=== PATIENT | female | born 1950 | race Hispanic/Latino ===

== ENCOUNTER 2017-05-20 14:01 | Emergency (ER) | payer MEDICARE ==
[~2017-05-20] VITALS: Ht 142.2 cm; Wt 92.1 kg
[~2017-05-20 14:01] MED LIST: ASCORBIC ACID500 MG PO; ASPIRIN325 MG PO; BACLOFEN10 MG PO; CRESTOR10 MG PO; FENOFIBRATE145 MG PO; GABAPENTIN100 MG PO; GABAPENTIN300 MG PO; GLIMEPIRIDE2 MG PO; LEVOTHYROXINE112 MCG PO; LIDOCAINE HCL50 ML TOP; LOSARTAN-HCTZ1 EAC1 PO; METFORMIN HCL500 MG PO; METOPROLOL SUCC50 MG PO; NIFEDIPINE ER30 M1 PO; PIOGLITAZONE HC45 MG PO; PLAVIX75 MG PO; VITAMIN D1000 UNI1 PO
== END 2017-05-20 14:44 | disposition home or self-care (01) ==
LOC: ER 14:01
DX: M79.621 Pain in right upper arm (principal); B02.9 Zoster without complications; I10 Essential (primary) hypertension; E11.9 Type 2 diabetes mellitus without complications; Z86.73 Personal history of transient ischemic attack (TIA), and cerebral infarction without residual deficits
CPT/HCPCS: 36415; 82948; 99282

== ENCOUNTER 2017-07-21 13:58 | Emergency (ER) | payer MEDICARE ==
[~2017-07-21] VITALS: Ht 142.2 cm; Wt 74.8 kg
--- OUTSIDE RECORDS SUMMARY | 2017-07-21 14:01 | XMS REPORT ---
[facility] Address Unknown Phone Unavailable Care Team Providers Care Staff Physical Therapy Assistant Name Role Phone MIKE WEINSTEIN Unavailable Unavailable Problems This patient has no known problems. Allergies, Adverse Reactions, Alerts This patient has no known allergies or adverse reactions. Medications This patient has no known medications. Results Test Description Test Time Test Comments Text Results Atomic Results Result Comments CHEST XRAY LINE PLACEMENT [facility] [address] [address] Patient Name: JUAN FLEMING MR #: [id number] : 1950 Age/Sex: 66/F Req #: [id number] Adm Physician: MIKE WEINSTEIN MD Ordered by: MK HENRY MD Report #: [id number] Location: ICU Room/Bed: [place] [address] Procedure: [id number] DX/CHEST XRAY LINE PLACEMENT Exam Date: 01/28/17 Exam Time: 0920 REPORT STATUS: Signed PROCEDURE: A single AP view of the chest. COMPARISON: 01/27/2017. INDICATIONS: PICC LINE PLACEMENT FINDINGS: Interval placement of a right upper extremity PICC. The tip projects over the affected region of the low superior vena cava. Lungs remain well-inflated without consolidation, pleural effusion, or pneumothorax. Stable cardiomediastinal contour. No acute osseous abnormality. IMPRESSION: Interval placement of right upper extremity PICC. The tip projects over the low superior vena cava. Clear lungs. Dictated by: Curtis Adkins M.D. on 01/28/2017 at 9:45 Electronically approved by: Curtis Adkins M.D. on 01/28/2017 at 9:45 Dictated By: CURTIS ADKINS MD 4 Transcribed By: DAKSHA on 01/28/17944 COPY TO: MK HENRY MD CT BRAIN WO [place] [address] Patient Name: JUAN FLEMING MR #: [id number] : 1950 Age/Sex: 66/F Req # : [id number] Adm Physician: MIKE WEINSTEIN MD Ordered by: MK HENRY MD Report #: [id number] Location: ICU Room/Bed: [place] [address] Procedure: [id number] CT/CT BRAIN WO Exam Date: 01/27/17 Exam Time: 2241 REPORT STATUS: Signed EXAMINATION : Head CT without contrast. HISTORY:Altered mental status. COMPARISON:CT brain from 01/25/2017 and MRI brain from 01/26/2017. TECHNIQUE: Multidetector axial images were obtained from the foramen magnum to the vertex without contrast. The images were reconstructed using brain and bone algorithms. Thin section brain images were reformatted into coronal and sagittal planes. Intravenous contrast: None IMAGE QUALITY: Acceptable. FINDINGS: Skull/scalp: No abnormality. Parenchyma: Unchanged focal hypodensity in the right striata capsular region involving the caudate head, anterior limb of right internal capsule and the putamen represents evolving acute vascular insult. Mild supratentorial white matter microvascular ischemic changes are better visualized in the prior MRI brain. No acute hemorrhage or mass. Arteries: Atherosclerotic calcification in bilateral carotid siphon. Dural sinuses: No abnormal density suggestive of thrombosis. Ventricles: Mild mass effect in the frontal horn of right lateral ventricle. No hydrocephalus. Extra-axial spaces: No abnormal density. Brain volume: Mild generalized age-related cerebral volume loss. Craniocervical junction: No mass, Chiari malformation, or basilar invagination. Sella: No mass. Paranasal/mastoid sinuses: Imaged portions unremarkable. IMPRESSION: Evolving acute vascular insult in right striato-capsular region. No hemorrhagic conversion. Mild generalized age-related cerebral volume loss. Signed by: Dr. Jade Tinsley M.D. on 01/27/2017 11:19 PM Dictated By: JADE TINSLEY MD 18 Transcribed By: TIMMY on 01/27/172318 COPY TO: MK HENRY MD CHEST SINGLE (PORTABLE) [place] [address] Patient Name: JUAN FLEMING MR #: [id number] : 1950 Age/Sex: 66/F Req #: [id number] Adm Physician: MIKE WEINSTEIN MD Ordered by: MK HENRY MD Report #: [id number] Location: MED/SURG Room/ Bed: [facility] Procedure: [id number] DX/CHEST SINGLE ( PORTABLE) Exam Date: 01/27/17 Exam Time: 1705 REPORT STATUS: Signed Portable chest x-ray INDICATION: Shortness of breath COMPARISON: None FINDINGS: Frontal view of the chest obtained at 1656 hours. The cardiac silhouette is normal. Mild tracheobronchial calcifications. The pulmonary vascular markings are normal. The lungs demonstrate no mass or infiltrate. The costophrenic angles are sharp. There is no pneumothorax. The osseous structures are intact and normal in morphology. IMPRESSION: No acute cardiopulmonary process on this single image. Signed by: Dr. Roman Laguerre MD on 01/27/2017 6:15 PM Dictated By: ROMAN LAGUERRE MD 14 Transcribed By: TIMMY on 01/27/171814 COPY TO: MK HENRY MD MRI BRAIN WO [place] [address] Patient Name: JUAN FLEMING MR #: [id number] : 1950 Age/Sex: 66/F Req # : [id number] Adm Physician: MK HENRY MD Ordered by: MK HENRY MD Report #: [id number] Location: MED/SURG Room/Bed: [facility] ____ Procedure: [id number] MRI/MRI BRAIN WO Exam Date: 01/26/17 Exam Time: 924 REPORT STATUS: Signed Exam: MRI brain, History: Facial droop, right-sided headache Comparison studies: CT, 01/25/2017 Technique: Brain: Pre-contrast: Sagittal T2; axial T2, T1-IR , MPGR, DWI, axial and coronal T2 flair 3-D peap-so-bzqwqr intracranial MRA. Intravenous contrast: None Findings: Brain: Scalp: No abnormal signal. No masses. Bone marrow: Normal in signal intensity. Brain sulci: Mildly prominent . Ventricles: Normal in size . No hydrocephalus. Parenchyma: Acute infarct in the right basal ganglia involving the right caudate head, putamen, and globus pallidus. No foci susceptibility are seen within this infarct. Scattered small FLAIR hyperintensities in the supratentorial white matter represent chronic small vessel ischemic changes. Suprasellar region: No abnormalities. Craniocervical junction: No abnormalities. Patent foramen magnum. No Chiari one malformation Vessels: Normal flow-voids in the arteries and sinuses. Incidental: Bilateral lens prostheses noted. Impression: 1. 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 Finding discussed with Nurse Crane at 11:30 01/26/2017. 2. Scattered small chronic white matter small vessel ischemic changes. Signed by: DR Tucker Mckeon M.D. on 01/26/2017 1:01 PM Dictated By: TUCKER FONTANA MD 1301 Transcribed By : TIMMY on 01/26/17 1301 COPY TO: MK HENRY MD CT BRAIN WO [place] [address] Patient Name: JUAN FLEMING MR #: [id number] : 1950 Age/Sex: 66/F Req # : [id number] [facility] Physician: Ordered by: BRIDGER MORGAN MD Report #: [id number] Location: ER Room/Bed: Procedure: [id number] CT/CT BRAIN WO Exam Date: 01/25/17 Exam Time: 2310 REPORT STATUS: Signed EXAMINATION: Head CT without contrast. HISTORY:Facial droop, right-sided headache. Rule out possible stroke. COMPARISON:None. TECHNIQUE: Multidetector axial images were obtained from the foramen magnum to the vertex without contrast. The images were reconstructed using brain and bone algorithms. Thin section brain images were reformatted into coronal and sagittal planes. Intravenous contrast: None IMAGE QUALITY: Acceptable. FINDINGS: Skull/scalp: No abnormality. Parenchyma: Focal hypodensity centered in the anterior aspect of right lentiform nucleus, that extends to the anterior limb of right internal capsule and right caudate head, represents age indeterminate possible evolving subacute vascular insult. No acute hemorrhage. Arteries: Atherosclerotic calcification in bilateral carotid siphon and V4 segment of left vertebral artery. Dural sinuses: No abnormal density suggestive of thrombosis. Ventricles: No hydrocephalus or displacement. Extra- axial spaces: No abnormal density. Brain volume: Mild generalized age- related cerebral volume loss. Craniocervical junction: No mass, Chiari malformation, or basilar invagination. Sella: No mass. Paranasal/ mastoid sinuses: Imaged portions unremarkable. IMPRESSION: 1. Age indeterminate, possible evolving subacute vascular insult in right striato- capsular region. If there is clinical concern for acute stroke can be further evaluated with MRI of the brain without contrast. 2. Mild generalized age- related cerebral volume loss. Signed by: Dr. Jade Tinsley M.D. on 2016 11:31 PM Dictated By: JADE TINSLEY MD 233 Transcribed By: TIMMY on 01/25/172330 COPY TO: BRIDGER MORGAN MD
[2017-07-21] MEDS ORDERED: ONDANSETRON HCL INJ 2 MG/ML VIAL IV STA (14:13)
[2017-07-21 15:20] LABS: BASOPHILS % 0.4 % (0.0-1.0); EOSINOPHILS # (AUTO) 0.2 (0.0-0.4); EOSINOPHILS % 1.4 % (0.0-6.0); HEMATOCRIT 31.7 % (34.2-44.1); HEMOGLOBIN 11.1 g/dL (12.0-16.0); LYMPHOCYTES # (AUTO) 1.5 (1.0-3.2); LYMPHOCYTES % 13.9 % (18.0-39.1); MEAN CORPUSCULAR HEMOGLOBIN 29.8 pg (28-32); MEAN CORPUSCULAR VOLUME 85.2 fL (81-99); MONOCYTES # (AUTO) 0.4 (0.2-0.8); MONOCYTES % 3.9 % (4.4-11.3); NEUTROPHILS # (AUTO) 8.5 (2.1-6.9); NEUTROPHILS % 79.9 % (38.7-80.0); PLATELET COUNT 390 x10e3/uL (140-360); RED BLOOD COUNT 3.72 x10e6/uL (3.6-5.1); RED CELL DISTRIBUTION WIDTH 13.3 % (11.7-14.4)
--- NOTE | 2017-07-21 15:24 | Diagnostic Imaging Report ---
EXAMINATION: CHEST SINGLE (PORTABLE) INDICATION: \S\ERMD ORDER \[id number] \S\1455 \S\Y COMPARISON: Chest radiograph from 01/28/2017 FINDINGS: AP view TUBES and LINES: None. LUNGS: Lungs are well inflated. Lungs are clear. There is no evidence of pneumonia or pulmonary edema. PLEURA: No pleural effusion or pneumothorax. HEART AND MEDIASTINUM: The cardiomediastinal silhouette is unremarkable.. BONES AND SOFT TISSUES: No acute osseous lesion. Soft tissues are unremarkable. UPPER ABDOMEN: No free air under the diaphragm. IMPRESSION: No acute thoracic abnormality. Signed by: Dr. Migdalia Garza M.D. on 07/21/2017 3:21 PM
[2017-07-21 15:35] LABS: ALANINE AMINOTRANSFERASE 36 IU/L (0-55); ALBUMIN 2.9 g/dL (3.5-5.0); ALBUMIN/GLOBULIN RATIO 0.6 (0.8-2.0); ALKALINE PHOSPHATASE 139 IU/L (40-150); AMYLASE 52 U/L (25-125); ANION GAP 15.9 mmol/L (8-16); BLOOD UREA NITROGEN 22 mg/dL (7-26); BUN/CREATININE RATIO 15 (6-25); CALCIUM 9.5 mg/dL (8.4-10.2); CARBON DIOXIDE 22 mmol/L (22-29); CHLORIDE 101 mmol/L (98-107); CREATINE KINASE 83 IU/L (29-168); CREATININE, SERUM 1.44 mg/dL (0.57-1.11); EST GLOMERULAR FILTRATION RATE 36 ML/MIN (60-); GLUCOSE 175 mg/dL (74-118); LIPASE 29 U/L (8-78); POTASSIUM 4.9 mmol/L (3.5-5.1); SODIUM 134 mmol/L (136-145)
[2017-07-21 15:44] LABS: BILIRUBIN,URINE NEGATIVE (NEGATIVE); CLARITY,URINE CLEAR (CLEAR); COLOR,URINE YELLOW (YELLOW); KETONES,URINE NEGATIVE (NEGATIVE); LEUKOCYTE ESTERASE ,URINE NEGATIVE (NEGATIVE); NITRITE,URINE NEGATIVE (NEGATIVE); PROTEIN,URINE DIPSTICK 3+ (NEGATIVE); URINE UROBILINOGEN 0.2 mg/dL (0.2 - 1)
[2017-07-21 15:56] LABS: INR 1.25; PROTHROMBIN TIME 14.8 seconds (11.9-14.5)
[2017-07-21 15:57] LABS: PARTIAL THROMBOPLASTIN TIME 43.7 seconds (23.8-35.5)
[2017-07-21 15:58] LABS: BACTERIA,URINE RARE /HPF; EPITHELIAL CELLS,URINE FEW /LPF; RBC,URINE 0-5 /HPF (0-5)
[2017-07-21 15:59] LABS: WBC,URINE (MAN) 0-5 /HPF (0-5)
[2017-07-21 16:01] LABS: HYALINE CASTS 0-1 (0-1)
[2017-07-21 16:03] LABS: MUCUS,URINE RARE (RARE); RENAL EPITHELIAL CELLS,URINE RARE; TRANSITIONAL EPI CELLS,URINE FEW
[2017-07-21 16:58] VITALS: BP 169/94
== END 2017-07-21 17:05 | disposition home or self-care (01) ==
LOC: ER 13:58
DX: R11.2 Nausea with vomiting, unspecified (principal); I10 Essential (primary) hypertension; E11.9 Type 2 diabetes mellitus without complications; G62.9 Polyneuropathy, unspecified; Z86.73 Personal history of transient ischemic attack (TIA), and cerebral infarction without residual deficits
CPT/HCPCS: 36415; 71045; 80053; 81001; 82150; 82550; 82553; 83690; 83880; 84484; 85025; 85610; 85730; 93005; 99283; J2405

== ENCOUNTER 2018-01-16 15:15 | Emergency (ER) | payer MEDICARE, OTHER ==
[~2018-01-16] VITALS: Ht 142.2 cm; Wt 73.5 kg
[2018-01-16] MEDS ORDERED: ACETAMINOPHEN 325 MG TAB PO ONE (15:45)
--- NOTE | 2018-01-16 16:44 | Diagnostic Imaging Report ---
Exam: Right wrist Series. History: Right wrist injury, swelling for 2 days Comparison: None. Findings: 3 views of the right wrist. There is decreased bone mineralization, which limits evaluation of bony structures.. Negative for acute, displaced fracture or dislocation. Mild degenerative changes in the first carpometacarpal joint. No abnormal soft tissue calcification or mass. Prominent vascular calcifications. Soft tissue swelling around the wrist and dorsal aspect of the hand. Impression: 1. Soft tissue swelling around the wrist and dorsal aspect of the hand. No acute, displaced fracture or dislocation. Signed by: Dr. Nakul Stokes M.D. on 01/16/2018 4:41 PM
[2018-01-16] MEDS ORDERED: HYDROCODONE/APAP 5MG-325MG TAB PO ONE (17:30)
[2018-01-16] MEDS ORDERED: TYLENOL WITH C1 EACH PO (17:59)
[2018-01-16 18:20] VITALS: BP 176/80
== END 2018-01-16 18:17 | disposition home or self-care (01) ==
LOC: ER 15:15
DX: M25.531 Pain in right wrist (principal); X50.1XXA Overexertion from prolonged static or awkward postures, initial encounter; Y92.008 Other place in unspecified non-institutional (private) residence as the place of occurrence of the external cause; I10 Essential (primary) hypertension; E11.9 Type 2 diabetes mellitus without complications; E78.5 Hyperlipidemia, unspecified; E07.9 Disorder of thyroid, unspecified; Z86.73 Personal history of transient ischemic attack (TIA), and cerebral infarction without residual deficits
CPT/HCPCS: 99283

== ENCOUNTER → 2018-05-16 | Outpatient (CLI) | payer MEDICARE ==
[2018-05-02 09:45] LABS: CREATININE, SERUM 2.38 mg/dL (0.57-1.11)
[~2018-05-16] MED LIST changes: +TYLENOL WITH C1 EACH PO
--- NOTE | 2018-05-17 00:37 | Diagnostic Imaging Report ---
MRA HEAD WO, MRA NECK WO HISTORY: Autoimmune disease, cerebrovascular event COMPARISON: Report from head CT dated 01/27/2017, report from MRI of the brain dated 01/26/2017 (images not available at time of dictation) TECHNIQUE: Axial 2D cervical, and axial 3D intracranial kwfb-kh-iriqzp MRA images were obtained without contrast. Maximum intensity projection and coronal/sagittal reformatted images were created. If present, any cervical carotid stenosis will be measured as a percentage relative to the [place] artery distal to the stenosis. FINDINGS: CERVICAL MRA: Noise and motion artifacts obscure some details. Right Carotid: No gross flow abnormalities. The right internal carotid artery has a slight retropharyngeal course. Left Carotid: No gross flow abnormalities. The left internal carotid artery has a slight retropharyngeal course. Right vertebral artery: No gross flow abnormalities. Left vertebral artery: No gross flow abnormalities. INTRACRANIAL MRA: Carotid arteries: No flow abnormalities in the intracranial internal carotid arteries. There is at least mild focal stenosis in the left M1 segment. Normal bilateral A1 and right M1 segments. Vertebrobasilar Circulation: Right vertebral artery: No flow abnormalities. Left vertebral artery: No flow abnormalities. Basilar artery: No flow abnormalities. Posterior cerebral arteries: No flow abnormalities. Normal Variants: ACom: Visualized. PComs: Not clearly visualized. Vertebral arteries: Co-dominant. IMPRESSION: 1. At least mild focal stenosis in the M1 segment of the left middle cerebral artery. 2. No other intracranial or cervical MRA abnormalities. Signed by: Dr. Eddi Julio M.D. on 05/17/2018 12:34 AM
--- NOTE | 2018-05-17 00:37 | Diagnostic Imaging Report ---
MRA HEAD WO, MRA NECK WO HISTORY: Autoimmune disease, cerebrovascular event COMPARISON: Report from head CT dated 01/27/2017, report from MRI of the brain dated 01/26/2017 (images not available at time of dictation) TECHNIQUE: Axial 2D cervical, and axial 3D intracranial czmd-cr-azyauw MRA images were obtained without contrast. Maximum intensity projection and coronal/sagittal reformatted images were created. If present, any cervical carotid stenosis will be measured as a percentage relative to the [place] artery distal to the stenosis. FINDINGS: CERVICAL MRA: Noise and motion artifacts obscure some details. Right Carotid: No gross flow abnormalities. The right internal carotid artery has a slight retropharyngeal course. Left Carotid: No gross flow abnormalities. The left internal carotid artery has a slight retropharyngeal course. Right vertebral artery: No gross flow abnormalities. Left vertebral artery: No gross flow abnormalities. INTRACRANIAL MRA: Carotid arteries: No flow abnormalities in the intracranial internal carotid arteries. There is at least mild focal stenosis in the left M1 segment. Normal bilateral A1 and right M1 segments. Vertebrobasilar Circulation: Right vertebral artery: No flow abnormalities. Left vertebral artery: No flow abnormalities. Basilar artery: No flow abnormalities. Posterior cerebral arteries: No flow abnormalities. Normal Variants: ACom: Visualized. PComs: Not clearly visualized. Vertebral arteries: Co-dominant. IMPRESSION: 1. At least mild focal stenosis in the M1 segment of the left middle cerebral artery. 2. No other intracranial or cervical MRA abnormalities. Signed by: Dr. Eddi Julio M.D. on 05/17/2018 12:34 AM
== END ==
LOC: MRI 05-02 08:32
PROVIDERS: ATTEND Psychiatry & Neurology Clinical Neurophysiology
DX: I63.89 Other cerebral infarction (principal); D89.89 Other specified disorders involving the immune mechanism, not elsewhere classified; F48.2 Pseudobulbar affect
CPT/HCPCS: 36415; 70544; 70547; 82565; 84520

== ENCOUNTER 2019-06-28 13:59 | Emergency (ER) | payer OTHER ==
[~2019-06-28] VITALS: Ht 142.2 cm; Wt 73.5 kg
[2019-06-28] MEDS ORDERED: LISINOPRIL 20 MG TAB PO NR (14:30)
[2019-06-28] MEDS ORDERED: LISINOPRIL 10 MG TAB PO NR (14:30)
--- NOTE | 2019-06-28 16:05 | Diagnostic Imaging Report ---
History: Fall, pain Comparison studies: None Technique: Axial images were obtained from the brain and cervical spine. Coronal and sagittal images reconstructed from the axial data. Dose modulation, iterative reconstruction, and/or weight based adjustment of the mA/kV was utilized to reduce the radiation dose to as low as reasonably achievable. Intravenous contrast: None Findings: Head CT: Scalp/skull: Small hematoma of the left superior periorbital soft tissues. No fractures, blastic or lytic lesions. Brain sulci: Appropriate for age. Ventricles: Normal in size and configuration. No hydrocephalus. Extra-axial spaces: No masses. No fluid collections. Parenchyma: Cystic encephalomalacia of the right striatocapsular is likely from a remote lacunar infarct. Patchy periventricular hypodensities are consistent with mild chronic microvascular ischemic changes. No masses, hemorrhage, acute or chronic cortical vascular insults. Sellar/suprasellar region: No abnormalities. Craniocervical junction: Patent foramen magnum. No Chiari one malformation. Cervical spine CT: Airway: Patent. Fractures: None. Soft tissues: No gross abnormalities. Atlantoaxial articulation: Intact. Alignment: Reversal of the normal cervical lordosis.. No scoliosis. Cervicomedullary junction: No abnormalities. Patent foramen magnum. Vertebrae: No infection or neoplasm. Degenerative changes: Multilevel cervical spondylosis with varying degrees of disc space height loss, disc osteophyte complexes, uncovertebral hypertrophy, and facet hypertrophy. Degenerative changes result in at least mild to moderate spinal canal stenosis at the level of C4 with varying degrees of neural foraminal stenosis, moderate on the right at C6-C7, bilaterally at C5-C6, and on the left at C4-C5. Incidental findings: None. IMPRESSION: Head CT: Small hematoma the left superior periorbital soft tissues. No underlying fracture or acute intracranial abnormality. Chronic findings: 1. Cystic encephalomalacia of the right external capsule from prior lacunar infarct. 2. Mild chronic microvascular ischemic changes. Cervical spine CT: 1. No acute osseous injury. 2. Cannot adequately evaluate for ligament, spinal cord and or vascular abnormalities. Signed by: DR Tucker Mckeon M.D. on 06/28/2019 6:30 PM
[2019-06-28] MEDS ORDERED: HYDRALAZINE HCL 20 MG/ML VIAL IV NR (17:15)
[2019-06-28] MEDS ORDERED: ACETAMINOPHEN/CODEINE 300MG - 30MG TAB PO ONE (17:15)
[2019-06-28] MEDS ORDERED: HYDRALAZINE HCL 20 MG/ML VIAL ONE (17:16)
[2019-06-28] MEDS ORDERED: ACETAMINOPHEN/CODEINE 300MG - 30MG TAB ONE (17:17)
== END 2019-06-28 17:46 | disposition home or self-care (01) ==
LOC: ER 13:59
DX: S00.83XA Contusion of other part of head, initial encounter (principal); W01.0XXA Fall on same level from slipping, tripping and stumbling without subsequent striking against object, initial encounter; Y92.488 Other paved roadways as the place of occurrence of the external cause; I10 Essential (primary) hypertension; E11.9 Type 2 diabetes mellitus without complications; E78.5 Hyperlipidemia, unspecified; N18.9 Chronic kidney disease, unspecified
CPT/HCPCS: 70450; 72125; 99282; J0360

== ENCOUNTER 2019-08-22 15:20 | Inpatient (IN) | payer MEDICARE, OTHER ==
[~2019-08-22] VITALS: Ht 142.2 cm; Wt 73.5 kg
[2019-08-22] MEDS ORDERED: ASPIRIN 81 MG CHEW TAB PO ONE ×2 (15:45→18:45)
--- NOTE | 2019-08-22 16:08 | NUR ---
PATIENT DOES NOT KNOW MEDICATION LIST
[2019-08-22 16:17] LABS: BASOPHILS # (AUTO) 0.1 (0.0-0.1); BASOPHILS % 1.3 % (0.0-1.0); EOSINOPHILS # (AUTO) 0.2 (0.0-0.4); EOSINOPHILS % 2.8 % (0.0-6.0); HEMATOCRIT 29.8 % (34.2-44.1); HEMOGLOBIN 9.6 g/dL (12.0-16.0); LYMPHOCYTES # (AUTO) 1.7 (1.0-3.2); MEAN CORPUSCULAR HEMOGLOBIN 29.7 pg (28-32); MEAN CORPUSCULAR HGB CONC 32.2 g/dL (31-35); MEAN CORPUSCULAR VOLUME 92.3 fL (81-99); MONOCYTES # (AUTO) 0.5 (0.2-0.8); MONOCYTES % 6.6 % (4.4-11.3); NEUTROPHILS # (AUTO) 5.2 (2.1-6.9); NEUTROPHILS % 66.8 % (38.7-80.0); PLATELET COUNT 357 x10e3/uL (140-360); RED BLOOD COUNT 3.23 x10e6/uL (3.6-5.1); RED CELL DISTRIBUTION WIDTH 13.2 % (11.7-14.4)
[2019-08-22] MEDS ORDERED: LASIX20 MG PO (16:24)
[2019-08-22 16:32] LABS: CALCIUM 8.9 mg/dL (8.4-10.2); CREATININE, SERUM 4.52 mg/dL (0.57-1.11)
[2019-08-22 16:34] LABS: INFLUENZAE A&B ANTIGEN (RAPID) NEGATIVE (NEGATIVE)
[2019-08-22 16:35] LABS: STREPTOCOCCUS GRP A ANTIGEN NEGATIVE (NEGATIVE)
[2019-08-22 16:39] LABS: CREATINE KINASE MB 12.7 ng/mL (0-5.0)
[2019-08-22 16:56] LABS: ALBUMIN 2.7 g/dL (3.5-5.0); ALBUMIN/GLOBULIN RATIO 0.7 (0.8-2.0); CALCIUM 9.3 mg/dL (8.4-10.2); CREATININE, SERUM 4.58 mg/dL (0.57-1.11)
[2019-08-22 17:02] LABS: CREATINE KINASE MB 12.2 ng/mL (0-5.0)
[2019-08-22] MEDS ORDERED: SODIUM CHLORIDE 0.9% 1000ML 1,000 ML IV SCH (18:03)
[2019-08-22] MEDS ORDERED: ONDANSETRON HCL INJ 2MG/ML 2ML 2 MG/ML VIAL IV PRN ×2 (18:15→21:00)
--- NOTE | 2019-08-22 18:33 | Diagnostic Imaging Report ---
EXAMINATION: CHEST SINGLE (PORTABLE) INDICATION: ERMD ORDER COMPARISON: None FINDINGS: AP view TUBES and LINES: None. LUNGS/PLEURA: Lungs are well inflated. There are bilateral large pleural effusions with associated atelectasis. HEART AND MEDIASTINUM: The cardiomediastinal silhouette is obscured by adjacent opacities. BONES AND SOFT TISSUES: No acute osseous lesion. Soft tissues are unremarkable. UPPER ABDOMEN: No free air under the diaphragm. IMPRESSION: Bilateral large pleural effusions with associated atelectasis Signed by: Marlo Griggs MD on 08/22/2019 6:30 PM
[2019-08-22] MEDS ORDERED: DEXAMETHASONE SOD PHOS 10 MG/1 ML VIAL IV NR (18:45)
[2019-08-22] MEDS ORDERED: DIPHENHYDRAMINE HCL INJ 50 MG/ML VIAL IV NR ×2 (18:45→19:00)
--- NOTE | 2019-08-22 18:45 | NUR ---
COVID TEST COMPLETED. RIGHT AFTER TEST COMPLETED, PATIENT C/O OF SHORTNESS OF BREATH. SAT 97%, PLACED ON 2L/NC
[2019-08-22] MEDS ORDERED: FAMOTIDINE 20 MG/2 ML VIAL IV NR (19:14)
[2019-08-22] MEDS ORDERED: MELATONIN 5 MG TABLET PO PRN (21:00)
[2019-08-22] MEDS ORDERED: HYDROCODONE/APAP 5MG-325MG TAB PO PRN (21:00)
[2019-08-22] MEDS ORDERED: MORPHINE SULFATE INJ 4 MG/ML INJ 1ML IV PRN (21:00)
[2019-08-22] MEDS ORDERED: ACETAMINOPHEN 325 MG TAB PO PRN (21:00)
--- NOTE | 2019-08-22 21:44 | NUR ---
confirmed with attending, vq scan to be done tommorow morning
[2019-08-22] MEDS ORDERED: HEPARIN SOD (PORCINE) 5,000 UNIT/ML VIAL IV ONE (21:45)
[2019-08-22] MEDS: FUROSEMIDE INJ 10 MG/ML 4 ML VIAL IV SCH (21:58)
[2019-08-22] MEDS ORDERED: FUROSEMIDE INJ 10 MG/ML 2 ML VIAL ONE (22:00)
[2019-08-22] MEDS ORDERED: FUROSEMIDE INJ 10 MG/ML 4 ML VIAL ONE (22:00)
[2019-08-22] MEDS ORDERED: FUROSEMIDE INJ 10 MG/ML 10 ML VIAL IV ONE (22:00)
[2019-08-22 22:43] LABS: INR 1.12; PROTHROMBIN TIME 15.1 seconds (11.9-14.5)
[2019-08-22 22:44] LABS: PARTIAL THROMBOPLASTIN TIME 43.7 seconds (23.8-35.5)
[2019-08-22] MEDS ORDERED: DEXAMETHASONE SOD PHOS 10 MG/1 ML VIAL IV ONE (22:45)
[2019-08-22 22:57] LABS: CREATINE KINASE MB 12.4 ng/mL (0-5.0)
[2019-08-22 23:00] VITALS: BP 154/101
[2019-08-22] MEDS: HEPARIN 25,000 UNIT 900 UNIT in DEXTROSE 5% 250ML 250 ML IV SCH (23:00)
--- NOTE | 2019-08-22 23:00 | NUR ---
Patient received to room 198 via stretcher from the emergency room. patient denies pain at this time. heparin bolus given and drip initiated per orders. Patient sob with /nc in use. patient placed on bedside monitor. bp and heart rate elevated. Sylvester to be placed to Dr. Ureña re: bp and hr. admit assessment and history complete. call renee placed within reach. patient instructed to call for assistance when needed.
[2019-08-22] MEDS ORDERED: HEPARIN 25,000 UNIT DRIP IV ONE (23:01)
--- NOTE | 2019-08-22 23:22 | History and Physical ---
CHIEF COMPLAINT: Shortness of breath. HISTORY OF PRESENT ILLNESS: A 69-year-old female, very noncompliant with her medical care history of hypertension, type 2 diabetes, CKD stage 4 follows up with Nephrology, Dr. Garcias. She comes into the ED with complaint of orthopnea and dyspnea on exertion. The patient reports she has been short of breath ongoing for the last 2 weeks. She has not followed up with Dr. Garcias in a significant period of time. She denies any chest pain or any history of cardiac disease. Denies any cough, congestion, or any fever. Denies any travel. Denies any sick contacts at home. She reports she has been at home for the last 2 weeks. The patient seen and evaluated at bedside on the medical floor in the emergency room. She is currently very short of breath. She was found to have an elevated CK, fluids were given, fluids now were discontinued, and high dose of Lasix has been ordered. V/Q scan has been ordered as well. REVIEW OF SYSTEMS: Pertinent positives shortness of breath, orthopnea, dyspnea on exertion. The rest of 14-point review of systems have been reviewed with the patient and are negative. ALLERGIES: IODINE, LORAZEPAM. HOME MEDICATIONS: Levothyroxine, nifedipine, gabapentin, Lasix, vitamin D3, and aspirin 325 mg daily. PAST MEDICAL HISTORY: CKD stage 4, hypertension, hypothyroidism, peripheral neuropathy, medical noncompliance. PAST SURGICAL HISTORY: Reports none. FAMILY HISTORY: Hypertension and diabetes. SOCIAL HISTORY: No drugs. No alcohol. Does not smoke. Good social support. PHYSICAL EXAMINATION: VITAL SIGNS: Temperature is 98.5, pulse is 95, respirations 20, blood pressure 142/98, pulse ox 100% on room air. GENERAL: Not in acute distress. Alert and oriented x3. Cooperative on examination. HEENT: Head; normocephalic, atraumatic. Eyes; pupils are equal, round, and reactive to light bilaterally. Extraocular movements intact bilaterally. NECK: Supple. Good range of motion. Throat; No evidence of erythema or exudates in the posterior pharynx. Has poor dentition. PULMONARY: Decreased breath sounds bilaterally. Has expiratory wheezing appreciated with crackles and rales present at the lower bases of the lung. CARDIOVASCULAR: Positive S1 and S2. No murmurs, rubs, or gallops. ABDOMEN: Soft, nondistended and nontender to palpation. Bowel sounds are present. MUSCULOSKELETAL: Strength is 5/5 throughout. No evidence of any muscle deficits on examination. No weakness appreciated. NEUROLOGIC: Cranial nerves II through XII grossly intact. No evidence of any neurological deficits on exam. SKIN: Intact. Warm to touch. Good cap refill. PSYCHIATRIC: Normal affect and mood. EXTREMITIES: No edema. Good range of motion throughout. LABORATORY DATA: Labs show white count 7.7, hemoglobin 9.6, hematocrit 29.8, platelets of 357. Coagulation, D-dimer 1.88. Chemistry; sodium 138, potassium 5, chloride 109, bicarb 19, anion gap of 15, BUN is 42, creatinine 4.5, and GFR is 10. Glucose is 87, calcium is 9.3, ferritin is 233, total bilirubin was 0.3. AST 29, ALT 23, alkaline phosphatase 109. CK is 1003, CK-MB 12.2, troponin 0.492, total protein 6.6, albumin 2.7. Chronic virus PCR, pending. Flu negative. Group A strep negative. MICROBIOLOGY: Throat cultures are pending. IMAGING STUDIES: Bilateral large pleural effusion with associated atelectasis. IMPRESSION: 1. Acute respiratory distress secondary to possibly pulmonary edema with pleural effusion seen on imaging studies. 2. Chronic kidney disease stage 5, likely due to hypertension. 3. Uncontrolled hypertension. 4. Vps-KD-qppqrgzxp myocardial infarction. 5. Rhabdomyolysis. 6. Anemia. PLAN: At this time, we will stop all fluid that were initially given in the ER. Give Lasix 100 mg IV x1 and then schedule Bumex 2 mg IV q.6 hours x4 doses due to underlying pulmonary edema. 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 Monitor her electrolytes closely. Get a.m. labs. Resume same antihypertensive medications p.r.n. hydralazine. As for NSTEMI, Cardiology has been consulted. The patient was started on a heparin drip. As for her rhabdomyolysis, we will get a repeat CK in the morning, but it will be very difficult to initiate any more fluids at this time due to her pulmonary edema. She does have some mild elevation of D-dimer in which a V/Q scan has been ordered and she is currently on a heparin drip. We will get PT and OT evaluation. Heparin drip for DVT prophylaxis. Consultants involved are Renal, Pulmonary and Cardiology. MD ESTER Guerra/NORBERTO /[id number]
[2019-08-23] VITALS (7 sets, daily range): BP systolic 124–162; BP diastolic 70–97
--- NOTE | 2019-08-23 | NUR ---
Patient ambulatory to bathroom with assistance with [address] patient voids without difficulty.
--- NOTE | 2019-08-23 00:15 | NUR ---
new iv #22 placed to right wrist x 1 stick.
--- NOTE | 2019-08-23 00:50 | NUR ---
Spoke to re: bp and home medications. ne new orders noted and he will look at home med list in am.
--- NOTE | 2019-08-23 01:53 | NUR ---
patient appears to be resting quietly. hob elevated for comfort. no distress noted at this time.
--- NOTE | 2019-08-23 05:00 | NUR ---
patient oob to bathroom with assistance. patient voids without difficulty. patient states, " I feel so much better. " iv heparin continues to infuse without difficulty.
[2019-08-23] MEDS: FUROSEMIDE INJ 10 MG/ML 4 ML VIAL IV SCH ×4 (05:12→21:05)
[2019-08-23 05:19] LABS: BASOPHILS % 0.5 % (0.0-1.0); EOSINOPHILS # (AUTO) 0.1 (0.0-0.4); EOSINOPHILS % 1.8 % (0.0-6.0); HEMATOCRIT 30.5 % (34.2-44.1); HEMOGLOBIN 9.7 g/dL (12.0-16.0); LYMPHOCYTES # (AUTO) 0.6 (1.0-3.2); LYMPHOCYTES % 9.8 % (18.0-39.1); MEAN CORPUSCULAR HEMOGLOBIN 29.6 pg (28-32); MEAN CORPUSCULAR HGB CONC 31.8 g/dL (31-35); MONOCYTES # (AUTO) 0.1 (0.2-0.8); MONOCYTES % 0.8 % (4.4-11.3); NEUTROPHILS # (AUTO) 5.7 (2.1-6.9); NEUTROPHILS % 86.8 % (38.7-80.0); PLATELET COUNT 339 x10e3/uL (140-360); RED BLOOD COUNT 3.28 x10e6/uL (3.6-5.1); RED CELL DISTRIBUTION WIDTH 13.2 % (11.7-14.4)
[2019-08-23 05:47] LABS: ANION GAP 14.6 mmol/L (8-16); CREATININE, SERUM 4.69 mg/dL (0.57-1.11); POTASSIUM 5.6 mmol/L (3.5-5.1)
[2019-08-23 06:12] LABS: CREATINE KINASE MB 12.7 ng/mL (0-5.0)
[2019-08-23] MEDS: ASPIRIN 81 MG ENTERIC COATED PO SCH (08:03)
[2019-08-23] MEDS: LEVOTHYROXINE SODIUM 112 MCG TAB PO SCH (08:15)
[2019-08-23] MEDS ORDERED: NIFEDIPINE CR 30 MG TAB PO SCH (09:00)
[2019-08-23 10:46] LABS: CREATINE KINASE MB 13.6 ng/mL (0-5.0)
--- NOTE | 2019-08-23 12:14 | Diagnostic Imaging Report ---
Perfusion Lung Scan NOTE: Lung ventilation studies with xenon are not being performed per the recommendation of the Society of Nuclear Medicine and Molecular Imaging. It is not possible to be certain that the ventilation system is adequately disinfected. Ventilation studies with Tc-99m DTPA particles is contraindicated because the delivery by nebulization generates too many water droplets from the patient's airway. Clinical Information: 69 F with acute onset SOB; elevated D-dimer. Comparison: Chest radiograph 08/22/2019 Discussion: Ventilation images were not obtained. See note above. Perfusion images of the lungs were obtained in multiple projections following intravenous administration of approximately 6 mCi of Tc-99m MAA. Distribution of tracer is irregular throughout the lungs, particularly in the lung bases, consistent with atelectasis/pleural effusions. There are no segmental perfusion defects of any size. The cardiomediastinal silhouette is borderline enlarged. Impression: 1. Scan findings represent a LOW probability for acute pulmonary embolic disease based on the PIOPED II criteria. 2. Scan findings are compatible with diffuse parenchymal and/or obstructive lung disease. Findings are also consistent with pleural effusions and atelectasis in the lung bases. 3. Borderline enlarged cardiac silhouette. Signed by: Dr. Angela Crystal M.D. on 08/23/2019 12:11 PM
[2019-08-23] MEDS ORDERED: SOD POLYSTYRENE SULFONATE SUSP 15 GM/60 ML BTL PO NR (13:30)
--- NOTE | 2019-08-23 13:47 | NUR ---
PT IS IN COVID-19 ISOLATION IN [facility] PT LIVES INDEPENDENTLY W/ HER , IN AN APT IN [place] CONTACT IN EMERGENCY: RONY FLEMING [phone] PCP: DR. DELLA BARRIOS DC PLAN: RETURN HOME WITH HER , PENDING MEDICAL OUTCOME
--- NOTE | 2019-08-23 14:18 | Diagnostic Imaging Report ---
EXAMINATION: CHEST SINGLE (PORTABLE) INDICATION: ^SOB ^[id number] ^[id number] COMPARISON: 08/22/2019 FINDINGS: AP view TUBES and LINES: None. LUNGS: Lungs are well inflated. Mild interstitial edema. PLEURA: No visible pneumothorax. Small right and moderate-sized left pleural effusions, with adjacent mild compressive atelectasis. HEART AND MEDIASTINUM: The cardiomediastinal silhouette is unremarkable. BONES AND SOFT TISSUES: No acute osseous lesion. Soft tissues are unremarkable. UPPER ABDOMEN: No free air under the diaphragm. IMPRESSION: Mild interstitial edema with small right and moderate left pleural effusions with adjacent compressive atelectasis, not significantly changed from prior exam. Signed by: Dr. Karan Alba MD on 08/23/2019 2:15 PM
--- NOTE | 2019-08-23 16:19 | Progress Note ---
DATE: 08/23/2019 Medicine Progress Note SUBJECTIVE: The patient breathing much better today after given diuretics overnight. She refuses dialysis. Also her troponins were elevated in which Cardiology was consulted. She is on a heparin drip. She reports breathing much better today. PHYSICAL EXAMINATION: VITAL SIGNS: Temperature is 97.8, pulse 94, respirations 16, blood pressure 128/70, pulse ox 100% on 2 L nasal cannula. GENERAL: Not in acute distress, alert and oriented x3, cooperative on examination HEENT: Head; normocephalic, atraumatic. Eyes; pupils are reactive to light bilaterally. Extraocular movements intact bilaterally. NECK: Supple. Good range of motion. Throat; no evidence of erythema or exudates in the posterior pharynx. Has poor dentition. PULMONARY: Clear to auscultation bilaterally. No wheezing, rales, or rhonchi. No crackles appreciated. She has bilateral rales, positive crackles appreciated. CARDIOVASCULAR: Positive S1 and S2. No murmurs, rubs, or gallops. ABDOMEN: Soft, nondistended, nontender to palpation. Bowel sounds present. MUSCULOSKELETAL: Strength is 5/5 throughout. No evidence of any muscle deficits on examination. No weakness appreciated. NEUROLOGIC: Cranial nerves 2 through 12 grossly intact. No evidence of any neurological deficits on exam. SKIN: Intact. Warm to touch. Good cap refill. PSYCHIATRIC: Normal affect and mood. EXTREMITIES: No edema. Good range of motion throughout. LABORATORY FINDINGS: Show white count 6.5, hemoglobin 9.7, hematocrit 31, platelets of 339. Chemistry; sodium 137, potassium 5.6, chloride 109, bicarb 19, anion gap of 14, BUN is 45, creatinine 4.6, glucose is 153, calcium is 9. Her troponins were elevated as high as 1.391. Her CK is 717. BNP 2679, albumin 2.7. Coronavirus PCR pending. Flu negative. Group A strep negative. MICROBIOLOGY: None. IMPRESSION: 1. Acute respiratory distress secondary to pulmonary edema with pleural effusion seen on imaging studies, now improved. 2. Chronic kidney disease stage 5 likely secondary to hypertension. Will likely need dialysis now. 3. Uncontrolled hypertension. 4. NSTEMI. 5. Rhabdomyolysis. 6. Anemia. PLAN: At this time, the patient is breathing much better after given IV diuretics. Continue with IV Lasix. Get a chest x-ray, get morning labs. In terms of her renal failure she refuses dialysis. I will wait for her primary clinical specialist to come speak with the patient. As for her blood pressure it is better controlled now, we will continue with same plan of care. Her troponins are elevated for which Cardiology is consulted and she is on a heparin drip. V/Q scan is still pending. CK downtrended for underlying rhabdomyolysis. Get repeat labs including a CK level. Otherwise continue with PT, OT, and heparin drip for DVT prophylaxis. The patient also has mild hyperkalemia. Kayexalate has been ordered as well as diuretics to help with hyperkalemia. Change diet to renal diet. CONSULTANTS: Renal, Pulmonary, and cardiology. MD ESTER Guerra/NORBERTO /[id number]
--- NOTE | 2019-08-23 16:20 | NUR ---
PTT 57.5, NO CHANGE PER HEPARIN PROTOCOL
--- NOTE | 2019-08-23 16:35 | Consultation ---
DATE OF CONSULTATION: REASON FOR CONSULTATION: Heart failure. HISTORY OF PRESENT ILLNESS: This is a 69-year-old woman who has a history of chronic kidney disease, hypertension, diabetes mellitus. She presented to the emergency department with progressively worsening shortness of breath and dyspnea on exertion that has been present for the last two weeks, however, worsened over the last day or so. She denies any fever, sick contacts, or travel. She denies any typical angina or palpitations. REVIEW OF SYSTEMS: A 12-point review of system was conducted, is negative except as stated above in the HPI. PAST MEDICAL HISTORY: As stated above in the HPI. PAST SURGICAL HISTORY: None recent. PAST FAMILY HISTORY: Noncontributory. CURRENT SOCIAL HISTORY: No illicit drug, alcohol, tobacco use. ALLERGIES: IODINE, LORAZEPAM. MEDICATIONS: See medication reconciliation form. PHYSICAL EXAMINATION: VITAL SIGNS: Temperature is 97.8, heart rate is 94, respirations are 16, blood pressure is 128/70 ox saturation 100% on 2 L nasal cannula/ GENERAL: She is Well-appearing, well built, no apparent distress, seated at bedside. LUNGS: Her respirations appear nonlabored and symmetric. CARDIAC: Physical cardiopulmonary examination was otherwise not performed due to concern for COVID-19 and for conservation of PPE. LABORATORY DATA: All reviewed. Hemoglobin is 9.7 creatine kinase elevated at a peak of 1003, has trended down to 717. Her CK-MB is elevated at 13.6. Her peak troponin I is 1.3. Chest x-ray shows pleural effusions. IMPRESSION: 1. Pleural effusion. 2. Acute on chronic kidney disease. 3. Hypertension. 4. Elevated cardiac enzymes. 5. Rhabdomyolysis. 6. Anemia. RECOMMENDATIONS: Agree with diuresis and continue Lasix intravenously. We will obtain a 2D echocardiogram. Her cardiac enzymes are likely elevated due to rhabdomyolysis rather than a true myocardial infarction. Type 2 AL is suspected. She has no ongoing chest pain or ischemic features. The patient likely will need an ischemic evaluation in the form of a stress test once her respiratory status has improved. This likely can be done as an outpatient as well. If she progresses quickly. Scott Meng DO BM/MODL /[id number]
--- NOTE | 2019-08-23 17:20 | Consultation ---
DATE OF CONSULTATION: REASON FOR CONSULTATION: Shortness of breath. HISTORY OF PRESENT ILLNESS: This patient who is a 69-year-old female noncompliant with her medical care, hypertension, diabetes mellitus, chronic kidney disease, stage 4, her social work administrator is Dr. Castro, comes into the emergency room with shortness of breath and not feeling well. The patient denies any travel, denies any fever, but she came in the period when we have an epidemic of COVID-19. So, the patient is being admitted. The patient was short of breath. She does have history of hypothyroidism, hypertension, and vitamin D deficiency. In addition to the above, she also has peripheral neuropathy, noncompliance. PAST SURGICAL HISTORY: As above. FAMILY HISTORY: Diabetes mellitus and hypertension. REVIEW OF SYSTEMS: Mainly shortness of breath. Her chest x-ray, which was done showed bilateral large pleural effusion with atelectasis. The patient as mentioned above noncompliant with her dialysis. PHYSICAL EXAMINATION: GENERAL: She is currently alert, oriented. VITAL SIGNS: Since admission, there is no fever. HEENT: She is not icteric. NECK: Supple. CHEST: Few crackles bilateral. HEART: S1, S2. No murmurs. ABDOMEN: Soft. Bowel sounds present. EXTREMITIES: No edema. SKIN: No rash. IMPRESSION: 1. Acute shortness of breath. I think it is due to pulmonary edema with fluid overload. The patient did not get her dialysis for a few days. 2. Chronic kidney disease. 3. Hypertension. 4. Non-ST elevation myocardial infarction. 5. Rhabdomyolysis. 6. Anemia. IMPRESSION AND PLAN: Her presentation is not consistent with COVID-19 at the present time. I think we will agree with dialysis and reassess the patient. We will keep her on droplet isolation in the meantime. We will follow. MD STERLING Love/MODL /[id number]
--- NOTE | 2019-08-23 17:45 | Consultation ---
DATE OF CONSULTATION: 08/23/2019 Pulmonary Medicine Consult REFERRING PHYSICIAN: Dr. Ureña. PRIMARY CARE DOCTOR: Dr. Roberto Carlos Peter. REASON FOR REFERRAL: Abnormal chest radiography. HISTORY OF PRESENT ILLNESS: Ms. Ivan is a pleasant 69-year-old female with abnormal chest radiography. The patient presented to [facility] on August 21. The patient upon presentation had complaints of shortness of breath. Onset for 2 weeks and was gradual in onset. Pattern worsening, therefore she came to emergency room. In the emergency room, it was noted the patient had a chest x-ray with some moderate bilateral effusion, left greater than right, and CHF versus pneumonia pattern. The patient with elevated cardiac biomarkers and acute kidney failure with creatinine 4.69. The patient was initially recommended for assessment due to multiorgan dysfunction associated with pandemic COVID in the community. She was admitted. No history of asthma. No allergies. No GERD. PAST MEDICAL HISTORY: CKD stage 4, hypertension, hypothyroidism, peripheral neuropathy, thyroid disorder. MEDICATIONS: Medication list reviewed per the chart record. ALLERGIES: IODINE AND LORAZEPAM. SOCIAL HISTORY: No smoking. No new drinking. No drugs now. The patient smokes one-quarter pack per day from age [age]. 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 REVIEW OF SYSTEMS: GENERAL: No weight changes. OPHTHALMOLOGIC: No floaters. ENT: No mouth bleeding. ENDOCRINE: No known adrenal disease. PULMONARY: No hemoptysis. CARDIAC: No heart attack. ABDOMEN: GI without constipation. : No blood in urine. NEUROLOGIC: There is no mental delay. PSYCHIATRIC: No depression. IMMUNOLOGIC: No lupus. OBJECTIVE: VITAL SIGNS: Afebrile, vital signs noted reviewed per the chart record. GENERAL: In no acute distress, alert, calm in bed, now she states she feels better. HEENT: Normocephalic, atraumatic. NECK: Supple. Throat midline. LUNGS: Bilateral air entry, decreased at bases, no wheezes. CARDIOVASCULAR: S1, S2. No murmurs, rubs, or gallops. ABDOMEN: Soft, nontender. EXTREMITIES: No clubbing, no cyanosis. There is 1+ leg edema. INTEGUMENT: No rash. No purpura. LABORATORY DATA: 5.6 potassium, 45 BUN, 4.7 creatinine. 7 white count, 31 hematocrit, 339,000 platelets. BNP 2600. IMPRESSION AND PLAN: 1. Abnormal chest radiography, most likely fluid overload. 2. Abnormal chest radiography, treated pneumonia. 3. COVID pandemic status, environmental exposures. 4. Former smoker, cumulative full 9 pack years. 5. Acute on chronic kidney failure. 6. Hyperkalemia. 7. Thyroid abnormality. 8. Hypertension. 9. Peripheral neuropathy. At this time, continue current treatment. Check ultrasound to assess the pleural effusions and consider thoracentesis. 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 Low threshold for antibiotics as pneumonia cannot be ruled out although the patient did not have too many symptoms. We will follow up closely. Thank you very much, Dr. Ureña, for this consult. Please call for questions. MD NANCY Menendez/MODL /[id number]
--- NOTE | 2019-08-23 20:25 | Consultation ---
DATE OF CONSULTATION: 08/23/2019 Nephrology Consultation REASON FOR CONSULTATION: Innlf-we-niohyal kidney injury. HISTORY OF PRESENT ILLNESS: The patient is a pleasant female with history of diabetes mellitus, hypertension, and chronic kidney disease stage 3 to 4, was admitted yesterday in the pulmonary edema associated with progressive shortness of breath. She has since been diuresed with IV Lasix and feels much better today. She denies having fever or cough, nausea, vomiting, diarrhea, abdominal or flank pain, dysuria, or gross hematuria. Her serum creatinine was 4.58 on admission with potassium of 5, which is up to 5.6 today, however, she feels much better following the diuresis. PAST MEDICAL HISTORY: Hypothyroidism, peripheral neuropathy, and medical noncompliance. MEDICATIONS: At home, included levothyroxine, nifedipine, gabapentin, Lasix 80 mg in the morning and 40 in the evening, vitamin D3, and aspirin. FAMILY HISTORY: Positive for hypertension and diabetes. SOCIAL HISTORY: No drugs or alcohol. She does not smoke. REVIEW OF SYSTEMS: Negative, except as noted above in HPI. PHYSICAL EXAMINATION: GENERAL: The patient is sitting up in bed, in no acute distress. VITAL SIGNS: Stable. Blood pressure 145/82, pulse 92 per minute, temperature 98.3 maximum, and oxygen saturation 100% on nasal cannula oxygen. SKIN: No generalized lesions noted. HEENT: Normocephalic, atraumatic head. External ocular movements intact. No icterus. NECK: Supple, without jugular venous distention. CHEST: She has bilateral air entry. No wheezing heard. CARDIOVASCULAR: Regular rate and rhythm. ABDOMEN: Nondistended. EXTREMITIES: Without pitting edema or cyanosis. NEUROLOGIC: Alert and oriented x3. No obvious focal deficits. IMAGING DATA: Chest x-ray, she had bilateral pleural effusions yesterday, which have decreased today. LABORATORY DATA: Most recent blood tests show creatinine of 4.6, BUN 45, bicarb 19, potassium 5.6, sodium 137, glucose 153, and total calcium 9. Troponin up from 0.9 yesterday to 1.39 today. Creatine kinase and MB, CK2 also elevated. Beta-natriuretic peptide on admission was 2679. CBC showed hemoglobin of 9.7, normal white count and platelets. Urinalysis previously have shown at least 2+ proteinuria. IMPRESSION: 1. Probable acute kidney injury associated with cardiorenal decompensation manifesting in pulmonary edema. Responding to IV Lasix in large dose. 2. Chronic underlying kidney disease, probably stage 4. Her serum creatinine was 2.38 in April 2018. 3. Hypertension, controlled, on no blood pressure medicine at this time. 4. Anemia secondary to chronic kidney disease. 5. Hyperkalemia, secondary to decreased GFR. RECOMMENDATIONS: 1. Continue IV Lasix twice a day to maintain diuresis as that would also help with the hyperkalemia. 2. Monitor daily renal function and electrolytes. 3. Quantify urine protein. 4. Monitor blood pressure without medications. 5. May use Kayexalate p.r.n. for hyperkalemia spikes. 6. Avoid all known nephrotoxins such as NSAIDs, aminoglycoside antibiotics, and IV iodinated contrast as possible. We will follow the patient in the hospital. Thank you for this consultation. MD ELMER Wong/MARTINEL /[id number]
[2019-08-23 22:51] LABS: INFLUENZAE A&B ANTIGEN (RAPID) NEGATIVE (NEGATIVE); STREPTOCOCCUS GRP A ANTIGEN NEGATIVE (NEGATIVE)
[2019-08-24] VITALS (7 sets, daily range): BP systolic 109–144; BP diastolic 72–94
[2019-08-24] MEDS: HEPARIN 25,000 UNIT 900 UNIT in DEXTROSE 5% 250ML 250 ML IV SCH (02:44)
--- NOTE | 2019-08-24 05:38 | Diagnostic Imaging Report ---
EXAMINATION: CHEST SINGLE (PORTABLE) COMPARISON: Chest x-ray 08/23/2019 INDICATION: CHF ^chf ^[id number] ^0445 DISCUSSION: Frontal view of the chest obtained at 0437 hours. HEART AND MEDIASTINUM: Stable cardiomegaly. LINES: None. LUNGS/PLEURA: Small right and moderate left pleural effusion is redemonstrated with adjacent atelectasis. No interstitial edema. BONES AND SOFT TISSUES: No focal osseous lesion. The soft tissues are normal. IMPRESSION: Stable cardiomegaly. No CHF. Stable pleural effusions and atelectasis. Signed by: Dr. Minh Laguerre MD on 08/24/2019 5:34 AM
[2019-08-24 05:49] LABS: BASOPHILS # (AUTO) 0.1 (0.0-0.1); BASOPHILS % 0.6 % (0.0-1.0); EOSINOPHILS # (AUTO) 0.2 (0.0-0.4); EOSINOPHILS % 2.1 % (0.0-6.0); HEMATOCRIT 28.1 % (34.2-44.1); HEMOGLOBIN 9.3 g/dL (12.0-16.0); LYMPHOCYTES # (AUTO) 2.6 (1.0-3.2); LYMPHOCYTES % 24.9 % (18.0-39.1); MEAN CORPUSCULAR HGB CONC 33.1 g/dL (31-35); MEAN CORPUSCULAR VOLUME 90.6 fL (81-99); MONOCYTES # (AUTO) 0.8 (0.2-0.8); NEUTROPHILS # (AUTO) 6.7 (2.1-6.9); PLATELET COUNT 338 x10e3/uL (140-360); RED CELL DISTRIBUTION WIDTH 13.2 % (11.7-14.4)
[2019-08-24 06:11] LABS: ANION GAP 14.2 mmol/L (8-16); CALCIUM 8.3 mg/dL (8.4-10.2); CREATININE, SERUM 4.77 mg/dL (0.57-1.11); POTASSIUM 4.2 mmol/L (3.5-5.1)
--- NOTE | 2019-08-24 06:50 | NUR ---
RECEIVED PT ON BEDSIDE ROUNDS. NO COMPLAINTS VOICED AND NO SIGNS OF ANY DISTRESS.
--- NOTE | 2019-08-24 08:00 | NUR ---
SHIFT ASSESS COMPLETED. AM CARE BEING DONE.
[2019-08-24] MEDS: LEVOTHYROXINE SODIUM 112 MCG TAB PO SCH (09:00)
[2019-08-24] MEDS: FUROSEMIDE INJ 10 MG/ML 4 ML VIAL IV SCH (09:00)
[2019-08-24] MEDS: ASPIRIN 81 MG ENTERIC COATED PO SCH (09:00)
--- NOTE | 2019-08-24 11:25 | NUR ---
PT CAME TO SEE pt BUT WAITING FOR PENDING RESULTS BEFORE AMBULATING
--- NOTE | 2019-08-24 12:18 | NUR ---
DR. MONTES TO SEE PT. US BEING DONE NOW
--- NOTE | 2019-08-24 13:35 | NUR ---
Pulmonary Medicine DATE 08/24/2019 SUBJECTIVE: CXR with left effusion moderate, smaller right effusion No excess dyspnea at rest ate some no fevers REVIEW OF SYSTEMS: no chest pain, no rash OBJECTIVE: VITAL SIGNS: vital signs noted reviewed per the chart record. GENERAL: no acute distress, alert, calm in bed, states she feels better. HEENT: Normocephalic, atraumatic. NECK: Supple. Throat midline. LUNGS: Bilateral air entry, decreased at bases CARDIOVASCULAR: S1, S2. No murmurs, rubs, or gallops. ABDOMEN: Soft, nontender. EXTREMITIES: No clubbing, no cyanosis. 1+ leg edema. INTEGUMENT: No rash. No purpura. LABORATORY DATA: k 4.2, c02 20, cr 4.77. wbc 10.5, hct 28, plt 338 IMPRESSION AND PLAN: 1. Abnormal chest radiography, most likely fluid overload. 2. Abnormal chest radiography, less likely pneumonia. 3. COVID pandemic status, environmental exposures. 4. Former smoker, cumulative full 9 pack years. 5. Acute on chronic kidney failure. stage IV - V 6. Hyperkalemia. 7. Thyroid abnormality. 8. Hypertension. 9. Peripheral neuropathy. US chest today Consider thoracentesis. 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 Reportedly the patient is deferring HD start up for now. Follow up Thank you very much, Dr. Ureña, for this consult. Please call for questions.
--- NOTE | 2019-08-24 13:45 | NUR ---
DR CAMPOS TO SEE PT.
--- NOTE | 2019-08-24 14:10 | NUR ---
DR FUENTES TO SEE PT PLAN TO DISCHARGE PT
--- NOTE | 2019-08-24 14:12 | Progress Note ---
DATE: 08/24/2019 Nephrology Progress Note SUBJECTIVE: The patient is being followed for acute on chronic kidney disease stage 3 to 4. Denies any shortness of breath, nausea, or other uremic symptoms today. OBJECTIVE: GENERAL: The patient is sitting up in bed, awaiting to go home, comfortable. VITAL SIGNS: Stable. Blood pressure 139/86, respirations 20 per minute, she is afebrile. Pulse oximetry 98% on room air. NECK: Supple without jugular venous distention. No thyroid mass. RESPIRATORY: Symmetrical breathing (not auscultated due to pending COVID status). ABDOMEN: Nondistended. CARDIOVASCULAR: Regular rate and rhythm. EXTREMITIES: Without pitting edema or cyanosis. NEUROLOGICAL: Alert and oriented x3. No obvious focal deficits. Chest x-ray reports smaller right and moderate left pleural effusion. LABORATORY DATA: CBC stable. Electrolytes show normal potassium today at 4.2, bicarb 20, BUN 59, creatinine 4.7, EGFR 9 mL/minute. Glucose 89, calcium 8.3. Urine protein to creatinine ratio not done. IMPRESSION: 1. Probable acute kidney injury secondary to cardiorenal. Clinically, symptoms of dyspnea and pulmonary edema have resolved with aggressive intravenous loop diuretics. 2. Chronic kidney disease, probable stage IV secondary to diabetes mellitus and hypertension. 3. Hypertension, well controlled. 4. Anemia secondary to chronic kidney disease. 5. Metabolic acidosis, secondary to above. 6. Hyperkalemia, which has improved with aggressive diuresis. RECOMMENDATION: Since patient is going home today, I will change her Lasix to p.o. 80 mg twice a day. She has been advised to follow up with me in the office in a week's time with the results of a BMP. I did advise her that although she does not have any uremic symptoms now, but given her renal function, she may develop uremic symptoms at any time in the near future. She must avoid all NSAIDs, IV iodine contrast, etc. Lucho Bae MD [facility]/MODL /[id number]
--- NOTE | 2019-08-24 15:07 | Diagnostic Imaging Report ---
Chest ultrasound. History: Pleural effusion. Comparison: Chest x-ray from today. Discussion: Transverse and longitudinal sonographic imaging of the bilateral posterior chest was performed. Bilateral moderate pleural effusions are identified. IMPRESSION: Bilateral moderate pleural effusions. Signed by: Alen Barry on 08/24/2019 3:04 PM
--- NOTE | 2019-08-24 15:37 | Progress Note ---
DATE: SUBJECTIVE: Ms. Ivan is feeling much better. Her breathing is better, no new complaints. REVIEW OF SYSTEMS: At present time, HEENT: Negative. PULMONARY: Negative. CARDIAC: Negative. PHYSICAL EXAMINATION: GENERAL: She is currently alert, oriented, does not seem to be in acute distress. VITAL SIGNS: Stable, afebrile. She is not icteric. NECK: Supple. CHEST: Clear bilateral, few crackles at the bases. HEART: S1, S2, no murmur. ABDOMEN: Soft. Bowel sounds present. EXTREMITIES: No edema. SKIN: No rash. IMPRESSION: 1. Fluid overload, stable from Infectious Disease point of view, could be discharged home with Lasix. 2. Anemia of chronic disease. 3. Follow up with me in 3 weeks. Discussed with the medical team. MD STERLING Love/NORBERTO /[id number]
[2019-08-24] MEDS: FUROSEMIDE 40 MG TAB PO SCH (17:40)
--- NOTE | 2019-08-24 18:41 | NUR ---
NO CHANGES AT THIS TIME IN PT STATUS.
--- NOTE | 2019-08-24 19:00 | NUR ---
Bedside repost and round completed with off going nurse. Patient in bed with no issues or concerns noted, call light within reach, bed locked and in lowest position. Will continue to monitor.
--- NOTE | 2019-08-24 21:33 | Progress Note ---
DATE: 08/24/2019 SUBJECTIVE: The patient reports feeling much better today with no complaints. No overnight events. PHYSICAL EXAMINATION: VITAL SIGNS: Temperature is 98.4, pulse is 85, respiratory rate is 20, blood pressure 125/75, and pulse ox 98% on room air. GENERAL: Not in acute distress. Alert and oriented x3. Cooperative on examination. HEENT: Head; normocephalic, atraumatic. Eyes; pupils are equal, round, and reactive to light bilaterally. Extraocular movements intact bilaterally. Throat; no evidence of erythema or exudates in the posterior pharynx. Has poor dentition. NECK: Supple. Good range of motion. PULMONARY: Clear to auscultation bilaterally. No wheezing, no rales, no rhonchi, no crackles appreciated. CARDIOVASCULAR: Positive S1 and S2. No murmurs, rubs, or gallops appreciated. ABDOMEN: Soft, nondistended, and nontender to palpation. Bowel sounds present. MUSCULOSKELETAL: Strength is 5/5 throughout. No evidence of any muscle deficits on examination. No weakness appreciated. NEUROLOGIC: Cranial nerve II through XII are grossly intact. No evidence of any neurological deficits on exam. SKIN: Intact. Warm to touch. Good cap refill. PSYCHIATRIC: Normal affect and mood. EXTREMITIES: No edema. Good range of motion throughout. LABORATORY FINDINGS: Show white count 10.5, hemoglobin 9.3, hematocrit is 28.1, platelets of 338. Chemistry reviewed shows sodium 137, potassium 4.2, chloride 107, bicarb 20, anion gap of 14, BUN 59, creatinine 4.7, calcium is 8.3. CK down trended to 504. Arcos virus PCR is pending. Flu negative. Group A strep negative. MICROBIOLOGY: Throat cultures were all negative. IMAGING STUDIES: Chest x-ray this morning showed stable pleural effusions and atelectasis. Chest ultrasound shows bilateral moderate pleural effusion. IMPRESSION: 1. Acute respiratory distress secondary to pulmonary edema, pleural effusions. 2. Chronic kidney disease, stage 5 secondary to hypertension. 3. Uncontrolled hypertension. 4. Tnb-AI-fckzxjhmu myocardial infarction likely type 2 myocardial infarction. 5. Rhabdomyolysis. 6. Anemia. PLAN: In terms of her respiratory status, she is at baseline now on room air. She is breathing well. Continue with diuretics. Nephrology cleared the patient for discharge on oral diuretics. Pulmonary ordered a thoracentesis and this will occur later today. She can be discharged likely tomorrow. As for her dialysis, she refuses at this time. V/Q scan was found to be negative. Blood pressure is better controlled. As per Cardiology, they felt this is likely to be a type 2 AK and they can follow up as an outpatient for a stress test at a later date. Her CK is down trending. Get a.m. labs. The patient has been cleared for discharge by Renal, Pulmonary, and Cardiology. Plan to discharge home tomorrow. MD ESTER Guerra/MODL /[id number]
[2019-08-25] VITALS (10 sets, daily range): BP systolic 125–152; BP diastolic 70–86
[2019-08-25 05:33] LABS: BASOPHILS % 0.5 % (0.0-1.0); EOSINOPHILS # (AUTO) 0.4 (0.0-0.4); EOSINOPHILS % 5.5 % (0.0-6.0); HEMATOCRIT 28.7 % (34.2-44.1); HEMOGLOBIN 9.2 g/dL (12.0-16.0); LYMPHOCYTES # (AUTO) 2.2 (1.0-3.2); LYMPHOCYTES % 30.2 % (18.0-39.1); MEAN CORPUSCULAR HEMOGLOBIN 29.2 pg (28-32); MEAN CORPUSCULAR HGB CONC 32.1 g/dL (31-35); MEAN CORPUSCULAR VOLUME 91.1 fL (81-99); MONOCYTES # (AUTO) 0.6 (0.2-0.8); MONOCYTES % 8.5 % (4.4-11.3); NEUTROPHILS % 54.9 % (38.7-80.0); PLATELET COUNT 297 x10e3/uL (140-360); RED BLOOD COUNT 3.15 x10e6/uL (3.6-5.1); RED CELL DISTRIBUTION WIDTH 13.1 % (11.7-14.4)
[2019-08-25 05:54] LABS: CALCIUM 7.9 mg/dL (8.4-10.2); CREATININE, SERUM 4.91 mg/dL (0.57-1.11)
[2019-08-25] MEDS ORDERED: LEVOTHYROXINE SODIUM 112 MCG TAB PO SCH (06:00)
--- NOTE | 2019-08-25 06:55 | NUR ---
Bedside repost and round completed with on coming nurse. Patient in bed with no issues or concerns noted, call light within reach, bed locked and in lowest position. Will continue to monitor.
--- NOTE | 2019-08-25 07:00 | NUR ---
bedside shift report received pt in stable condition, denies pain at this time, r wrist 22g no ss of infiltration noted, r ac 20g, updated on poc voiced understanding, call light in reach will continue to monitor
[2019-08-25] MEDS: FUROSEMIDE 40 MG TAB PO SCH (09:00)
--- NOTE | 2019-08-25 12:00 | NUR ---
bedside r thoracentesis performed by Dr. Peng from radiology 1200cc of serious fluid removed pt tolerated well, dsg applied to r posterior back, vs stable 140/80, 88,99%, 23 resp, 98.0 temp, denies pain, instructed pt to stay on back for pressure to dsg, voiced understanding, call light in reach will continue to monitor
--- NOTE | 2019-08-25 12:37 | NUR ---
Pulmonary Medicine DATE 08/25/2019 SUBJECTIVE: stable breathing US proved significant pleural effusion RA fio2 eating well REVIEW OF SYSTEMS: no chest pain, no rash OBJECTIVE: VITAL SIGNS: vital signs noted reviewed per the chart record. GENERAL: no acute distress, alert, calm in bed, states she feels better. HEENT: Normocephalic, atraumatic. NECK: Supple. Throat midline. LUNGS: Bilateral air entry, decreased at bases CARDIOVASCULAR: S1, S2. No murmurs, rubs, or gallops. ABDOMEN: Soft, nontender. EXTREMITIES: No clubbing, no cyanosis. 1+ leg edema. INTEGUMENT: No rash. No purpura. LABORATORY DATA: per EMR cr 4.91 IMPRESSION AND PLAN: 1. Abnormal chest radiography, fluid overload. Symptomatic pleural effusions. 2. Abnormal chest radiography, less likely pneumonia. 3. COVID pandemic status, environmental exposures. 4. Former smoker, cumulative full 9 pack years. 5. Acute on chronic kidney failure. stage IV - V 6. Hyperkalemia. 7. Thyroid abnormality. 8. Hypertension. 9. Peripheral neuropathy. US thoracentesis today Patient can possibly go home after thoracentesis Diuretics as per staff forester. Reportedly the patient is deferring HD start up for now. Follow up Thank you very much, Dr. Ureña, for this consult. Please call for questions.
--- NOTE | 2019-08-25 14:15 | Diagnostic Imaging Report ---
PROCEDURE: Ultrasound-guided thoracentesis Procedural Personnel Attending physician(s): Mayelin Peng MD Fellow physician(s): None Resident physician(s): None Advanced practice provider(s): None Pre-procedure diagnosis: Pleural effusion Post-procedure diagnosis: Same Indication: Right pleural effusion Additional clinical history: None Complications: No immediate complications. IMPRESSION: Ultrasound-guided thoracentesis with drainage of 1200 mL of serous fluid. Plan: Resume care by clinical team. PROCEDURE SUMMARY: - Limited thoracic ultrasound - Ultrasound-guided thoracentesis - Additional procedure(s): None PROCEDURE DETAILS: Pre-procedure Consent: Informed consent for the procedure including risks, benefits and alternatives was obtained and time-out was performed prior to the procedure. Preparation: The site was prepared and draped using maximal sterile barrier technique including cutaneous antisepsis. Anesthesia/sedation Level of anesthesia/sedation: No sedation Anesthesia/sedation administered by: Not applicable Total intra-service sedation time (minutes): N.A Limited thoracic ultrasound Limited thoracic ultrasound was performed using a curved transducer. A safe window for thoracentesis was identified. Left hemithorax findings: Not investigated Right hemithorax findings: Moderate pleural effusion Thoracentesis Local anesthesia was administered. The pleural space was accessed under real-time ultrasound guidance and fluid return confirmed position. The fluid was drained. The catheter was removed, and a sterile bandage was applied. Catheter placed: 5F Delfina Post-drainage hemithorax findings: No visible pleural effusion Additional Details Additional description of procedure: None Equipment details: None Specimens removed: Pleural fluid Estimated blood loss (mL): Less than 10 Standardized report: [id number] Attestation Signer name: Mayelin Peng MD I attest that I was present for the entire procedure. I reviewed the stored images and agree with the report as written. Signed by: Mayelin Peng MD on 08/25/2019 2:11 PM
--- NOTE | 2019-08-25 14:36 | Diagnostic Imaging Report ---
TECHNIQUE: Frontal view of the chest. INDICATION: 69-year-old woman after right thoracentesis. COMPARISON: Chest radiograph 08/24/2019. FINDINGS: LINES/TUBES/DEVICES: None. LUNGS: Decreased atelectasis in the right lung base. Persistent mild airspace opacities in the left lung base, also likely atelectasis. PLEURA: Resolved right pleural effusion after thoracentesis. No significant change in the moderate left pleural effusion. No pneumothorax. HEART AND MEDIASTINUM: The cardiomediastinal silhouette is unchanged. Atherosclerotic calcifications in the thoracic aorta. SOFT TISSUES AND BONES: No acute osseous abnormalities. Soft tissues are unremarkable. IMPRESSION: Resolved right pleural effusion after thoracentesis. No pneumothorax. Improved atelectasis in the right lung base. Otherwise, no significant change since 08/24/2019. Signed by: Olman Christian MD on 08/25/2019 2:32 PM
[2019-08-25 15:14] LABS: BODY FLUID APPEARANCE SL.CLOUDY; BODY FLUID COLOR STRAW; BODY FLUID TYPE PLEURAL
--- NOTE | 2019-08-25 15:16 | NUR ---
SPOKE WITH DR FUENTES RE: CHEST XRAY REPORT, OK TO DC PT HOME.
[2019-08-25 15:18] LABS: RBC,BODY FLUID 454 cells/uL; WBC,BODY FLUID 29 cells/uL
[2019-08-25 18:21] LABS: LYMPHOCYTES,BODY FLUID 46 %; MONO/MACROPHG,BODY FLUID 24 %; NEUTROPHILS,BODY FLUID 26 %; OTHER CELLS,BODY FLUID 4 %
--- NOTE | 2019-08-25 22:23 | Discharge Summary ---
FINAL DISCHARGE DIAGNOSES: 1. Acute respiratory distress secondary to pulmonary edema due to chronic kidney disease stage 5 and pleural effusion, status post thoracentesis. 2. Chronic kidney disease stage 5 secondary to hypertension. 3. Uncontrolled hypertension. 4. Cbp-QW-dwixfrirk myocardial infarction, found to be a type 2 myocardial infarction. No further workup needed. 5. Rhabdomyolysis-resolved. 6. Anemia. CONSULTANTS: Pulmonary, Nephrology, Cardiology, and Infectious Disease. VITAL SIGNS: Temperature is 98, pulse 82, respiratory rate 20, blood pressure 125/70, pulse ox 99% on room air. LABORATORY FINDINGS: Show white count 7.3, hemoglobin 9.2, hematocrit 28.7, and platelets of 297. Chemistry; sodium 138, potassium 4, chloride 107, bicarb 21, anion gap of 14, BUN is 63, creatinine is 4.9, glucose 83, calcium is 7.9. LFTs within normal range. Troponins were elevated, but secondary to rhabdomyolysis. CK down trended to 504. Albumin was 2.7. Pleural fluid seems to be negative. Coronavirus PCR was pending, in which the patient was educated on self quarantine and then the hospital will her with the final results. Flu was negative. Group A Strep was negative. MICROBIOLOGY: Throat culture is negative. Body fluid cultures, no organisms seen. IMAGING STUDIES: V/Q scan shows very low probability of acute pulmonary embolic disease. Chest x-ray on admission, bilateral large pleural effusion noted. Chest ultrasound shows pleural effusion. The patient underwent thoracentesis ultrasound on 08/25/2019, with 1.2 L of serous fluid removed. Chest x-ray on 08/25/2019, shows resolved right pleural effusion after thoracentesis. No pneumothorax appreciated. HOSPITAL COURSE: This is a 69-year-old female, who came into the ED with worsening shortness of breath, cough, and questionable subjective fever at home. The patient was admitted and coronavirus PCR was ordered. The patient was admitted on the IMCU. Infectious Disease was consulted. Coronavirus PCR was pending. It was felt likely that the underlying shortness of breath is from her pulmonary edema. Coronavirus PCR was pending and she was advised to be discharged by ID, in which the hospital will call her for the results if they are negative or positive. The patient is very low yield to have positive coronavirus PCR due to her current symptoms and currently doing much better, but the hospital will call her back. No further workup needed by Id. As for her shortness of breath and pulmonary edema, Pulmonary, Cardiology, and Nephrology were consulted. While here, the patient was on high doses of IV diuretics. She was converted to oral diuretics for discharge. Nephrology evaluated her. The patient refused hemodialysis, in which at this time agreed to conservative treatment. The patient was discharged on Lasix 80 mg p.o. b.i.d. per Renal recommendations and was discharged to home. Her V/Q scan was found to be negative. Pulmonary was consulted, and the patient underwent thoracentesis with 1.2 L removed. Chest x-ray post thoracentesis showed no evidence of pneumothorax with resolution of the effusion. Cardiology was consulted due to elevation of troponin, but it was felt to be a type 2 SD due to underlying rhabdomyolysis. Her CK levels improved tremendously. Cardiology cleared the patient and needs an outpatient stress test in the next 1 to 2 weeks in his office. No further cardiac workup needed in the hospital stay. The patient was cleared for discharge by all consultants. On the day of discharge, vital signs were stable. Labs reviewed and stable. The patient is seen and evaluated and examined thoroughly on the day of discharge with no other complaints. The patient verbalized understanding and agreed to plan of care to follow up accordingly as an outpatient with primary care physician in 1 week, Nephrology and Cardiology in 2 weeks' time. The patient will follow up with her PCP very closely. Hospital will call her about her coronavirus PCR, which is likely to be negative, but they will call her with the results. MEDICATIONS: See med reconciliation form. DISPOSITION: Home. CONDITION: Stable. DIET: Renal. In the event of any worsening symptoms, the patient was advised to come back to the ED for further evaluation. Discharge summary took greater than 35 minutes. MD ESTER Guerra/NORBERTO /[id number]
--- NOTE | 2019-08-27 14:56 | Progress Note ---
DATE: 08/25/2019 SUBJECTIVE: Ms. Ivan is feeling better. There are no new complaints. REVIEW OF SYSTEMS: HEENT: Negative. PULMONARY: She is feeling better. PHYSICAL EXAMINATION: GENERAL: She is currently alert and oriented. Does not seem to be in acute distress. VITAL SIGNS: Stable, currently afebrile. HEENT: Not icteric. NECK: Supple. CHEST: Few crackles at the bases. COR: S1 and S2. No S3, S4, or murmur. ABDOMEN: Soft. Bowel sounds present. No tenderness. EXTREMITIES: No edema. IMPRESSION: 1. Respiratory failure due to pulmonary edema. 2. Pleural effusion, probably transudative. 3. Chronic kidney disease, stage 5. 4. Fqt-PJ-noyugkpvu myocardial infarction. 5. Anemia. Discussed with Pulmonary. Thoracocentesis ordered to relieve the burden from her lungs. From Infectious Disease point of view, the plan is to be discharged home and follow up with outpatient. MD STERLING Love/NORBERTO /[id number]
== END 2019-08-25 16:28 | disposition home or self-care (01) | DRG 280 ==
LOC: ER 15:20 → ERHOLD 17:57 → IMCU 22:42
PROVIDERS: ADMIT Internal Medicine; ATTEND Internal Medicine
PROC: 0W9930Z Drainage of Right Pleural Cavity with Drainage Device, Percutaneous Approach (ICD-10-PCS; principal; 2019-08-25)
DX: I21.A1 Myocardial infarction type 2 (principal); J12.89 Other viral pneumonia; M62.82 Rhabdomyolysis; J81.1 Chronic pulmonary edema; J90 Pleural effusion, not elsewhere classified; I12.0 Hypertensive chronic kidney disease with stage 5 chronic kidney disease or end stage renal disease; N18.4 Chronic kidney disease, stage 4 (severe); N17.9 Acute kidney failure, unspecified; E87.2 Acidosis; R06.03 Acute respiratory distress; E03.9 Hypothyroidism, unspecified; Z90.49 Acquired absence of other specified parts of digestive tract; Z83.3 Family history of diabetes mellitus; Z82.49 Family history of ischemic heart disease and other diseases of the circulatory system; Z91.19 Patient's noncompliance with other medical treatment and regimen; E11.42 Type 2 diabetes mellitus with diabetic polyneuropathy; Z87.891 Personal history of nicotine dependence; E87.5 Hyperkalemia; D63.1 Anemia in chronic kidney disease; Z88.8 Allergy status to other drugs, medicaments and biological substances; Z91.041 Radiographic dye allergy status; Z79.82 Long term (current) use of aspirin; Z79.84 Long term (current) use of oral hypoglycemic drugs
CPT/HCPCS: 32555; 36415; 71045; 76604; 78582; 80048; 80053; 82550; 82553; 82728; 82945; 82948; 83518; 83615; 83880; 84157; 84484; 85025; 85379; 85610; 85730; 87070; 87205; 87400; 87635; 88112; 88305; 89051; 93005; 96361; 97139; 99284; J1100; J1200; J1644; J1940; J7030

== ENCOUNTER 2019-09-12 12:47 | Inpatient (IN) | payer MEDICARE, OTHER ==
[~2019-09-12] VITALS: Ht 142.2 cm; Wt 72.4 kg
[~2019-09-12 12:47] MED LIST changes: +LASIX20 MG PO
[2019-09-12 13:29] LABS: BASOPHILS % 0.4 % (0.0-1.0); EOSINOPHILS # (AUTO) 0.2 (0.0-0.4); EOSINOPHILS % 2.5 % (0.0-6.0); HEMATOCRIT 28.2 % (34.2-44.1); HEMOGLOBIN 9.2 g/dL (12.0-16.0); LYMPHOCYTES # (AUTO) 1.2 (1.0-3.2); LYMPHOCYTES % 17.8 % (18.0-39.1); MEAN CORPUSCULAR HEMOGLOBIN 29.4 pg (28-32); MEAN CORPUSCULAR HGB CONC 32.6 g/dL (31-35); MEAN CORPUSCULAR VOLUME 90.1 fL (81-99); MONOCYTES # (AUTO) 0.5 (0.2-0.8); MONOCYTES % 7.7 % (4.4-11.3); NEUTROPHILS # (AUTO) 4.8 (2.1-6.9); NEUTROPHILS % 71.2 % (38.7-80.0); PLATELET COUNT 376 x10e3/uL (140-360); RED BLOOD COUNT 3.13 x10e6/uL (3.6-5.1); RED CELL DISTRIBUTION WIDTH 12.5 % (11.7-14.4)
[2019-09-12 13:50] LABS: ALBUMIN 2.8 g/dL (3.5-5.0); ALBUMIN/GLOBULIN RATIO 0.7 (0.8-2.0); CALCIUM 8.9 mg/dL (8.4-10.2); CREATININE, SERUM 5.47 mg/dL (0.57-1.11); MAGNESIUM 1.8 MG/DL (1.3-2.1)
[2019-09-12 13:51] LABS: INR 1.1; PROTHROMBIN TIME 14.9 seconds (11.9-14.5)
[2019-09-12 13:52] LABS: PARTIAL THROMBOPLASTIN TIME 43.7 seconds (23.8-35.5)
[2019-09-12 13:54] LABS: B-TYPE NATRIURETIC PEPTIDE2 2759.6 pg/mL (0-100)
[2019-09-12 13:56] LABS: CREATINE KINASE MB 4.9 ng/mL (0-5.0)
--- NOTE | 2019-09-12 15:12 | Diagnostic Imaging Report ---
EXAMINATION: CHEST SINGLE (PORTABLE) COMPARISON: Chest x-ray 08/25/2019 INDICATION: Shortness of breath, pneumonia ^SOB ^[id number] ^1420 DISCUSSION: Frontal view of the chest obtained at 1431 hours. HEART AND MEDIASTINUM: Stable cardiomegaly. LINES: None. LUNGS/PLEURA: Diffuse hyperinflation. Pulmonary vasculature is prominent. New right pleural effusion and atelectasis or infiltrate. Stable small left pleural effusion. No pneumothorax. BONES AND SOFT TISSUES: Calcified granuloma in the right humeral head is stable. The soft tissues are normal. IMPRESSION: 1. Cardiomegaly and pulmonary vascular congestion. 2. New right basilar airspace opacity, either atelectasis or pneumonia with small pleural effusion. 3. Stable chronic small left pleural effusion. Signed by: Dr. Minh Laguerre MD on 09/12/2019 3:08 PM
[2019-09-12 15:13] LABS: BILIRUBIN,URINE NEGATIVE (NEGATIVE); CLARITY,URINE HAZY (CLEAR); COLOR,URINE YELLOW (YELLOW); KETONES,URINE NEGATIVE (NEGATIVE); LEUKOCYTE ESTERASE ,URINE NEGATIVE (NEGATIVE); NITRITE,URINE NEGATIVE (NEGATIVE); PROTEIN,URINE DIPSTICK >=300 (NEGATIVE); URINE UROBILINOGEN 0.2 mg/dL (0.2 - 1)
[2019-09-12] MEDS ORDERED: FUROSEMIDE INJ 10 MG/ML 10 ML VIAL IV ONE (15:15)
[2019-09-12] MEDS ORDERED: DEXTROSE 50% SYRINGE 50 ML IV PRN (15:15)
[2019-09-12] MEDS ORDERED: ONDANSETRON HCL INJ 2MG/ML 2ML 2 MG/ML VIAL IV PRN (15:15)
[2019-09-12 15:16] LABS: RBC,URINE 0-5 /HPF (0-5); WBC,URINE (MAN) 0-5 /HPF (0-5)
[2019-09-12 15:17] LABS: BACTERIA,URINE FEW /HPF; EPITHELIAL CELLS,URINE FEW /LPF
[2019-09-12] MEDS ORDERED: FUROSEMIDE INJ 100 MG in SODIUM CHLORIDE 0.9% 90 ML IV ONE (16:00)
[2019-09-12] MEDS: INSULIN LISPRO 100 UNIT/1 ML 3ML VIAL SQ SCH ×2 (16:06→21:00)
[2019-09-12] MEDS ORDERED: HYDRALAZINE HCL 20 MG/ML VIAL IV PRN (17:30)
--- NOTE | 2019-09-12 17:56 | NUR ---
Recvd patient from ER . AAOx3, ON O2 2L NC, ON TELE, Denies any pain or SOB, Call light in reach, keep monitoring
[2019-09-12 18:07] VITALS: BP 143/88
--- NOTE | 2019-09-12 19:43 | Consultation ---
DATE OF CONSULTATION: 09/12/2019 Pulmonary Medicine Consult PRIMARY CARE DOCTOR: Dr. Roberto Carlos Peter. HISTORY OF PRESENT ILLNESS: Ms. Ivan is a pleasant 69-year-old female with shortness of breath. The patient with recent hospitalization in August 2019 with wtqav-hb-klosvby CKD and fluid overload. To treat her fluid overload, I had 1.2 L pleural effusion removed by thoracentesis as well as having a treatment course for pneumonia. The patient got better and went home and functioned well. However, we were seeing that the patient in last 2 days was having increasing shortness of breath. The patient came to emergency room for evaluation. This was after she had intermittent talks with her outpatient doctors on optimizing her illness that were insufficient. The patient at this point was sent to the hospital. The patient noted with creatinine 5.5. BNP 2759. Albumin 2.8. Chest x-ray with fluid overload and some oywt-sj-awyoqlia pleural effusions. PAST MEDICAL HISTORY: CKD stage 4 to 5, previously deferring dialysis considerations, hypertension, hypothyroidism, peripheral neuropathy, and thyroid disorder. MEDICATIONS: Medication list reviewed per the chart record. Include Lasix 80 mg twice a day orally. ALLERGIES: IODINE AND LORAZEPAM. SOCIAL HISTORY: No smoking, no drinking, no drugs now. The patient smokes one-quarter pack per day from age [age]. 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 FAMILY HISTORY: Noncontributory to this syndrome. REVIEW OF SYSTEMS: GENERAL: There is no weight loss. OPHTHALMOLOGIC: No glaucoma. ENDOCRINE: No recent thyroid dyscontrol known. PULMONARY: No asthma. IMMUNOLOGIC: No allergies. CARDIAC: No heart attack. GI: No constipation. : No bloody urine. NEUROLOGIC: No seizures. DERMATOLOGIC: No rash. PSYCHIATRIC: No depression. PHYSICAL EXAMINATION: VITAL SIGNS: Afebrile, vital signs noted, reviewed per the chart record. GENERAL: In no acute distress, alert and calm. HEENT: Normocephalic and atraumatic. NECK: Supple. Throat midline. LUNGS: Bilateral air entry, decreased breath sounds bilaterally, some rales. CARDIOVASCULAR: S1 and S2. No murmurs, rubs, or gallops. ABDOMEN: Soft and nontender. EXTREMITIES: No clubbing. No cyanosis. There is only trace edema. INTEGUMENT: No rash. No purpura. LABORATORY DATA: 4.0 potassium, 23 bicarbonate, 16 BUN, 5.5 creatinine. IMPRESSION AND PLAN: 1. Pulmonary edema. 2. Small bilateral pleural effusions. 3. Chronic kidney disease, stage 4-5. 4. Acute kidney injury. 5. Hypertension. 6. Hypothyroidism. 7. Peripheral neuropathy. 8. Thyroid disorder. Repeat a chest x-ray tomorrow. Lasix drip is started. If pleural effusion get better, we will just follow clinically. If pleural effusions worsen, we will consider ultrasound of chest and consider thoracentesis, especially the patient does not start dialysis. Dialysis considerations per Renal and I understand correctly the patient previously had deferred in preparation. Thank you very much, Dr. Ureña, for this consult. Please call for questions. MD NANCY Menendez/NORBERTO /[id number]
[2019-09-12 20:00] VITALS: BP 131/80
[2019-09-12] MEDS: HEPARIN SOD (PORCINE) 5,000 UNIT/ML VIAL SC SCH (21:00)
[2019-09-12] MEDS: GABAPENTIN 100 MG CAP PO SCH (21:00)
--- NOTE | 2019-09-12 21:53 | History and Physical ---
CHIEF COMPLAINT: Shortness of breath and pulmonary edema. HISTORY OF PRESENT ILLNESS: This is a 69-year-old female with known CKD stage 5, resistant to dialysis after several attempts and discussing this with her in prior admission and hypertension, comes into the ED with orthopnea and dyspnea on exertion. The patient reports that she was very compliant with her Lasix 80 mg p.o. b.i.d. at home. She reports drinking a little bit too much fluids, but denies any salt intake. She does endorse that she has been very short of breath over the last several days and came into the ED for further evaluation. She denies any chest pain or any palpitations. No nausea, no vomiting, no fever at home. No sick contacts. The patient was seen and evaluated at bedside on the medical floor. She is currently doing well with no other issues at this time. She is still very short of breath on nasal cannula. She was given Lasix 100 mg IV x1. She is not scheduled for Lasix 80 mg t.i.d. REVIEW OF SYSTEMS: Pertinent positives: Orthopnea, dyspnea on exertion. The rest of 14-point review of systems have been reviewed with the patient and are negative. ALLERGIES: TO IODINE AND LORAZEPAM. HOME MEDICATIONS: Aspirin, cholecalciferol, gabapentin, levothyroxine, and nifedipine. PAST MEDICAL HISTORY: CKD stage 5, refuses dialysis, vitamin D deficiency, and hypertension. PAST SURGICAL HISTORY: Reports none. FAMILY HISTORY: Hypertension and diabetes. SOCIAL HISTORY: No drugs, no alcohol, does not smoke. Good social support. PHYSICAL EXAMINATION: VITAL SIGNS: Temperature is 98.2, pulse is 80, respiratory rate is 18, blood pressure is 144/87, pulse ox 100% on 2 L nasal cannula. GENERAL: Not in acute distress. Alert and oriented x3. Cooperative on examination. HEENT: Head is normocephalic and atraumatic. Eyes; pupils are equal, round, and reactive to light bilaterally. Extraocular movements intact bilaterally. Throat; no evidence of erythema or exudates in the posterior pharynx. Has poor dentition. NECK: Supple. Good range of motion. PULMONARY: Clear to auscultation bilaterally. She does have positive rales and crackles on lung exam. CARDIOVASCULAR: Positive S1, S2. No murmurs, rubs, or gallops appreciated. ABDOMEN: Soft, nondistended, and nontender to palpation. Bowel sounds present. MUSCULOSKELETAL: Strength is 5/5 throughout. No evidence of any muscle deficits on examination No weakness appreciated. NEUROLOGIC: Cranial nerves II through XII grossly intact. No evidence of any neurological deficits on exam. SKIN: Intact. Warm to touch. Good cap refill. PSYCHIATRIC: Normal affect and mood. EXTREMITIES: No edema. Good range of motion. LABORATORY FINDINGS: Show white count 6.7, hemoglobin 9.2, hematocrit 28.2, platelet is 376. Coagulation; PT 14, INR 1.1, PTT 43.7. Chemistry; sodium 141, potassium 4, chloride 102, bicarb 23, anion gap of 20, BUN 68, creatinine 5.47, glucose is 123. Lactic acid was 2, neuxs-bs-fyqb glucose 157, calcium 8.9, magnesium 1.8. LFTs within normal range. Total bilirubin was 0.4, AST 18, ALT 12, alkaline phosphatase 98, CK 154. Her troponin slightly elevated at 0.309. BNP 2759, albumin 2.8. Urinalysis was 1+ glucose, 1+ blood, greater than 300 of protein, coronavirus PCR nondetected. MICROBIOLOGY: Blood and urine cultures are collected, unsure why that was even performed. IMAGING STUDIES: Chest x-ray shows cardiomegaly, pulmonary vascular congestion. New basilar airspace opacity either atelectasis noted. IMPRESSION: 1. Acute respiratory distress secondary to pulmonary edema. 2. Chronic kidney disease stage 5, refuses hemodialysis. 3. Anemia of chronic kidney disease. 4. Hypertension. PLAN: At this time, I am not sure why the patient had blood and urine cultures. The patient is asymptomatic. No fever and white count is normal. There is no indication at this time for IV antibiotic therapy. Her chest x-ray is consistent with pulmonary edema. Pulmonary and ID were consulted. Anyway, they will come and evaluate her. She has been given Lasix 100 mg IV times once, which I will go ahead and schedule 80 mg IV t.i.d. x3 doses. The patient seems to be more acceptance to dialysis now. I will go ahead and consult with her primary children's court magistrate to come and evaluate her and discuss this with her. I did discuss with her about hemodialysis and she seems to be very receptive to it. We are going to resume same home medications. Heparin for DVT prophylaxis. Encourage ambulation. She will be on a renal diet. MD ESTER Guerra/NORBERTO /[id number]
[2019-09-12] MEDS: FUROSEMIDE INJ 10 MG/ML 4 ML VIAL IV SCH (22:23)
[2019-09-12 23:28] LABS: CREATINE KINASE MB 6.4 ng/mL (0-5.0)
[2019-09-13] VITALS (8 sets, daily range): BP systolic 98–140; BP diastolic 60–82
[2019-09-13] MEDS: FUROSEMIDE INJ 10 MG/ML 4 ML VIAL IV SCH ×2 (05:15→14:00)
[2019-09-13] MEDS: LEVOTHYROXINE SODIUM 112 MCG TAB PO SCH (05:15)
--- NOTE | 2019-09-13 06:21 | Diagnostic Imaging Report ---
EXAMINATION: CHEST SINGLE (PORTABLE) INDICATION: CHF. COMPARISON: Chest radiograph 09/12/2019. FINDINGS: TUBES and LINES: None. LUNGS/PLEURA: Central vascular congestion with central vascular congestion. Small right greater than left pleural effusions with lower lung zone patchy opacities, unchanged. HEART AND MEDIASTINUM: The cardiomediastinal silhouette is mildly enlarged, unchanged. BONES AND SOFT TISSUES: No acute osseous lesion. Soft tissues are unremarkable. UPPER ABDOMEN: No free air under the diaphragm. IMPRESSION: Unchanged cardiomegaly, central vascular congestion, and small bilateral pleural effusions. Patchy lower lung zone opacities, which may represent atelectasis, pneumonia, or pulmonary edema in the appropriate clinical setting. Signed by: Dr. Zaki Seay MD on 09/13/2019 6:18 AM
--- NOTE | 2019-09-13 06:39 | NUR ---
NOTIFIED OF ELEVATED TROPONIN RECEIVED NEW ORDER TO CONSULT CARDIOLOGY.
--- NOTE | 2019-09-13 06:41 | NUR ---
PATIENT IS RESTING IN BED. NO SIGNS OF DISTRESS NOTED. BED IS IN LOWEST POSITION AND CALL LIGHT IS WITHIN REACH.
[2019-09-13] MEDS: INSULIN LISPRO 100 UNIT/1 ML 3ML VIAL SQ SCH ×4 (07:30→21:00)
[2019-09-13 08:05] LABS: BASOPHILS % 0.5 % (0.0-1.0); EOSINOPHILS # (AUTO) 0.4 (0.0-0.4); EOSINOPHILS % 6.3 % (0.0-6.0); HEMATOCRIT 26.2 % (34.2-44.1); HEMOGLOBIN 8.4 g/dL (12.0-16.0); LYMPHOCYTES # (AUTO) 1.3 (1.0-3.2); LYMPHOCYTES % 22.7 % (18.0-39.1); MEAN CORPUSCULAR HEMOGLOBIN 29.1 pg (28-32); MEAN CORPUSCULAR HGB CONC 32.1 g/dL (31-35); MEAN CORPUSCULAR VOLUME 90.7 fL (81-99); MONOCYTES # (AUTO) 0.5 (0.2-0.8); MONOCYTES % 8.7 % (4.4-11.3); NEUTROPHILS # (AUTO) 3.5 (2.1-6.9); NEUTROPHILS % 61.5 % (38.7-80.0); PLATELET COUNT 332 x10e3/uL (140-360); RED BLOOD COUNT 2.89 x10e6/uL (3.6-5.1); RED CELL DISTRIBUTION WIDTH 12.4 % (11.7-14.4)
[2019-09-13] MEDS: HEPARIN SOD (PORCINE) 5,000 UNIT/ML VIAL SC SCH ×2 (08:10→21:25)
[2019-09-13] MEDS: CHOLECALCIFEROL 1,000 UNIT TAB PO SCH (08:10)
[2019-09-13 08:29] LABS: CREATINE KINASE MB 4.9 ng/mL (0-5.0)
[2019-09-13 08:51] LABS: ALBUMIN 2.5 g/dL (3.5-5.0); ALBUMIN/GLOBULIN RATIO 0.6 (0.8-2.0); ANION GAP 18.3 mmol/L (8-16); CALCIUM 8.4 mg/dL (8.4-10.2); CREATININE, SERUM 5.44 mg/dL (0.57-1.11); POTASSIUM 4.3 mmol/L (3.5-5.1)
[2019-09-13] MEDS: GABAPENTIN 100 MG CAP PO SCH ×3 (09:00→21:08)
[2019-09-13] MEDS ORDERED: NIFEDIPINE CR 30 MG TAB PO SCH (09:00)
[2019-09-13] MEDS: ASPIRIN 325 MG TAB PO SCH (09:00)
[2019-09-13] MEDS ORDERED: METOPROLOL SUCCINATE 25 MG TAB XL PO SCH (09:45)
--- NOTE | 2019-09-13 11:40 | Consultation ---
DATE OF CONSULTATION: Cardiology Consultation CONSULTING PHYSICIAN: Dr. Ureña. REASON FOR CONSULTATION: Shortness of breath and also elevated troponin. HISTORY OF PRESENT ILLNESS: Ms. Ivan is a 69-year-old female, who is known to our practice and was recently under our care about 3 weeks ago. She has a pertinent past medical history of chronic kidney disease, hypertension, diabetes mellitus, and comes into the ER due to progressive worsening shortness of breath and also orthopnea. She reports that since she got home after her last admission here, her shortness of breath has progressively gotten worse and in the last few days, she has been unable to sleep, but sitting up. She also cannot walk more than few feet without feeling overwhelmed and feeling very short of breath. She denies any fever or chills or chest pain. She does endorse fatigue and also frequent urination given her Lasix at home. Denies any abdominal pain. REVIEW OF SYSTEMS: Negative except as mentioned above. PAST MEDICAL HISTORY: As stated in the History of Present Illness above. PAST SURGICAL HISTORY: None recent. FAMILY HISTORY: Noncontributory. SOCIAL HISTORY: Denies drugs, alcohol intake, or tobacco use. PHYSICAL EXAMINATION: VITAL SIGNS: Temperature 98.0, pulse 82, respiratory rate 18, blood pressure 135/81, and oxygen saturation 100% on 2 L nasal cannula. GENERAL: Alert and oriented x3, resting comfortably in bed. Does not appear to be in any acute distress. NECK: Mild JVD noted. LUNGS: Clear to auscultation in all lobes besides the right lower lobe with crackles noted and also diminished breath sounds there. No wheezing. No rhonchi noted. CARDIOVASCULAR: Regular rate and rhythm. 2/6 systolic ejection murmur noted and also diastolic murmur present. ABDOMEN: Soft and nontender. EXTREMITIES: Lower extremity, no edema noted in her lower extremities. CARDIOVASCULAR MEDICATIONS: Nifedipine 60 mg p.o. daily, furosemide 80 mg IV q.8 hours, heparin 5000 units subcutaneous q.12 hours, metoprolol 25 mg p.o. daily, aspirin 81 mg p.o. daily, and hydralazine 10 mg q.4 hours for hypertension. LABORATORY DATA: WBC 5.72, hemoglobin 8.4, hematocrit 26.5, and platelets 332. Sodium 138, potassium 4.2, BUN 62, and creatinine 5.44. Troponin most recent 0.733, CK-MB 4.90, and creatine kinase 131. Chest x-ray, unchanged cardiomegaly with central vascular congestion and small bilateral pleural effusion, patchy lower zone opacity which may represent pneumonia, pulmonary edema, or atelectasis. TELEMETRY: Normal sinus rhythm. IMPRESSION: 1. Gxu-CB-jcqcxcfmr myocardial infarction. 2. Pulmonary edema. 3. Chronic kidney disease, stage 5, not on hemodialysis. 4. Anemia secondary to chronic kidney disease. 5. Hypertension. RECOMMENDATIONS: Continue our medical therapy for management of the above. Continue Lasix as above. Monitor renal status. However, once this patient is to clear end-stage renal disease and has started dialysis, she will require ischemic evaluation and cardiac catheterization. Continue to monitor and trend troponins closely. Maintain on telemetry at all times. Monitor worsening orthopnea. We will continue to follow this patient very closely. Maintain on oxygen at all times as needed. Dictated by Ethel Hampton NP Kris Adair MD JWV/MODL /[id number]
--- NOTE | 2019-09-13 12:26 | NUR ---
INFECTIOUS DISEASE CONSULTATION 09/13/19 REASON FOR CONSULTATION: CHIEF COMPLAINT: SOB HPI: This is a 69 year old female with SOB. the patient was recently hospitalized with CKD and fluid overload. The patient had previously had 1.2L of pleural effusion removed via thoracentesis. The patient was treated for PNA. She reports that within the past few days, she became increasingly SOB. The patient arrived to the ED with a creatinine of 5.5 and a BNP of 2759. The CXR indicated pleural effusions. PMH: CKD stage 4-5, HTN, hypothyroidism, peripheral neuropathy, and thyroid disorder ROS: Positive: SOB Negative: fever, chills, weight loss, diarrhea, vomiting ALL 14 point ROS negative unless otherwise noted. FAMILY HISTORY: noncontributory SURGICAL HISTORY: denies smoking, drinking, drug abuse PHYSICAL EXAM GENERAL: Alert, awake in bed. HEENT: normocephalic, ataumatic CV: s1, s2, no rubs, gallops CHEST: rhonchi, diminished ABD: soft, non tender EXT: moves all PSYCH: intact, anxious LABS: Reviewed RADIOLOGY: IMPRESSION: Unchanged cardiomegaly, central vascular congestion, and small bilateral pleural effusions. Patchy lower lung zone opacities, which may represent atelectasis, pneumonia, or pulmonary edema in the appropriate clinical setting. ASSESSMENT 1. Pulmonary edema 2. Small bilateral pleural effusions 3. Chronic kidney disease, stage 4-5 4. Acute kidney injury 5. Hypertension 6. Hypothyroidism 7. Peripheral neuropathy 8. Thyroid disorder 9. Pneumonia PLAN 09/13/19 Nephrology consult and IR consult for the initiation of HD. Patient and daughter were both informed of plans and agreed at this time. From an ID standpoint: we will start Rocephin since the patient had a very recent bought of PNA. Plan for 3 days at this time. Follow reqs from nephrology and pulmo. Repeat CXR. Repeat labs. Afebrile and without leukocytosis at this time. DISCUSSED with Dr. Armstrong
--- NOTE | 2019-09-13 14:10 | NUR ---
Patient sitting up in bed . denies any SOB, No distress noted, Refused signed the consent this time stated, he want to ask some questions to Dr Denney before she sign cosemt
--- NOTE | 2019-09-13 14:30 | Consultation ---
DATE OF CONSULTATION: Renal Consultation Thank you for the consultation, Dr. Ureña. HISTORY OF PRESENT ILLNESS: Ms. Ivan is a pleasant 69-year-old female, well known to me from the outpatient setting, where I follow her for chronic kidney disease, stage 5. She also has a prior history of hypertension, diabetes mellitus type 2, history of prior CVA, history of congestive heart failure, whom I know quite well from the outpatient setting. The patient has been following up in the office with escalating doses of Lasix required to help with her shortness of breath and worsening fluid overload. However, at this time, the patient presented to the ER with worsening shortness of breath last night. Chest x-ray was consistent with fluid overload with pulmonary vascular congestion and bilateral effusions. The patient also has elevated renal indices. Her creatinine today is 5.4, BUN is 62, and potassium is 4.3. Renal consultation has been asked for in the management of her CKD stage 5 and possibility of starting on dialysis. Currently, the patient is seen in her room. She is not in overt respiratory distress, however, she is on 2 L nasal cannula. She does not have any lower extremity swelling. She does have shortness of breath. She has been receiving Lasix even in the outpatient setting, however, the response has been diminishing with escalating doses of Lasix. I had a long discussion with both the patient and her daughter and the patient is somewhat agreeable to start on dialysis, however, she has not completely made her mind up yet. Currently, she has no other specific symptoms. No fever. No cough. No abdominal pain. No diarrhea. No vomiting at this time. PAST MEDICAL HISTORY: As outlined above. ALLERGIES: TO IODINE AND IODINATED CONTRAST, FLURAZEPAM. SOCIAL HISTORY: No current tobacco or alcohol use. FAMILY HISTORY: Noncontributory. REVIEW OF SYSTEMS: See HPI. Otherwise, all systems negative. MEDICATIONS: As follows. The patient takes nifedipine XL. The patient is on vitamin D3. The patient is on furosemide 80 mg q.8 hours. The patient is on levothyroxine, aspirin, and metoprolol. REVIEW OF SYSTEMS: See HPI. Otherwise, all systems negative. PHYSICAL EXAMINATION: VITAL SIGNS: Blood pressure is 135/81, 82 pulse, 18 respiratory rate, and afebrile. HEENT: No cervical lymphadenopathy. NECK: Supple without masses. No obvious JVD. Moist appearing oral mucosa. SKIN: Moist with good skin turgor. CHEST WALL: Good expansion. No chest wall tenderness. LUNGS: Rales at the bases bilaterally. CARDIOVASCULAR: S1 and S2. No obvious gallop or murmur. ABDOMEN: Soft. Positive bowel sounds. Nontender. No organomegaly. EXTREMITIES: There is no evidence of lower extremity edema. No clubbing. No cyanosis. NEUROLOGIC: Awake, alert, and oriented x3. Grossly nonfocal exam. LABORATORY WORKUP: Creatinine is 5.4, was 5.47 on admission, 5.44 now, BUN 62, potassium is 4.3, bicarbonate is 24, sodium 138, and potassium is 4.3. On imaging, chest x-ray consistent with cardiomegaly, central venous congestion and bilateral effusions. IMPRESSION AND PLAN: 1. Chronic kidney disease stage 5/end-stage renal disease. The patient has not started dialysis yet. She is at chronic kidney disease stage 5, but she is now coming in with volume overload despite escalating doses of furosemide. I had a long discussion with both her and her daughter and with her daughter on the phone. I have recommended that she start on at least acute dialysis here in the hospital and continue in the chronic facility and long-term dialysis facility in the outpatient setting. I will ask Interventional Radiology to place a tunneled catheter tomorrow. The patient will make a final decision tomorrow prior to starting dialysis. I did mention to her that my recommendation would be to start, since she was already tried Lasix and that her fluid overload is going to be recurrent if she does not start dialysis at this time. a. We will repeat labs in the morning including basic metabolic panel, mag, phos, and CBC. Once a tunneled dialysis catheter is placed, we will start on dialysis and then we will have her be placed in the outpatient dialysis clinic. We will do acute dialysis in the hospital until the patient is placed outpatient. 2. Hypertension. Blood pressure is currently stable. Continue to monitor. Continue current medication. 3. Anemia of chronic disease, stable H and H. We will continue to monitor. 4. Fluid overload. We will continue with IV Lasix for now. We will decrease the dose to 80 mg IV q.12 hours. For tomorrow, we will have them place a tunneled dialysis catheter. Also, we will continue with IV Lasix for now and tomorrow, we will have IR place a tunneled dialysis catheter and subsequently, start acute dialysis and we will place the patient in the outpatient setting for chronic dialysis. Thank you once again for the consultation. We will follow the patient closely along with you and make further recommendations. Jaguar Garcias MD /MODL /[id number] cc: Zhang Ureña MD
[2019-09-13] MEDS ORDERED: FUROSEMIDE INJ 10 MG/ML 4 ML VIAL IV SCH (15:00)
[2019-09-13] MEDS ORDERED: ONDANSETRON HCL 4 MG ORAL DISINTEGRATING TAB PO PRN (15:00)
--- NOTE | 2019-09-13 15:21 | Progress Note ---
DATE: 09/13/2019 Medicine Progress Note SUBJECTIVE: The patient states she is breathing much better now. She did speak with Nephrology and she has agreed to hemodialysis. I will defer all dialysis questions to the water use inspector. She also will speak to the commercial instructor supervisor. The patient has been afebrile. There is no evidence of any pneumonia. PHYSICAL EXAMINATION: VITAL SIGNS: Temperature is 96.5, pulse is 82, respiratory rate is 18, blood pressure 135/81, pulse ox 98% on 2 L nasal cannula. GENERAL: Not in acute distress. Alert and oriented x3. Cooperative on examination. HEENT: Head is normocephalic and atraumatic. Eyes; pupils are equal, round and reactive to light bilaterally. Extraocular movements are intact bilaterally. NECK: Supple. Good range of motion. Throat; no evidence of erythema or exudates in the posterior pharynx. Has poor dentition. PULMONARY: Clear to auscultation bilaterally. No wheezing, rales or rhonchi. No crackles appreciated. CARDIOVASCULAR: Positive S1 and S2. No murmurs, rubs, or gallops. ABDOMEN: Soft, nondistended, nontender to palpation. Bowel sounds present MUSCULOSKELETAL: Strength is 5/5 throughout. No evidence of any muscle deficits on examination. No weakness appreciated. NEUROLOGICAL: Cranial nerve II through XII grossly intact. No evidence of any neurological deficits on exam. SKIN: Intact. Warm to touch. Good cap refill. PSYCHIATRIC: Normal affect and mood. EXTREMITIES: No edema. Good range of motion throughout. LABORATORY FINDINGS: Show white count 5.7, hemoglobin 8.4, hematocrit 26, platelets of 332. Chemistry; sodium 138, potassium 4.3, chloride 100, bicarb 24, anion gap of 18, BUN is 62, creatinine 5.4, glucose is 88. Lactic acid was 1.3, normal calcium 8.4. Her troponin was slightly elevated to 0.733. Albumin was 2.5. Urinalysis noted. MICROBIOLOGY: Blood cultures, no growth. Urine cultures, no growth. Shows evidence of bilateral pleural effusions. IMPRESSION: 1. Acute respiratory distress secondary to pulmonary edema from underlying renal failure. 2. Chronic kidney disease, stage 5. 3. Anemia of chronic kidney disease. 4. Hypertension. 5. Gaw-HW-vnlshhxba myocardial infarction. 6. likely type 2 myocardial infarction due to troponin leakage from underlying renal failure. PLAN: At this time, it seems that she has agreed to dialysis with the water use inspector. She did not sign consent for a tunneled catheter. She wants to talk to the commercial instructor supervisor as she is concerned she has pneumonia. I do not feel like the patient has pneumonia. She has no clinical impression for pneumonia. Her white count is normal. She is afebrile and she did not describe any symptoms of pneumonia during my interview with her. At any rate, I will defer that to Pulmonary. As far as her mild troponin leak, Cardiology has been consulted. This seems to be more of a type 2 myocardial infarction due to chronic kidney disease. She does need a cardiac cath at some point, but she must agree to dialysis 1st before pursuing any kind of heart catheterization due to contrast exposure. She does have an iodine allergy, she will need to have premedications for any procedure. Otherwise, we will continue with Lasix 80 mg IV q.8 hours. Get a.m. labs. Follow other consultants recommendations. Continue on renal diet. Encourage ambulation. MD ESTER Guerra/NORBERTO /[id number]
[2019-09-13 16:04] LABS: CREATINE KINASE MB 5.7 ng/mL (0-5.0)
--- NOTE | 2019-09-13 17:27 | NUR ---
Dr Miller here for rounds, Patient said she is not signing consent until they Do Chest X-ray/Ultrasound which is ordered by Dr Vale.
--- NOTE | 2019-09-13 17:36 | NUR ---
patient was c/o lower back pain, and BP is trending go down, @ 1650 it was 98/55, this time its 101/57, Notified Dr Ureña, new orders recvd to Hold BP medications and Lasix IV, Patient not in any distress, keep monitoring
--- NOTE | 2019-09-13 17:55 | NUR ---
Pulmonary Medicine DATE 09/13/2019 SUBJECTIVE: 2 L/min oxygen no respiratory distress she complained of excess urination so lasix drip stopped d/w daughter to coordinate care. d/w nursing CXR ~stable REVIEW OF SYSTEMS: no bleeding, no chest pain PHYSICAL EXAMINATION: VITAL SIGNS: vital signs noted, reviewed per the chart record. GENERAL: no acute distress, alert and calm. HEENT: Normocephalic and atraumatic. NECK: Supple. Throat midline. LUNGS: Bilateral air entry, decreased breath sounds bilaterally, some rales. CARDIOVASCULAR: S1 and S2. No murmurs, rubs, or gallops. ABDOMEN: Soft and nontender. EXTREMITIES: No clubbing. No cyanosis. There is only trace edema. INTEGUMENT: No rash. No purpura. LABORATORY DATA: k 4.3, cr 5.4 IMPRESSION AND PLAN: 1. Pulmonary edema. 2. Small to moderate bilateral pleural effusions. 3. Chronic kidney disease, stage 4-5. 4. Acute kidney injury. 5. Hypertension. 6. Hypothyroidism. 7. Peripheral neuropathy. 8. Thyroid disorder. Repeat a chest x-ray tomorrow. Consider US if fluid is increasing or if the patient has symptoms when mobilizing. Else consider outpatient thoracentesis in 7-10 days to allow more fluid to accumulate if she continues to fail diuretic management. PAROLE HEARING OFFICER considerations from renal expert. Reported that the patient and nkechi are thinking about options Thank you very much, Dr. Ureña, for this consult. Please call for questions.
[2019-09-13] MEDS ORDERED: MIDODRINE HCL 5 MG TABLET PO ONE (18:00)
[2019-09-13] MEDS ORDERED: ACETAMINOPHEN/CODEINE 300MG - 30MG TAB PO PRN (18:00)
--- NOTE | 2019-09-13 19:30 | NUR ---
RECEIVED REPORT FROM DAY NURSE. PATIENT IS RESTING COMFORTABLY IN THE BED. BED IS IN LOWEST POSITION AND CALL LIGHT IS WITHIN REACH.WILL CONTINUE TO MONITOR PATIENT.
--- NOTE | 2019-09-13 20:00 | NUR ---
PATIENT IS COMPLAINING OF INDIGESTION. NOTIFIED. RECEIVED NEW ORDERS FOR MALOOX ONE TIME DOSE AND PROTONIX 40MG DAILY.
[2019-09-13] MEDS ORDERED: PANTOPRAZOLE SOD 40 MG TABEC PO ONE (20:30)
[2019-09-13] MEDS ORDERED: MAGNESIUM/ALUMINUM/SIMETHICONE 30 ML UDC PO ONE (20:30)
--- NOTE | 2019-09-13 21:13 | NUR ---
PATIENT HAS REFUSED TO TAKE SCHEDULED INSULIN. PATIENT STATES SHE DOES NOT TAKE INSULIN AT HOME. PATIENT HAS ALSO REFUSED TO TAKE SCHEDULED GABAPENTIN MEDICATION.
[2019-09-14] VITALS (8 sets, daily range): BP systolic 105–122; BP diastolic 65–84
[2019-09-14] MEDS: LEVOTHYROXINE SODIUM 112 MCG TAB PO SCH (05:23)
[2019-09-14 05:49] LABS: BASOPHILS % 0.4 % (0.0-1.0); EOSINOPHILS # (AUTO) 0.6 (0.0-0.4); EOSINOPHILS % 8.7 % (0.0-6.0); HEMATOCRIT 23.1 % (34.2-44.1); HEMOGLOBIN 7.6 g/dL (12.0-16.0); LYMPHOCYTES # (AUTO) 2.1 (1.0-3.2); LYMPHOCYTES % 30.1 % (18.0-39.1); MEAN CORPUSCULAR HEMOGLOBIN 29.5 pg (28-32); MEAN CORPUSCULAR HGB CONC 32.9 g/dL (31-35); MEAN CORPUSCULAR VOLUME 89.5 fL (81-99); MONOCYTES # (AUTO) 0.7 (0.2-0.8); MONOCYTES % 9.8 % (4.4-11.3); NEUTROPHILS # (AUTO) 3.5 (2.1-6.9); NEUTROPHILS % 50.6 % (38.7-80.0); PLATELET COUNT 322 x10e3/uL (140-360); RED BLOOD COUNT 2.58 x10e6/uL (3.6-5.1); RED CELL DISTRIBUTION WIDTH 12.2 % (11.7-14.4)
[2019-09-14 06:14] LABS: ANION GAP 16.9 mmol/L (8-16); CALCIUM 7.6 mg/dL (8.4-10.2); CREATININE, SERUM 5.7 mg/dL (0.57-1.11); MAGNESIUM 1.9 MG/DL (1.3-2.1); PHOSPHORUS 7.2 MG/DL (2.3-4.7); POTASSIUM 4.9 mmol/L (3.5-5.1)
--- NOTE | 2019-09-14 06:49 | NUR ---
PATIENT IS RESTING IN BED. NO SIGNS OF DISTRESS NOTED. BED IS IN LOWEST POSITION AND CALL LIGHT IS WITHIN REACH.
--- NOTE | 2019-09-14 07:00 | NUR ---
PATIENT IS AWAKE, ALERT, AND IN STABLE CONDITION WITH NO S/S OF RESPIRATORY DISTRESS. NO PAIN VOICED. TELEMETRY AND 02 APPLIED. CALL LIGHT IS WITHIN REACH, PATIENT INSTRUCTED TO CALL FOR ASSISTANCE NEEDED.
[2019-09-14] MEDS: INSULIN LISPRO 100 UNIT/1 ML 3ML VIAL SQ SCH ×4 (07:30→20:26)
[2019-09-14] MEDS: GABAPENTIN 100 MG CAP PO SCH ×3 (08:54→20:25)
[2019-09-14] MEDS: ASPIRIN 325 MG TAB PO SCH (08:56)
[2019-09-14] MEDS: HEPARIN SOD (PORCINE) 5,000 UNIT/ML VIAL SC SCH ×2 (08:56→21:00)
[2019-09-14] MEDS: PANTOPRAZOLE SOD 40 MG TABEC PO SCH (08:56)
[2019-09-14] MEDS: CHOLECALCIFEROL 1,000 UNIT TAB PO SCH (08:56)
--- NOTE | 2019-09-14 09:59 | Diagnostic Imaging Report ---
EXAMINATION: CHEST SINGLE (PORTABLE) INDICATION: CHF COMPARISON: Chest radiograph of 09/13/2019 FINDINGS: LINES/TUBES:EKG leads overlie the chest. LUNGS:The lungs are moderately inflated. There is perihilar fullness and indistinctness of the pulmonary vasculature. Unchanged bibasilar patchy opacities, most likely subsegmental atelectasis. PLEURA:Trace bilateral pleural effusion. No pneumothorax. MEDIASTINUM:Cardiomediastinal silhouette is stably enlarged. Atherosclerotic calcifications of the thoracic aorta. BONES/SOFT TISSUES:No acute osseous injury. ABDOMEN:No free air under the diaphragm. IMPRESSION: Cardiomegaly, mild pulmonary edema and trace bilateral pleural effusions, not significantly changed from 09/13/2019. Unchanged bibasilar patchy opacities, most likely subsegmental atelectasis. Signed by: Mayelin Peng MD on 09/14/2019 9:56 AM
--- NOTE | 2019-09-14 10:10 | NUR ---
Pt. expressed no spiritual or emotional concerns at this time. [facility] provided hospitality and information about availability of [facility] services and how to reach hand alterations seamstress, if needed. No need to follow at this time. JONNATHAN ROSENBERG [facility]ual [facility] Department O: [phone]
--- NOTE | 2019-09-14 10:22 | Progress Note ---
DATE: 09/14/2019 Nephrology Progress Note SUBJECTIVE: The patient was followed up for CKD 5 and fluid overload. Now, feeling better on IV Lasix diuresis. Denies active nausea. OBJECTIVE: GENERAL: She appears in no acute distress at rest. VITAL SIGNS: Blood pressure 105/84, pulse 72 per minute, breathing at 20 per minute, afebrile. NECK: Supple. Positive for jugular venous distention. LUNGS: Auscultation reveals somewhat decreased breath sounds at both bases. No wheezing or crepitation heard. CARDIOVASCULAR: Shows normal S1, S2 without rub or gallop. ABDOMEN: Soft, depressible, nondistended. EXTREMITIES: Without pitting edema. NEUROLOGIC: She is alert and oriented x3. LABORATORY DATA: Reviewed. Hemoglobin is down 7.6, normal white count and platelets. BUN is 73, creatinine 5.7. Electrolytes normal. ASSESSMENT AND PLAN: 1. Chronic kidney disease stage 5 with recurrent fluid overload, advised to start hemodialysis. The patient will sign consent for tunneled dialysis catheter after discussing with her hospital staff pharmacist today. 2. Anemia, secondary to chronic kidney disease. Will need ESAs in the long run. 3. Fluid overload and pulmonary edema, much improved on IV Lasix since admission. Should improve further once hemodialysis started. 4. Hypertension, blood pressure is controlled. On p.r.n. hydralazine. MD ELMER Wong/MODL /[id number]
--- NOTE | 2019-09-14 12:08 | Progress Note ---
DATE: SUBJECTIVE: The patient is seen and evaluated. Available labs and notes reviewed. REVIEW OF SYSTEMS: Shortness of breath improved significantly. No nausea, no vomiting, no fever, no chills, no chest pain, no diarrhea, no rash. OBJECTIVE: VITAL SIGNS: Temperature is 97.8, pulse is 71, respirations 19, blood pressure 113/67. GENERAL: Alert and oriented, very pleasant, in no acute distress. CV: S1 and S2. CHEST: Equal expansion. Decreased breath sounds. No acute distress. ABDOMEN: Soft and nontender. No distention. HEENT: Moist. No pallor. No JVD. EXTREMITIES: Weak. MEDICATIONS: Medications list reviewed. As far as Infectious Disease point of view, the patient is not on any antibiotics. LABORATORY STUDIES: Blood cultures 7.01, hemoglobin 7.6, platelet 322. Sodium 134, potassium 4.9, creatinine is 5.7. SEROLOGY: COVID-19 negative on 09/12/2019. MICROBIOLOGY: Blood culture and urine culture on 09/11 are negative so far. IMAGING: Chest x-ray from today showed cardiomegaly with mild pulmonary edema with trace bilateral pleural effusion, not significantly changed from 09/13/2019, also unchanged bibasilar patchy opacities, most likely subsegmental atelectasis. ASSESSMENT AND PLAN: This is a 69-year-old female, admitted with: 1. Shortness of breath with concerns of pulmonary edema. 2. Bilateral pleural effusions, small. 3. Chronic kidney disease. 4. Hypertension. 5. Hypothyroidism. 6. Peripheral neuropathy. 7. Pneumonia. 8. Thyroid disorder. The patient remains off antibiotics, remains afebrile with white counts within normal limit. Improvement in shortness of breath. Clinically in no acute distress. Discussed with Dr. Armstrong. Please refer to chart for more information. Dictated by Marlo Schaffer PA-C (Al) Porfirio Armstrong MD /MODL /[id number]
[2019-09-14] MEDS ORDERED: CEFTRIAXONE SOD 1 GM VIAL IV SCH (12:45)
--- NOTE | 2019-09-14 13:16 | NUR ---
Pulmonary Medicine DATE 09/14/2019 SUBJECTIVE: patient without respiratory distress she is still contemplating HD startup CXR with stable fluid levels eats REVIEW OF SYSTEMS: no bleeding, no chest pain PHYSICAL EXAMINATION: VITAL SIGNS: vital signs noted, reviewed per the chart record. GENERAL: no acute distress, alert and calm. HEENT: Normocephalic and atraumatic. NECK: Supple. Throat midline. LUNGS: Bilateral air entry, decreased breath sounds bilaterally, some rales. CARDIOVASCULAR: S1 and S2. No murmurs, rubs, or gallops. ABDOMEN: Soft and nontender. EXTREMITIES: No clubbing. No cyanosis. There is only trace edema. INTEGUMENT: No rash. No purpura. LABORATORY DATA: k 4.9, cr 5.7, wbc 7, hct 23, plt 233 IMPRESSION AND PLAN: 1. Pulmonary edema. 2. Small to moderate bilateral pleural effusions. 3. Chronic kidney disease, stage 4-5. 4. Acute kidney injury. 5. Hypertension. 6. Hypothyroidism. 7. Peripheral neuropathy. 8. Thyroid disorder. Repeat a chest x-ray tomorrow, or outpatient Thoracentesis will eventually be indicated if she remains off of dialysis. Sometimes HD can diminish the effusions, and this is an alternative. --low to moderate indication for early thoracentesis, if outpatient procedure is felt difficult --optimally would consider outpatient thoracentesis in 7-21 days to allow more fluid to accumulate. From a pulmonary point of view, if she is authorized to see me as an outpatient (...HMO insurance) it is easy to arrange serial imaging and coordinate the thoracentesis. ELECTRIC FURNACE OPERATOR considerations from renal expert. Reported that the patient and nkechi are thinking about options Thank you very much, Dr. Ureña, for this consult. Please call for questions.
[2019-09-14] MEDS: CEFTRIAXONE SOD 1 GM/NS 50 ML 50 ML IV SCH (13:26)
--- NOTE | 2019-09-14 13:53 | Progress Note ---
DATE: 09/14/2019 Medicine Progress Note SUBJECTIVE: The patient continues to refuse hemodialysis. She continues to go back and forth about her decision. The patient was initially started on IV Rocephin because the patient thinks that she has pneumonia. By imaging studies it is not consistent nor does the consultants feel that the patient has pneumonia. The patient continues to go back and forth about her decision making. PHYSICAL EXAMINATION: VITAL SIGNS: Temperature is 97.8, pulse 71, respirations 19, blood pressure 113/67, pulse ox 100% on room air. GENERAL: Not in acute distress. Alert and oriented x3. Cooperative on examination. HEENT: Head is normocephalic and atraumatic. Eyes; pupils are equal, round and reactive to light bilaterally. Extraocular movements are intact bilaterally. Throat; no evidence of erythema or exudates in the posterior pharynx. Has poor dentition. NECK: Supple. Good range of motion. PULMONARY: Clear to auscultation bilaterally. No wheezing, rales or rhonchi. No crackles appreciated. CARDIOVASCULAR: Positive S1 and S2. No murmurs, rubs, or gallops. ABDOMEN: Soft, nondistended, nontender to palpation. Bowel sounds present MUSCULOSKELETAL: Strength is 5/5 throughout. No evidence of any muscle deficits on examination. No weakness appreciated. NEUROLOGICAL: Cranial nerve 2 through 12 were grossly intact. No evidence of any neurological deficits on exam. SKIN: Intact. Warm to touch. Good cap refill. PSYCHIATRIC: Normal affect and mood. EXTREMITIES: No edema. Good range of motion throughout. LABORATORY DATA: Labs show white count 7, hemoglobin 7.6, hematocrit 23, platelets of 322. Chemistry; sodium 134, potassium 4.9, chloride 98, bicarb 24, anion gap of 16, BUN is 73, creatinine is 5.7, calcium 7.6, phosphorus is 7.2, magnesium 1.9. Troponin slightly elevated 0.774. Urinalysis noted. Hepatitis panel is pending. MICROBIOLOGY: Blood cultures are negative. Urine cultures are negative. IMAGING STUDIES: Chest x-ray this morning shows cardiomegaly with mild pulmonary edema. Trace bilateral pleural effusions. Unchanged bibasilar patchy opacity, most likely subsegmental atelectasis. IMPRESSION: 1. Acute respiratory distress secondary to pulmonary edema from underlying end-stage renal disease. 2. Chronic kidney disease, stage 5. 3. Anemia of chronic kidney disease. 4. Hypertension. 5. [id number] myocardial infarction likely type 2 myocardial infarction from underlying troponin leakage. 6. Atelectasis. PLAN: At this time, the patient was offered IV antibiotics as she is insisting that she has pneumonia, but does not want the IV antibiotics given. I do not feel the patient has pneumonia. She does not have a white count. She is afebrile, has no symptoms. This is likely to be the pulmonary edema and atelectasis that has being seen on imaging studies. Pulmonary and ID agree with my plan of care. We will defer IV antibiotics to the patient and ID if they feel she does need it, but it does not seem like the patient truly needs it at this moment. Cardiology was following as well. The patient does need an ischemic workup with a heart cath if she agrees to do dialysis. At this time, we will treat her medically and conservatively. As for her dialysis, she continues to go back and forth with the harvest supervisor about wanting hemodialysis or not. She has done this on prior admissions as well. I voiced to her with the nurse present, it is her decision to make that decision here soon. If she does not want dialysis, then she should go home because there is nothing here that we could offer at this current moment. She can go home with oral diuretics and she can make decision at a later date. She continues to tell me that she wants to think about it, but she has been saying that for days now. Once again, we will defer that to Nephrology. We will continue same plan of care and monitor closely. MD ESTER Guerra/NORBERTO /[id number]
--- NOTE | 2019-09-14 17:52 | NUR ---
Nutrition Screen Note RD Recommendation for Physician: - Continue Renal diet, add Vegetarian per pt preference Plan of Care: RD following, monitoring for tolerance and adequacy Nutrition reason for involvement: DX: CHF Primary Diagnose(s): CHF, dyspnea, ESRD PMH: HTN, DM, CKD4, peripheral neuropathy Ht: 56 in Wt: 162 lb BMI: 36.6 kg/m2 IBW: [address] Assessment: (09/13) 69 YOF admitted for CHD, dyspnea, and ESRD. Pt seen today per admit dx of CHF, no prior hx of CHF indicated in chart, however pt with ongoing CKD4. Pt reports good appetite and po intake currently and LEAD WAREHOUSE ASSOCIATE, obtained pt meal/food preferences. Pt denies wt loss, noted wt of 162# earlier this month for prior admit. Noted per MD notes pt resistant to HD initiation, declining catheter placement- ongoing discussion with MDs. Pt reports she follows a renal diet at home and is followed by a Fur Vault Attendant, renal diet handout provided- declined review. Chart reviewed. Labs and meds reviewed. Will continue to monitor. Current Diet: Renal Malnutrition Evaluation (09/14/19) The patient does not meet criteria for a specified degree of malnutrition at this time. Will re-evaluate at follow-up as appropriate. Diet Education Needs Assessment: Diet education indicated, pt given handout. Learner(s): pt Barriers: none Cultural/Language Modifications: none Readiness: ready Method: handout Topics: ESRD nutrition therapy Understanding/Compliance: good Diet tolerance: tolerating po Nutrition Care Level: Low Signed: Mackenzie Ramon RD, LD, [facility]
--- NOTE | 2019-09-14 19:15 | NUR ---
patient received awake, alert, lying quietly in bed. vss. no c/o pain noted. pm assessment complete. patient instructed to call for assistance when needed.
--- NOTE | 2019-09-14 19:30 | NUR ---
PATIENT IN STABLE CONDITION WITH NO S/S OF RESPIRATORY DISTRESS- NO PAIN VOICED. CALL LIGHT IS WITHIN REACH, INSTRUCTED TO CALL FOR ASSISTANCE NEEDED. BEDSIDE SHIFT REPORT GIVEN TO ONCOMING NURSE.
[2019-09-15] VITALS (8 sets, daily range): BP systolic 119–147; BP diastolic 60–77
--- NOTE | 2019-09-15 00:10 | Progress Note ---
DATE: 09/14/2019 Cardiology Progress Note SUBJECTIVE: No major events overnight. OBJECTIVE: VITAL SIGNS: Temperature afebrile, pulse 68, respiratory rate 18, blood pressure 120/73, saturating 100% on 2 L nasal cannula. GENERAL: Well developed, well nourished, in no acute distress. CARDIOVASCULAR: Regular rate and rhythm. No murmurs, rubs, or gallops. LUNGS: Clear to auscultation bilaterally. Decreased breath sounds at the bases. ABDOMEN: Soft, nontender, nondistended. NEURO AND PSYCH: Alert and oriented to person, place, and time. Normal affect. INPATIENT MEDICATIONS: Reviewed. LABORATORY DATA: Reviewed. TELEMETRY DATA: Reviewed, shows normal sinus rhythm. ASSESSMENT AND PLAN: 1. Amw-SM-jhvgubzko myocardial infarction. 2. Pulmonary edema. 3. Chronic kidney disease, stage 5. 4. Anemia secondary to chronic kidney disease. 5. Hypertension. RECOMMENDATIONS: Plan for dialysis catheter placement soon. We will initiate dialysis in the next 1 to 2 days. Once the patient had dialysis, plan for cardiac catheterization, likely toward the end of the week. Thank you for this consult. We will continue to follow. MD MARCUS Dailey/NORBERTO /[id number]
[2019-09-15 05:29] LABS: EOSINOPHILS # (AUTO) 0.4 (0.0-0.4); HEMATOCRIT 23.5 % (34.2-44.1); HEMOGLOBIN 7.6 g/dL (12.0-16.0); LYMPHOCYTES # (AUTO) 1.6 (1.0-3.2); MEAN CORPUSCULAR HEMOGLOBIN 29.1 pg (28-32); MEAN CORPUSCULAR HGB CONC 32.3 g/dL (31-35); MONOCYTES # (AUTO) 0.5 (0.2-0.8); NEUTROPHILS # (AUTO) 3.1 (2.1-6.9); PLATELET COUNT 316 x10e3/uL (140-360); RED BLOOD COUNT 2.61 x10e6/uL (3.6-5.1); RED CELL DISTRIBUTION WIDTH 12.4 % (11.7-14.4)
[2019-09-15 05:54] LABS: ANION GAP 17.4 mmol/L (8-16); CALCIUM 7.7 mg/dL (8.4-10.2); CREATININE, SERUM 6.06 mg/dL (0.57-1.11); POTASSIUM 4.4 mmol/L (3.5-5.1)
[2019-09-15] MEDS: LEVOTHYROXINE SODIUM 112 MCG TAB PO SCH (05:54)
[2019-09-15] MEDS: CEFTRIAXONE SOD 1 GM/NS 50 ML 50 ML IV SCH (05:54)
--- NOTE | 2019-09-15 07:00 | NUR ---
BESIDE SHIFT REPORT RECEIVED FROM DISH STACKER RN. PT DENIES NEEDS AT THIS TIME.
[2019-09-15] MEDS: INSULIN LISPRO 100 UNIT/1 ML 3ML VIAL SQ SCH ×4 (07:30→21:00)
[2019-09-15] MEDS: ASPIRIN 325 MG TAB PO SCH (08:11)
[2019-09-15] MEDS: GABAPENTIN 100 MG CAP PO SCH ×4 (08:12→21:12)
[2019-09-15] MEDS: HEPARIN SOD (PORCINE) 5,000 UNIT/ML VIAL SC SCH ×2 (08:12→21:10)
[2019-09-15] MEDS: PANTOPRAZOLE SOD 40 MG TABEC PO SCH (08:12)
[2019-09-15] MEDS: CHOLECALCIFEROL 1,000 UNIT TAB PO SCH (08:12)
--- NOTE | 2019-09-15 08:30 | NUR ---
PT OFF THE FLOOR TO IR.
[2019-09-15] MEDS ORDERED: MIDAZOLAM HCL 2 MG/2 ML VIAL ONE (09:17)
[2019-09-15] MEDS ORDERED: FENTANYL CITRATE/PF 100MCG/2 ML INJ ONE (09:17)
[2019-09-15] MEDS ORDERED: HEPARIN SOD (PORCINE) 1000 UNIT/ML SDV ONE (09:17)
[2019-09-15] MEDS ORDERED: LIDOCAINE HCL 1% LOCAL INJ 20 ML VIAL ONE (09:17)
[2019-09-15] MEDS ORDERED: SODIUM CHLORIDE 0.9% 250ML 250 ML ONE (09:29)
--- NOTE | 2019-09-15 11:30 | NUR ---
PT BACK TO THE FLOOR FROM IR. HTOMPSON WNL. PT DENIES NEEDS AT THIS TIME.
--- NOTE | 2019-09-15 13:05 | NUR ---
PT SIGNED CHOICE FOR [facility] RUSS FILED IN CHART. COPIED CLINICALS AND COVID FORM, FAXED TO [facility] ADMISSIONS
--- NOTE | 2019-09-15 13:06 | Diagnostic Imaging Report ---
Tunneled dialysis catheter insertion. History: Renal failure. Modality: Sonography and fluoroscopy. Sedation: Versed 1.5 mg and fentanyl 75 mcg was given intravenously for conscious sedation. Vital signs were monitored throughout the procedure by a nurse, and remained stable. Physician intra-service time was 30 minutes. Laborer Vegetable Farm: MD James. Environmental Protection Geologist: None. Approach: Right internal jugular vein Estimated blood loss: < 5 cc. Specimen: None. Fluoroscopy Time: 0.3 min. Dose (Ka,r): 0.5 mGy. Technique: Informed written consent was obtained. Discussion of risks, benefits, and alternatives were made with the patient. The patient expressed understanding and agreed to proceed. All elements maximal sterile barrier technique was utilized for this procedure, including utilization of sterile scrub solution for skin prep, a large sterile sheet to cover the areas of the patient that were not prepped, and hand hygiene, mask, head covering, and sterile gown for performing radiologist and scrub technologist. The skin was anesthetized with 2% lidocaine.Ultrasound evaluation showed a patent and compressible right internal jugular vein, which was punctured under direct real-time ultrasound guidance with a micropuncture needle. An ultrasound image was saved to PACS. A 0.018 inch wire was placed through the needle into the right atrium. A 4 Mozambican micropuncture sheath was placed. A subcutaneous tunnel was created in the right anterior chest wall by blunt dissection. A 19 cm tip to cuff 14.5 Mozambican catheter was brought through the tunnel. The vessel tract was serially dilated over a J-wire. A peel-away sheath was placed in the right IJ vein and the catheter was advanced through the sheath, with its distal tip terminating at the cavoatrial junction. The peel-away sheath was removed. The ports were flushed and aspirated easily following placement. The catheter was sutured to the skin to secure its placement. The small jugular incision site was closed using Dermabond. A resembled first ray suture was placed at the catheter exit site. Vital signs were monitored throughout the procedure by a nurse, and remained stable. The patient tolerated the procedure well and left the department in the same condition. Results: Spot radiograph of the chest demonstrates the new dialysis catheter to lie in the expected position with its tip overlying the cavoatrial junction. Impression: Successful, uncomplicated placement of a right internal jugular tunneled dialysis catheter using sonographic and fluoroscopic guidance and conscious sedation. Signed by: Dr. Jose Ramirez MD on 09/15/2019 1:03 PM
--- NOTE | 2019-09-15 13:10 | NUR ---
Pulmonary Medicine DATE 09/15/2019 SUBJECTIVE: no respiratory distress she finally consented to HD startup. pt with successful HD line in today am no complications noted so far, no hematoma REVIEW OF SYSTEMS: no bleeding, no chest pain PHYSICAL EXAMINATION: VITAL SIGNS: vital signs noted, reviewed per the chart record. GENERAL: no acute distress, alert and calm. HEENT: Normocephalic and atraumatic. NECK: Supple. Throat midline. LUNGS: Bilateral air entry, decreased breath sounds bilaterally, some rales. CARDIOVASCULAR: S1 and S2. No murmurs, rubs, or gallops. ABDOMEN: Soft and nontender. EXTREMITIES: No clubbing. No cyanosis. There is only trace edema. INTEGUMENT: No rash. No purpura. LABORATORY DATA: k 4.7, bun 53, cr 4.29 wbc 11, hct 25, plt 326 IMPRESSION AND PLAN: 1. Pulmonary edema. 2. Small to moderate bilateral pleural effusions. 3. Chronic kidney disease, stage 4-5. 4. Acute kidney injury. 5. Hypertension. 6. Hypothyroidism. 7. Peripheral neuropathy. 8. Thyroid disorder. Repeat intermittent chest x-ray to ensure improvement Assess effusions pleural, patient may or may not require outpatient thoracentesis Home oxygen evaluation prior to discharge SLURRY CONTROL TENDER per renal expert. Negative fluid balance as tolerated. Thank you very much, Dr. Ureña, for this consult. Please call for questions.
--- NOTE | 2019-09-15 13:27 | Progress Note ---
DATE: 09/15/2019 Nephrology Progress Note. SUBJECTIVE: The patient received her tunneled hemodialysis catheter this morning. Denies any shortness of breath, nausea, or vomiting. OBJECTIVE: GENERAL: Appears comfortable, sitting up in bed. VITAL SIGNS: Stable, blood pressure 128/73, afebrile. NECK: Positive JVP. CHEST: Symmetrical breathing. CARDIOVASCULAR: Unchanged. ABDOMEN: Nondistended. EXTREMITIES: Without pitting edema. NEUROLOGICAL: She is alert and oriented x3. LABORATORY DATA: Hemoglobin 7.6, BUN 69, creatinine 6, bicarb 22, potassium 4.4, sodium 135, total calcium 7.7. ASSESSMENT AND PLAN: 1. End-stage kidney disease, we will start hemodialysis today. 2. Anemia secondary to chronic kidney disease. 3. Blood pressure, controlled without medications. Discussed with geneticist. Plans are underway to arrange for a chronic dialysis chair in [facility]. Lucho Bae MD [facility]/MARTINEL /[id number]
--- NOTE | 2019-09-15 13:30 | NUR ---
[facility] CALLED WITH ORDERS FOR DIALYSIS.
--- NOTE | 2019-09-15 13:32 | Progress Note ---
DATE: 09/15/2019 Medicine Progress Note SUBJECTIVE: The patient agreed to a tunneled dialysis catheter, which was placed today. HD will be performed per Nephrology. PHYSICAL EXAMINATION: VITAL SIGNS: Temperature 97.4, pulse 71, respiratory rate is 17, blood pressure 120/73, and pulse ox 100% on room air. GENERAL: Not in acute distress. Alert and oriented x3. Cooperative on examination. HEENT: Head; normocephalic, atraumatic. Eyes; pupils are equal, round, and reactive to light bilaterally. Extraocular movements intact bilaterally. Throat; no evidence of erythema or exudates in the posterior pharynx. Has poor dentition. NECK: Supple. Good range of motion. PULMONARY: Clear to auscultation bilaterally. No wheezing, no rales, no rhonchi, no crackles appreciated. CARDIOVASCULAR: Positive S1 and S2. No murmurs, rubs, or gallops appreciated. ABDOMEN: Soft, nondistended, and nontender to palpation. Bowel sounds present. MUSCULOSKELETAL: Strength is 5/5 throughout. No evidence of any muscle deficits on examination. No weakness appreciated. NEUROLOGIC: Cranial nerves 2 through 12 grossly intact. No evidence of any neurological deficits on exam. SKIN: Intact. Warm to touch. Good cap refill. PSYCHIATRIC: Normal affect and mood. EXTREMITIES: No edema. Good range of motion throughout. LABORATORY DATA: Show white count 5.6, hemoglobin 7.6, hematocrit is 23.5, and platelets of 316. Chemistry; sodium 135, potassium 4.4, chloride 100, bicarb 22, anion gap of 17, BUN is 69, creatinine is 6, and calcium is 7.7. MICROBIOLOGY: None. IMAGING STUDIES: Nothing new. IMPRESSION: 1. Acute respiratory distress secondary to pulmonary edema from underlying end-stage renal disease. 2. End-stage renal disease, now on dialysis with a tunneled catheter placement on 09/15/2019. 3. Anemia of end-stage renal disease. 4. Hypertension. 5. Ptb-JI-tlslrbbny myocardial infarction, likely type 2 myocardial infarction-she will need an ischemic workup, probably be deferred as an outpatient, which I will defer to Cardiology. PLAN: At this time, we will defer IV antibiotics to ID. I do not feel the patient has pneumonia. I have also discussed this with ID and Pulmonary, and they agree with my plan of care as well. She does have a tunneled catheter placed today by IR. I discussed this with Nephrology. She will be receiving dialysis today. We will arrange for case management to start up HD unit as an outpatient at [facility]. Otherwise, she is doing well with no complaints. We will get a.m. labs. We will defer cardiac evaluation by Cardiology either for them to do anything now or as an outpatient. MD ESTER Guerra/NORBERTO /[id number]
[2019-09-15] MEDS ORDERED: SODIUM CHLORIDE 0.9% 1000ML 2,000 ML ONE (15:53)
[2019-09-15] MEDS ORDERED: MANNITOL 25% 12.5GM/50ML 100 ML ONE (16:40)
[2019-09-15] MEDS ORDERED: HEPARIN SOD (PORCINE) 1000 UNIT/ML SDV IV PRN (16:45)
[2019-09-15] MEDS ORDERED: MANNITOL 25% 12.5GM/50 ML VIAL IV PRN (16:45)
[2019-09-15] MEDS ORDERED: SODIUM CHLORIDE 0.9% 1000ML 2,000 ML IV PRN (16:45)
--- NOTE | 2019-09-15 19:57 | NUR ---
RECEIVED BEDSIDE SHIFT REPORT FROM PREVIOUS NURSE. CALL LIGHT WITHIN REACH. PATIENT SITTING IN BED GETTING DIALYSIS. PATIENT IN NO PAIN OR DISTRESS. Addendum: 09/15/19 at 1958 by Sandra Marie RN TIME WAS 1910
[2019-09-16] VITALS (8 sets, daily range): BP systolic 124–145; BP diastolic 67–84
--- NOTE | 2019-09-16 03:27 | NUR ---
DID HOURLY ROUNDING. PATIENT ASLEEP IN BED. CALL LIGHT WITHIN REACH.
[2019-09-16 05:49] LABS: BASOPHILS % 0.6 % (0.0-1.0); EOSINOPHILS # (AUTO) 0.4 (0.0-0.4); HEMATOCRIT 25.3 % (34.2-44.1); HEMOGLOBIN 8.3 g/dL (12.0-16.0); LYMPHOCYTES # (AUTO) 1.5 (1.0-3.2); LYMPHOCYTES % 22.8 % (18.0-39.1); MEAN CORPUSCULAR HEMOGLOBIN 29.3 pg (28-32); MEAN CORPUSCULAR HGB CONC 32.8 g/dL (31-35); MEAN CORPUSCULAR VOLUME 89.4 fL (81-99); MONOCYTES # (AUTO) 0.8 (0.2-0.8); MONOCYTES % 12.2 % (4.4-11.3); NEUTROPHILS # (AUTO) 3.7 (2.1-6.9); NEUTROPHILS % 58.1 % (38.7-80.0); PLATELET COUNT 320 x10e3/uL (140-360); RED BLOOD COUNT 2.83 x10e6/uL (3.6-5.1); RED CELL DISTRIBUTION WIDTH 12.3 % (11.7-14.4)
[2019-09-16] MEDS: CEFTRIAXONE SOD 1 GM/NS 50 ML 50 ML IV SCH (06:00)
[2019-09-16] MEDS: LEVOTHYROXINE SODIUM 112 MCG TAB PO SCH (06:00)
[2019-09-16 06:05] LABS: ANION GAP 14.2 mmol/L (8-16); CREATININE, SERUM 3.99 mg/dL (0.57-1.11); POTASSIUM 4.2 mmol/L (3.5-5.1)
--- NOTE | 2019-09-16 07:00 | NUR ---
BESIDE SHIFT REPORT RECEIVED FROM WELLNESS TRAINER RN. PT DENIES NEEDS AT THIS TIME.
--- NOTE | 2019-09-16 07:06 | NUR ---
GAVE BEDSIDE SHIFT REPORT TO ONCOMING NURSE. CALL LIGHT WITHIN REACH. PATIENT IN BED.
[2019-09-16] MEDS: INSULIN LISPRO 100 UNIT/1 ML 3ML VIAL SQ SCH ×5 (07:30→21:31)
[2019-09-16] MEDS: ASPIRIN 325 MG TAB PO SCH (08:54)
[2019-09-16] MEDS: HEPARIN SOD (PORCINE) 5,000 UNIT/ML VIAL SC SCH ×2 (08:55→21:30)
[2019-09-16] MEDS: CHOLECALCIFEROL 1,000 UNIT TAB PO SCH (08:55)
[2019-09-16] MEDS: GABAPENTIN 100 MG CAP PO SCH ×4 (08:55→21:30)
[2019-09-16] MEDS: PANTOPRAZOLE SOD 40 MG TABEC PO SCH (08:55)
--- NOTE | 2019-09-16 10:20 | NUR ---
FAXED DIALYSIS NOTES FROM LAST NIGHT TO [facility] ADMISSION LINE
--- NOTE | 2019-09-16 11:06 | Progress Note ---
DATE: SUBJECTIVE: The patient is seen and evaluated, and discussed with the staff. Dialysis is currently in her room and planning to take out about 2.2 L. REVIEW OF SYSTEMS: The patient is awake and alert. No acute distress. Sleepy, alert in bed. No nausea. No vomiting. No fever. No chills. No chest pain. No shortness of breath. No headache. No cough. No rash. PHYSICAL EXAMINATION: VITAL SIGNS: Temperature is 98.3, pulse is 76, respirations 20, and blood pressure 144/84. MEDICATIONS: Medication list reviewed. As far as Infectious Disease point of view, the patient is on Rocephin. LABORATORY STUDIES: White count of 6.37, hemoglobin 8.3, platelet 320. Sodium 135, potassium 4.2, creatinine 3.99. The patient currently getting hemodialysis. MICROBIOLOGY: Blood culture and urine culture on 09/11 negative. RADIOLOGY STUDIES: No new radiology studies available. ASSESSMENT AND PLAN: This is a 69-year-old female, admitted with: 1. Shortness of breath with concern of pulmonary edema. 2. Bilateral pleural effusion. 3. Chronic renal disease. The patient is receiving her second dose of dialysis today. 4. Recent history of pneumonia. 5. Hypertension. 6. Peripheral neuropathy. 7. Hypothyroidism. 8. Thyroid disorder. 9. Debility. 10. Currently on Rocephin, please refer to chart for more information. Discussed with Dr. Armstrong in details. Dictated by Marlo Schaffer PA-C (Al) Porfirio Armstrong MD /MODL /[id number]
--- NOTE | 2019-09-16 12:23 | NUR ---
RECEIVED NEW COVER SHEET FROM [facility] IN EMAIL, COMPLETED AND FAXED BACK
--- NOTE | 2019-09-16 12:46 | Progress Note ---
DATE: 09/16/2019 Nephrology Followup Progress Note SUBJECTIVE: The patient is seen on hemodialysis. Tolerated first dialysis yesterday without problem. Looks comfortable today on dialysis. Blood flow is up to 250 mL/minute, dialysate flow 500 mL/minute. Dialysate is 2 mEq/L of potassium and 2.5 calcium. Target ultrafiltration is 2 L net. Labs from this morning noted. We will continue dialysis tomorrow. The patient is pending outpatient dialysis placement at [facility]. MD GIORGIO Wong/MARTINEL /[id number]
--- NOTE | 2019-09-16 13:11 | NUR ---
Pulmonary Medicine DATE 09/16/2019 SUBJECTIVE: HD 2 L out yesterday, 2.5 hrs HD goal 2.5 L today, 3 hrs expected no dizziness no SOB REVIEW OF SYSTEMS: no bleeding, no chest pain PHYSICAL EXAMINATION: VITAL SIGNS: vital signs noted, reviewed per the chart record. GENERAL: no acute distress, alert and calm. HEENT: Normocephalic and atraumatic. NECK: Supple. Throat midline. LUNGS: Bilateral air entry, decreased breath sounds bilaterally, some rales. CARDIOVASCULAR: S1 and S2. No murmurs, rubs, or gallops. ABDOMEN: Soft and nontender. EXTREMITIES: No clubbing. No cyanosis. There is only trace edema. INTEGUMENT: No rash. No purpura. LABORATORY DATA: ;reviewed per EMR IMPRESSION AND PLAN: 1. Pulmonary edema. 2. Small to moderate bilateral pleural effusions. 3. Chronic kidney disease, stage 4-5. 4. Acute kidney injury. 5. Hypertension. 6. Hypothyroidism. 7. Peripheral neuropathy. 8. Thyroid disorder. 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 Negative fluid balance as tolerated. Thank you very much, Dr. Ureña, for this consult. Please call for questions.
--- NOTE | 2019-09-16 15:16 | Progress Note ---
DATE: 09/16/2019 Medicine Progress Note SUBJECTIVE: The patient is doing well today. She had her second hemodialysis treatment. She states she is breathing much better now. PHYSICAL EXAMINATION: VITAL SIGNS: Temperature is 98.3, pulse 76, respiratory rate is 20, blood pressure 144/84, and pulse ox 100% on room air. GENERAL: Not in acute distress. Alert and oriented x3. Cooperative on examination. HEENT: Head; normocephalic, atraumatic. Eyes; pupils are equal, round, and reactive to light bilaterally. Extraocular movements intact bilaterally. Throat; no evidence of erythema or exudates in the posterior pharynx. Has poor dentition. NECK: Supple. Good range of motion. PULMONARY: Clear to auscultation bilaterally. No wheezing, no rales, no rhonchi, no crackles appreciated. CARDIOVASCULAR: Positive S1 and S2. No murmurs, rubs, or gallops appreciated. ABDOMEN: Soft, nondistended, and nontender to palpation. Bowel sounds present. MUSCULOSKELETAL: Strength is 5/5 throughout. No evidence of any muscle deficits on examination. No weakness appreciated. NEUROLOGIC: Cranial nerves 2 through 12 grossly intact. No evidence of any neurological deficits on exam. SKIN: Intact. Warm to touch. Good cap refill. PSYCHIATRIC: Normal affect and mood. EXTREMITIES: No edema. Good range of motion throughout. LABORATORY DATA: Show white count 6.3, hemoglobin 8.3, hematocrit is 25, and platelets of 320. Chemistry; sodium 135, potassium 4.2, chloride 99, bicarb 26, anion gap of 14, BUN 36, creatinine is 3.99, glucose 84, and calcium is 8. MICROBIOLOGY: All cultures were negative. IMAGING STUDIES: None. IMPRESSION: 1. Acute respiratory distress secondary to pulmonary edema from end-stage renal disease. 2. End-stage renal disease, on hemodialysis, now tunneled catheter placement on 09/15/2019. 3. Anemia of end-stage renal disease. 4. Hypertension. 5. Wqy-KJ-zdpxnjhil myocardial infarction, likely secondary to type 2 myocardial infarction-discussed with Cardiology, likely outpatient further workup. PLAN: At this time, no antibiotics were needed. ID is following. HD treatment #2 is today. Awaiting for an outpatient dialysis chair time and schedule. As per Cardiology, I will defer left heart catheterization to them, but it can be performed as an outpatient if they agree. MD ESTER Guerra/NORBERTO /[id number]
--- NOTE | 2019-09-16 19:14 | NUR ---
RECEIVED REPORT FROM PREVIOUS NURSE. CALL LIGHT WITHIN REACH. PATIENT IN BED.
[2019-09-17] VITALS (9 sets, daily range): BP systolic 124–155; BP diastolic 66–82
--- NOTE | 2019-09-17 03:00 | NUR ---
DID HOURLY ROUNDING. PATIENT ASLEEP IN BED.
[2019-09-17] MEDS: LEVOTHYROXINE SODIUM 112 MCG TAB PO SCH (04:24)
--- NOTE | 2019-09-17 07:00 | NUR ---
received bedside report. pt is sleeping, no s/s of distress. call light within reach
--- NOTE | 2019-09-17 07:05 | NUR ---
GAVE BEDSIDE SHIFT REPORT TO ONCOMING NURSE. CALL LIGHT WITHIN REACH. PATIENT IN BED.
[2019-09-17] MEDS: INSULIN LISPRO 100 UNIT/1 ML 3ML VIAL SQ SCH ×4 (07:30→20:57)
[2019-09-17] MEDS: CHOLECALCIFEROL 1,000 UNIT TAB PO SCH (09:00)
[2019-09-17] MEDS: GABAPENTIN 100 MG CAP PO SCH ×3 (09:00→21:00)
[2019-09-17] MEDS: ASPIRIN 325 MG TAB PO SCH (09:00)
[2019-09-17] MEDS: PANTOPRAZOLE SOD 40 MG TABEC PO SCH (09:00)
[2019-09-17] MEDS: HEPARIN SOD (PORCINE) 5,000 UNIT/ML VIAL SC SCH ×2 (09:29→21:00)
--- NOTE | 2019-09-17 09:39 | Progress Note ---
DATE: 09/17/2019 Nephrology followup note on. SUBJECTIVE: The patient has no specific complaints. Tolerated hemodialysis well on past 2 days. OBJECTIVE: GENERAL: Appears comfortable. VITAL SIGNS: Stable. NECK: Supple without jugular venous distention. CARDIOVASCULAR: Regular rate and rhythm. PULMONARY: Symmetrical breathing with no use of accessory muscles. ABDOMEN: Soft and nondistended. EXTREMITIES: Without pitting edema or cyanosis. NEUROLOGICAL: Alert and oriented x3. LABS: None from today. IMPRESSION: 1. End-stage kidney disease, started on hemodialysis through a tunneled dialysis catheter. Tolerating so far. We will dialyze for the third time today, while awaiting placement in outpatient [facility]. 2. Anemia, secondary to chronic kidney disease. She will be started on GRACE and iron per dialysis unit protocol. 3. Blood pressure, controlled without antihypertensives. MD GIORGIO Wong/MARTINEL /[id number]
--- NOTE | 2019-09-17 10:50 | Progress Note ---
DATE: SUBJECTIVE: The patient is seen and evaluated. REVIEW OF SYSTEMS: No nausea, vomiting, fever, chills, chest pain, shortness of breath, headache, dysuria, polyuria, or rash. PHYSICAL EXAMINATION: VITAL SIGNS: Temperature is 96.3, pulse is 86, respirations 16, and blood pressure 129/66. GENERAL: Alert and oriented, no acute distress. CV: S1 and S2. CHEST: Equal expansion. Clear to auscultation. No acute distress. ABDOMEN: Soft and nontender. No distention. HEENT: Moist. No pallor. No JVD. MEDICATIONS: Reviewed. Antibiotics stopped yesterday. The patient is currently off the antibiotics. LABORATORY STUDIES: No new CBC or BMP. MICROBIOLOGY: No new microbiology studies available. RADIOLOGY: No new radiology studies available. ASSESSMENT AND PLAN: 1. Shortness of breath with concern of pulmonary edema/fluid overload. 2. Bilateral pleural effusion. 3. Chronic renal insufficiency, started on dialysis. 4. Hypertension. 5. Peripheral neuropathy. 6. Hypothyroidism. 7. Thyroid disorder. 8. Debility-multifactorial. 9. History of pneumonia. 10. Status post Rocephin. The patient wants to go home. Discussed with Dr. Armstrong in details. Please refer to chart for more information. Dictated by Marlo Schaffer PA-C (Al) Porfirio Armstrong MD /MARTINEL /[id number]
--- NOTE | 2019-09-17 11:24 | NUR ---
blood was collected by custom shoe designer and maker for CBC and BMP and was taken to lab
[2019-09-17 11:30] LABS: BASOPHILS # (AUTO) 0.1 (0.0-0.1); BASOPHILS % 0.8 % (0.0-1.0); EOSINOPHILS # (AUTO) 0.5 (0.0-0.4); EOSINOPHILS % 6.4 % (0.0-6.0); HEMATOCRIT 27.6 % (34.2-44.1); LYMPHOCYTES % 27.1 % (18.0-39.1); MEAN CORPUSCULAR HGB CONC 32.6 g/dL (31-35); MONOCYTES # (AUTO) 0.9 (0.2-0.8); MONOCYTES % 12.4 % (4.4-11.3); NEUTROPHILS # (AUTO) 3.9 (2.1-6.9); NEUTROPHILS % 52.9 % (38.7-80.0); PLATELET COUNT 346 x10e3/uL (140-360); RED CELL DISTRIBUTION WIDTH 12.4 % (11.7-14.4)
[2019-09-17 11:47] LABS: ANION GAP 13.1 mmol/L (8-16); CALCIUM 8.6 mg/dL (8.4-10.2); CREATININE, SERUM 3.15 mg/dL (0.57-1.11); POTASSIUM 4.1 mmol/L (3.5-5.1)
--- NOTE | 2019-09-17 19:11 | NUR ---
Pulmonary Medicine DATE 09/17/2019 SUBJECTIVE: hd 2 L/ goal negative today 3 hrs goal walked hayes yesterday no dizziness RA fio2 REVIEW OF SYSTEMS: no bleeding, no chest pain PHYSICAL EXAMINATION: VITAL SIGNS: vital signs noted, reviewed per the chart record. GENERAL: no acute distress, alert and calm. HEENT: Normocephalic and atraumatic. NECK: Supple. Throat midline. LUNGS: Bilateral air entry, decreased breath sounds bilaterally, some rales. CARDIOVASCULAR: S1 and S2. No murmurs, rubs, or gallops. ABDOMEN: Soft and nontender. EXTREMITIES: No clubbing. No cyanosis. no edema. INTEGUMENT: No rash. No purpura. LABORATORY DATA: ;reviewed per EMR IMPRESSION AND PLAN: 1. Pulmonary edema. 2. Small to moderate bilateral pleural effusions. 3. Chronic kidney disease, stage 4-5. 4. Acute kidney injury. 5. Hypertension. 6. Hypothyroidism. 7. Peripheral neuropathy. 8. Thyroid disorder. 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 Negative fluid balance as tolerated. Thank you very much, Dr. Ureña, for this consult. Please call for questions.
--- NOTE | 2019-09-17 21:27 | Progress Note ---
DATE: 09/17/2019 Medicine Progress Note SUBJECTIVE: The patient is doing well today with no complaints. The patient did have her 3rd hemodialysis treatment today. PHYSICAL EXAMINATION: VITAL SIGNS: Temperature is 97.2, pulse is 80, respirations 18, blood pressure 155/82, and pulse ox 100% on room air. GENERAL: In acute distress. Alert and oriented x3. Cooperative on examination. HEENT: Head is normocephalic and atraumatic. Eyes; pupils are equal, round, and reactive to light. Extraocular muscles are intact bilaterally. Throat; no evidence of erythema, exudates in the posterior pharynx. Has poor dentition. NECK: Supple. Good range of motion. PULMONARY: Clear to auscultation bilaterally. No wheezing, rales, or rhonchi. No crackles appreciated. CARDIOVASCULAR: Positive S1 and S2. No murmurs, rubs, or gallops appreciated. ABDOMEN: Soft, nondistended, nontender to palpation. Bowel sounds present. MUSCULOSKELETAL: Strength is 5/5 throughout. No evidence of any muscle deficits on examination. No weakness appreciated. NEUROLOGIC: Cranial nerves 2 through 12 are grossly intact. No evidence of any neurological deficits on exam. SKIN: Intact, warm to touch. Good capillary refill. PSYCHIATRIC: Normal affect and mood. EXTREMITIES: No edema. Good range of motion throughout. LABORATORY FINDINGS: White count 7.3, hemoglobin 9, hematocrit is 28, and platelets of 346. Chemistry; sodium 134, potassium 4.1, chloride 97, bicarb 20, anion gap of 13, BUN is 18, creatinine is 3.1, the glucose is 84. Lactic acid is 1.3. Urinalysis noted. MICROBIOLOGY: All cultures were negative. IMPRESSION: 1. Acute respiratory distress secondary to pulmonary edema from end-stage renal disease, now improved. 2. End-stage renal disease, on dialysis with a with a tunneled right chest wall catheter 09/15/2019. 3. Anemia of end-stage renal disease. 4. Hypertension. 5. NSTEMI, likely secondary to type 2 DC - I discussed this with Cardiology and he would like to do an outpatient workup for her at a later date. PLAN: Plan at this time, the patient is doing well. No antibiotics are needed. ID is following. HD treatment #3 today. Awaiting for a chair time for dialysis as an outpatient. Once that has been arranged, she can be discharged to home. I discussed this case again with Cardiology and elected for a left heart catheterization and further ischemic workup as an outpatient. We discussed this with the patient. She verbalized understanding as well. MD ESTER Guerra/NORBERTO /[id number]
--- NOTE | 2019-09-17 22:55 | Diagnostic Imaging Report ---
EXAMINATION: CHEST SINGLE (PORTABLE) INDICATION: ^effsuions ^[id number] ^[id number] COMPARISON: 09/14/2019 FINDINGS: AP view TUBES and LINES: Right IJ tunneled hemodialysis catheter. LUNGS: Bibasilar atelectasis. No new consolidation. PLEURA: Unchanged small bilateral pleural effusions. HEART AND MEDIASTINUM: The cardiac silhouette is stable. Unchanged pulmonary venous congestion. BONES AND SOFT TISSUES: No acute osseous lesion. Soft tissues are unremarkable. UPPER ABDOMEN: No free air under the diaphragm. IMPRESSION: Unchanged central pulmonary venous congestion with bilateral pleural effusions. Signed by: Siva Tracy MD on 09/17/2019 10:52 PM
[2019-09-18 04:47] VITALS: BP 148/80
[2019-09-18] MEDS: LEVOTHYROXINE SODIUM 112 MCG TAB PO SCH (05:45)
[2019-09-18] MEDS: INSULIN LISPRO 100 UNIT/1 ML 3ML VIAL SQ SCH ×3 (07:30→16:30)
[2019-09-18 07:58] VITALS: BP 158/77
[2019-09-18 08:00] VITALS: BP 158/77
[2019-09-18] MEDS: CHOLECALCIFEROL 1,000 UNIT TAB PO SCH (09:00)
[2019-09-18] MEDS: GABAPENTIN 100 MG CAP PO SCH ×2 (09:00→15:00)
[2019-09-18] MEDS: ASPIRIN 325 MG TAB PO SCH (09:00)
[2019-09-18] MEDS: PANTOPRAZOLE SOD 40 MG TABEC PO SCH (09:00)
[2019-09-18] MEDS: HEPARIN SOD (PORCINE) 5,000 UNIT/ML VIAL SC SCH (11:20)
--- NOTE | 2019-09-18 11:32 | NUR ---
GOT LETTER FOR ACCEPTANCE FOR DIALYSIS CHAIR FOR , AND [facility] AT 2PM, GAVE COPY OF LETTER TO PT AND PUT ONE IN CHART.
--- NOTE | 2019-09-18 11:43 | Progress Note ---
DATE: SUBJECTIVE: The patient is seen and evaluated. Available labs and notes reviewed. Discussed with Dr. Armstrong in details. REVIEW OF SYSTEMS: No nausea, no vomiting, no fever, no chills. No chest pain. No shortness of breath. No headache. No dysuria. No polyuria. No rash. No cough. PHYSICAL EXAMINATION: VITAL SIGNS: Temperature 96.7, pulse is 78, respiration 20, blood pressure 158/77. GENERAL: Alert and oriented, sitting in a chair. No acute distress. CV: S1, S2. CHEST: Equal expansion, clear to auscultation. No acute distress. ABDOMEN: Soft and nontender. No distention. HEENT: Moist. No pallor. No JVD MEDICATIONS: Medication list reviewed. As far as Infectious Disease point of view, patient is status post IV antibiotics, Rocephin. LABORATORY STUDIES: The patient is on dialysis. No new CBC or BMP available from today. MICROBIOLOGY: Blood culture and urine culture negative on 09/11. RADIOLOGY STUDIES: No new radiology studies available. Had a chest x-ray yesterday showing unchanged central pulmonary venous congestion with bilateral pleural effusion. ASSESSMENT AND PLAN: 1. Shortness of breath/concern of pulmonary edema/fluid overload. The patient is started on dialysis, overall improved significantly. 2. Bilateral pleural effusion. 3. Chronic renal insufficiency-started on dialysis. 4. Hypertension. 5. Hypothyroidism. 6. Thyroid disorder. 7. Peripheral neuropathy. 8. History of pneumonia-status post IV antibiotics. 9. Debility-continue with PT/OT. 10. Continue monitoring the patient off the antibiotics. Continued PT/OT. Diet renal diet. Currently monitor patient clinically. Follow up with the labs. Discussed with Dr. Armstrong in details. Please refer to chart for more information. Dictated by Marlo Schaffer PA-C (Al) Porfirio Armstrong MD /MODL /[id number]
[2019-09-18 12:00] VITALS: BP 140/74
--- NOTE | 2019-09-18 12:29 | Progress Note ---
DATE: 09/18/2019 Nephrology Progress Note SUBJECTIVE: The patient is asymptomatic. Did complete her 3rd hemodialysis treatment yesterday and tolerated well. OBJECTIVE: GENERAL: Appears comfortable sitting up in a chair. VITAL SIGNS: Stable. Blood pressure 158/77, temperature afebrile. Respirations 20 per minute. NECK: Supple without jugular venous distention. CHEST: Bilateral air entry. CARDIOVASCULAR: Shows regular rate, rhythm. ABDOMEN: Nondistended. EXTREMITIES: Without pitting edema or cyanosis. NEUROLOGICAL: She is alert and oriented. LABORATORY DATA: None from today. IMPRESSION: 1. End-stage kidney disease, started on maintenance hemodialysis. Last treatment yesterday. Right IJ tunneled dialysis catheter working well. Awaiting placement at [facility] for long-term outpatient dialysis. 2. Hypertension, we will monitor on current medication, which is p.r.n. hydralazine. 3. Anemia, secondary to chronic kidney disease. Monitor for now. 4. Pulmonary edema, resolved. Lucho Bae MD [facility]/MODL /[id number]
--- NOTE | 2019-09-18 14:12 | NUR ---
per Dr. Ureña's request, Dr. Bea was paged for discharge clearance
--- NOTE | 2019-09-18 15:03 | NUR ---
no call back from Dr. Bae, paged second time
--- NOTE | 2019-09-18 15:51 | NUR ---
Pulmonary Medicine DATE 09/18/2019 SUBJECTIVE: no HD today had HD ysterday, CXR is stable. mainly SMALL to moderate pleural effusions, but lean on small walked, not dizzy RA fio2 REVIEW OF SYSTEMS: no bleeding, no chest pain PHYSICAL EXAMINATION: VITAL SIGNS: vital signs noted, reviewed per the chart record. GENERAL: no acute distress, alert and calm. HEENT: Normocephalic and atraumatic. NECK: Supple. Throat midline. LUNGS: Bilateral air entry, decreased breath sounds bilaterally, some rales. CARDIOVASCULAR: S1 and S2. No murmurs, rubs, or gallops. ABDOMEN: Soft and nontender. EXTREMITIES: No clubbing. No cyanosis. no edema. INTEGUMENT: No rash. No purpura. LABORATORY DATA: no new updates IMPRESSION AND PLAN: 1. Pulmonary edema. 2. Small to moderate bilateral pleural effusions. 3. Chronic kidney disease, stage 4-5. 4. Acute kidney injury. 5. Hypertension. 6. Hypothyroidism. 7. Peripheral neuropathy. 8. Thyroid disorder. Repeat intermittent chest x-ray to ensure improvement --probably outpatient; she may or may not require outpatient thoracentesis Home oxygen evaluation prior to discharge [employer] per renal expert. Negative fluid balance as tolerated. Thank you very much, Dr. Ureña, for this consult. Please call for questions.
[2019-09-18 16:00] VITALS: BP 164/85
[2019-09-18 17:44] LABS: ANION GAP 15.1 mmol/L (8-16); CALCIUM 8.6 mg/dL (8.4-10.2); CREATININE, SERUM 2.85 mg/dL (0.57-1.11); POTASSIUM 4.1 mmol/L (3.5-5.1)
--- NOTE | 2019-09-18 17:49 | NUR ---
lab results came back and notified Dr. Ureña of potassium level. approved pt to be discharged
--- NOTE | 2019-09-19 02:16 | Discharge Summary ---
FINAL DISCHARGE DIAGNOSES: 1. Acute respiratory distress with pulmonary edema secondary to chronic kidney disease, now end-stage renal disease with much improved. 2. End-stage renal disease, on hemodialysis with a tunneled catheter placement in right chest wall on 09/15/2019. 3. Anemia of end-stage renal disease. 4. Hypertension. 5. Ijy-VR-rdtiqbovv myocardial infarction, likely to be type 2 myocardial infarction-discussed with Cardiology, who recommends outpatient followup in his office with workup needed at a later day once the patient is much more stable on dialysis. CONSULTANTS: Cardiology, Nephrology, Pulmonary, and Infectious Disease. VITAL SIGNS: Temperature is 96.5, pulse 87, respiratory rate is 20 blood pressure 140/74, pulse ox 99% on room air. LABORATORY FINDINGS: Show white count 7.3, hemoglobin 9, hematocrit 27.6, and platelets of 346. Coagulation; PT 14, INR 1.1, PTT 43.7. Chemistry; sodium 131, potassium 4.1, chloride 96, bicarb 24, anion gap of 15, BUN is 16, creatinine is 2.85, glucose is 151, calcium is 8.6, phosphorus is 7.2, magnesium is 1.9, total bilirubin is 0.4, AST is 17, ALT is 10. Troponins were slightly elevated, last one 0.774. BNP is 2759. Albumin was 2.5. Urinalysis negative. SEROLOGIES: Hepatitis B was negative. Coronavirus PCR was negative. IMAGING STUDIES: Chest x-ray on admission 09/12/2019, shows some cardiomegaly, pulmonary vascular congestion, some airspace opacity noted. Chest x-ray on 09/17/2019, shows some evidence of pulmonary venous congestion. HOSPITAL COURSE: This is a 69-year-old female, very noncompliant with her medical care, noncompliant with followup with any physician, comes into the ED with shortness of breath, cough, and congestion. The patient had similar finding several weeks ago here in the hospital secondary to volume overload, refusing hemodialysis. While here, imaging studies consistent with pulmonary edema. The patient was checked for coronavirus PCR, prompting Pulmonary and ID consultation. Her coronavirus PCR was negative. It was felt by ID that the patient does not have pneumonia and no antibiotics were needed. As per Pulmonary, he felt the underlying etiology also was from pulmonary edema, not pneumonia, and recommended clearly hemodialysis. Cardiology and Nephrology were consulted. As per Cardiology, the slight elevation of troponin likely be type 2 MS, but they recommend an outpatient followup for an ischemic workup and evaluation at a later date once the patient is much more stable on hemodialysis. At some point, the patient may need a heart catheterization and further workup as per Cardiology. I did discuss this with them [id number] and agreed to follow up as an outpatient in about least 2 to 3 weeks for further ischemic workup. As per Nephrology, the patient agreed to a tunneled dialysis catheter and 3 treatments of HD was performed. She did extremely well. Her shortness of breath resolved. She was off oxygen. She was tolerating treatment well with no issues. Hemodialysis was setup on 09/21/2019 at [facility] scheduled, phone number and address were provided to the patient to follow up very closely. On discharge, her labs were stable. She has been cleared for discharge by all consultants. On the day of discharge, vital signs were stable. Labs reviewed and stable. The patient is seen and evaluated and examined thoroughly on the day of discharge with no other complaints. The patient verbalized understanding and agrees to plan of care to follow up as an outpatient with PCP in 1 week and her normal hemodialysis chair timing scheduled as well as the rest of the consultants in about 2 weeks' time, especially Cardiology, in which I discussed this with them very thoroughly. They verbalized understanding. MEDICATIONS: See med reconciliation form. DISPOSITION: Home. CONDITION: Stable. DIET: Heart healthy. In the event of any worsening symptoms, the patient was advised to come back to the ED for further evaluation. Discharge summary took greater than 35 minutes. MD ESTER Guerra/NORBERTO /[id number]
== END 2019-09-18 18:17 | disposition home or self-care (01) | DRG 673 ==
LOC: ER 12:47 → ERHOLD 15:13 → MED/SURG3 17:42
PROVIDERS: ADMIT Internal Medicine; ATTEND Internal Medicine
PROC: 5A1D70Z Performance of Urinary Filtration, Intermittent, Less than 6 Hours Per Day (ICD-10-PCS; principal; 2019-09-15)
PROC: 0JH63XZ Insertion of Tunneled Vascular Access Device into Chest Subcutaneous Tissue and Fascia, Percutaneous Approach (ICD-10-PCS; 2019-09-15)
PROC: 02HV33Z Insertion of Infusion Device into Superior Vena Cava, Percutaneous Approach (ICD-10-PCS; 2019-09-15)
DX: I12.0 Hypertensive chronic kidney disease with stage 5 chronic kidney disease or end stage renal disease (principal); I21.A1 Myocardial infarction type 2; N18.6 End stage renal disease; N17.9 Acute kidney failure, unspecified; J90 Pleural effusion, not elsewhere classified; Z99.2 Dependence on renal dialysis; D63.1 Anemia in chronic kidney disease; E03.9 Hypothyroidism, unspecified; G62.9 Polyneuropathy, unspecified; R06.03 Acute respiratory distress; Z91.19 Patient's noncompliance with other medical treatment and regimen
CPT/HCPCS: 36415; 36558; 71045; 74470; 76937; 77001; 80048; 80053; 81001; 82550; 82553; 82948; 83605; 83735; 83880; 84100; 84484; 85007; 85025; 85027; 85610; 85730; 86704; 86706; 87040; 87086; 87340; 87635; 93005; 96372; 99284; J0696; J1644; J1940; J2001; J2150; J2250; J3010; J7030; J7050; Q0162

== ENCOUNTER 2019-09-20 06:24 | Observation (INO) | payer MEDICARE, OTHER ==
[2019-09-20] VITALS (7 sets, daily range): BP systolic 101–119; BP diastolic 68–73
[~2019-09-20] VITALS: Ht 142.2 cm; Wt 60.4 kg
[2019-09-20 06:58] LABS: BASOPHILS # (AUTO) 0.1 (0.0-0.1); BASOPHILS % 0.5 % (0.0-1.0); EOSINOPHILS # (AUTO) 0.5 (0.0-0.4); EOSINOPHILS % 4.6 % (0.0-6.0); HEMATOCRIT 26.9 % (34.2-44.1); LYMPHOCYTES % 20.7 % (18.0-39.1); MEAN CORPUSCULAR HEMOGLOBIN 29.6 pg (28-32); MEAN CORPUSCULAR HGB CONC 33.5 g/dL (31-35); MEAN CORPUSCULAR VOLUME 88.5 fL (81-99); MONOCYTES # (AUTO) 0.8 (0.2-0.8); MONOCYTES % 8.4 % (4.4-11.3); NEUTROPHILS # (AUTO) 6.5 (2.1-6.9); NEUTROPHILS % 65.5 % (38.7-80.0); PLATELET COUNT 356 x10e3/uL (140-360); RED BLOOD COUNT 3.04 x10e6/uL (3.6-5.1); RED CELL DISTRIBUTION WIDTH 12.7 % (11.7-14.4)
[2019-09-20 07:15] LABS: ALBUMIN/GLOBULIN RATIO 0.7 (0.8-2.0); ANION GAP 16.4 mmol/L (8-16); CREATININE, SERUM 3.89 mg/dL (0.57-1.11); POTASSIUM 4.4 mmol/L (3.5-5.1)
[2019-09-20 07:21] LABS: CREATINE KINASE MB 3.8 ng/mL (0-5.0)
--- NOTE | 2019-09-20 07:55 | Diagnostic Imaging Report ---
Examination: Single AP view of the chest. COMPARISON: 09/17/2019 INDICATION: Shortness of breath DISCUSSION: Lungs are well-inflated. Patchy bibasilar opacities similar to prior. Interval slight increase in size of small bilateral pleural effusions. Stable cardiomediastinal contour with prominence of the central pulmonary vasculature. No acute osseous abnormalities. Right internal jugular tunneled hemodialysis catheter stable in position. IMPRESSION: Pulmonary venous congestion and slight interval increase in small bilateral pleural effusions with bibasilar airspace opacities, likely atelectasis. Signed by: Dr. Marv Zamora M.D. on 09/20/2019 7:52 AM
[2019-09-20] MEDS ORDERED: ONDANSETRON HCL INJ 2MG/ML 2ML 2 MG/ML VIAL IV PRN (08:30)
[2019-09-20] MEDS ORDERED: DEXTROSE 50% SYRINGE 50 ML IV PRN (08:30)
[2019-09-20] MEDS: ASPIRIN 81 MG ENTERIC COATED PO SCH (09:40)
[2019-09-20] MEDS ORDERED: VITAMIN D250 MCG PO (10:39)
[2019-09-20] MEDS ORDERED: AMLODIPINE BESY10 MG PO (10:41)
--- NOTE | 2019-09-20 10:48 | NUR ---
PATIENT ARRIVED ON THE UNIT PER STRETCHER AT 1000 FROM THE ER. PATIENT IS ALERT, AWAKE, AND IN STABLE CONDITION WITH NO S/S OF RESPIRATORY DISTRESS. PATIENT DENIES PAIN. TELEMETRY APPLIED. O2 APPLIED AT 2L NC. DIALYSIS PORT NOTED TO RIGHT UPPER CHEST AREA. HEALING RIGHT KNEE SCAB NOTED- OPEN TO AIR. PATIENT REFUSED THE BED ALARM TO BE APPLIED- WALKER PROVIDED TO PATIENT NEAR BEDSIDE. CALL LIGHT IS WITHIN REACH OF PATIENT, PATIENT INSTRUCTED TO CALL FOR ASSISTANCE.
[2019-09-20] MEDS: INSULIN LISPRO 100 UNIT/1 ML 3ML VIAL SQ SCH ×4 (11:29→21:00)
--- NOTE | 2019-09-20 12:48 | NUR ---
Dr. Bae was on the unit- order to consent patient for Hem[facility] Called [facility], spoke with rep Brock) on patient needing to receive dialysis tomorrow, Saturday, and Saturday. Consent signed by patient and in chart.
--- NOTE | 2019-09-20 13:56 | NUR ---
SHAN MET WITH DR. FUENTES AND DISCUSSED PLAN OF CARE. HE PLANS TO DO DIALYSIS, AND HAVE CARDIOLOGY SEE HER. PLAN IS TO DC HOME TOMORROW IF CLEARED BY CARDIOLOGY.
[2019-09-20] MEDS ORDERED: FUROSEMIDE INJ 10 MG/ML 10 ML VIAL IV NR (14:45)
--- NOTE | 2019-09-20 15:58 | Progress Note ---
DATE: 09/20/2019 Nephrology Progress Note SUBJECTIVE: The patient is readmitted to this hospital within 48 hours with complaints of shortness of breath and dull chest pain. She was just discharged Saturday evening after completing three hemodialysis treatments with plans to continue the same as outpatient the following Saturday. She also has known coronary artery disease, and a cardiac catheterization was pending. She denies any fever, chills, cough, sputum production, nausea, vomiting, diarrhea, abdominal or flank pain. Chest x-ray in the ER showed some increase in bilateral pleural effusions with some pulmonary venous congestion. (I am unable to access the actual film). OBJECTIVE: VITAL SIGNS: She appears fairly comfortable on room air oxygen at rest. Blood pressure 101/68, pulse 88 per minute, she is afebrile. Respirations 16 per minute. O2 saturation 95% on nasal cannula. HEENT: Normocephalic, atraumatic. No icterus. NECK: Supple without jugular venous distention. CHEST: Scattered crepitations at both bases, without davie crackles. No wheezing heard. CARDIOVASCULAR: Shows S1, S2 without rub or gallop. ABDOMEN: Soft, depressible, nondistended. EXTREMITIES: Have no pitting edema or cyanosis. NEUROLOGICAL: She is alert and oriented x3. LABORATORY DATA: Chest x-ray as reported above. Hemoglobin 9, white count and platelets normal. Serum chemistry shows sodium of 131, potassium 4.4, chloride 95, bicarb 24, BUN 29, creatinine 3.89, glucose 98, calcium 9. Initial troponin elevated at 4.469. Serum albumin 3. IMPRESSION: 1. End-stage kidney disease, started on maintenance hemodialysis earlier this week in hospital. Plans to continue outpatient dialysis upon discharge three times a week. 2. Sudden shortness of breath prompting this admission, increased troponin and the suddenness of her symptoms would suggest underlying ischemic event leading to her admission symptoms. Further management per primary team. 3. Anemia, secondary to chronic kidney disease. Stable hemoglobin. Continue to monitor. 4. Hypertension, monitor blood pressure and treat as needed. On no blood pressure medications at this time. 5. I will plan to dialyze her tomorrow with ultrafiltration as tolerated. This plan was discussed with the patient who agrees to proceed. She does have a tunneled dialysis catheter in the right internal jugular vein placed earlier this week. Lucho MD GIORGIO Mcdonald/NORBERTO /[id number]
[2019-09-20] MEDS: ACETAMINOPHEN 325 MG TAB PO PRN (17:50)
--- NOTE | 2019-09-20 19:22 | NUR ---
PATIENT IS IN STABLE CONDITION WITH NO S/S OF RESPIRATORY DISTRESS- NO PAIN VOICED. TELEMETRY APPLIED. 02 APPLIED AT 2L NC. PATIENT REFUSES BED ALARM. CALL LIGHT IS WITHIN REACH- PATIENT INSTRUCTED TO CALL FOR ASSISTANCE. BEDSIDE SHIFT REPORT GIVEN TO ONCOMING NURSE.
[2019-09-20] MEDS: FAMOTIDINE 20 MG/2 ML VIAL IV SCH (20:00)
[2019-09-20 20:07] LABS: CREATINE KINASE MB 3.9 ng/mL (0-5.0)
[2019-09-20] MEDS: ATORVASTATIN 20 MG TAB PO SCH (21:17)
[2019-09-20] MEDS: HEPARIN SOD (PORCINE) 5,000 UNIT/ML VIAL SC SCH (21:17)
--- NOTE | 2019-09-20 21:37 | History and Physical ---
CHIEF COMPLAINT: Shortness of breath. HISTORY OF PRESENT ILLNESS: This is a 69-year-old female, very noncompliant with her medical care, recently just discharged on Saturday, initiated on hemodialysis, has a scheduled HD on 09/21/2019, chart time and schedule has been set up for her, comes into the ED with complaints of shortness of breath. The patient was educated about her decreased oral intake in terms of her high potassium foods as well as her volume restriction, but she seems to be very noncompliant. I educated her on the prior discharge about low salt intake as well as the amount of volume intake she takes on a daily basis, but despite all that education, the patient did not comply at all. She now reports some shortness of breath. No reports of any chest pain. No nausea, vomiting, palpitations, cough, congestion or any fever. No recent travel. Nephrology and Cardiology have been consulted. The patient has chronic troponin leakage and does need an ischemic workup as an outpatient. I discussed this with Cardiology already. REVIEW OF SYSTEMS: Pertinent positive shortness of breath. The rest of 14-point review of systems have been reviewed with the patient and are negative. ALLERGIES: IODINE, LORAZEPAM. HOME MEDICATIONS: Amlodipine, ergocalciferol, aspirin. PAST MEDICAL HISTORY: ESRD on dialysis, type 2 diabetes, hypertension, medical noncompliance. SURGICAL HISTORY: Tunneled right HD catheter. FAMILY HISTORY: Hypertension, diabetes. SOCIAL HISTORY: No drugs. No alcohol. Does not smoke. Good social support. PHYSICAL EXAMINATION: VITAL SIGNS: Temperature is 95.6, pulse 88, respiratory rate is 16, blood pressure is 101/68, pulse ox 95% on nasal cannula. GENERAL: Not in acute distress. Alert and oriented x3. Cooperative on examination. HEENT: Head is normocephalic and atraumatic. Eyes; pupils are equal, round, and reactive to light bilaterally. Extraocular movements intact bilaterally. Throat; no evidence of any erythema or exudates in the posterior pharynx. Has poor dentition. NECK: Supple. Good range of motion. PULMONARY: Clear to auscultation bilaterally. No wheezing, rales, or rhonchi. No crackles appreciated. CARDIOVASCULAR: Positive S1, S2. No murmurs, rubs, or gallops appreciated. ABDOMEN: Soft, nondistended, nontender to palpation. Bowel sounds present. MUSCULOSKELETAL: Strength is 5/5 throughout. No evidence of any muscle deficits on examination. No weakness appreciated. NEUROLOGICAL: Cranial 2 through 12 are grossly intact. No evidence of any neurological deficits on exam. SKIN: Intact. Warm to touch. Good cap refill. PSYCHIATRIC: Normal affect and mood. EXTREMITIES: No edema. Good range of motion throughout. LABORATORY DATA: White count 9.8, hemoglobin 9, hematocrit 27, platelets of 356. Chemistry; sodium 131, potassium 4.4, chloride 105, bicarb 24, anion gap of 16, BUN is 29, creatinine is 3.89, [id number] glucose 105. LFTs within normal range. Troponin slightly elevated at 0.469, 0.586. Total protein 7.2, albumin is 3. Arcos virus PCR negative. Not sure why the patient had blood cultures ordered despite me explaining this to the ER physician that is not necessary. IMAGING STUDIES: Chest x-ray shows some pulmonary vascular congestion with slight increase and small bilateral pleural effusions. IMPRESSION: 1. Shortness of breath secondary to possible volume overload. 2. End-stage renal disease, on hemodialysis. 3. Hypertension. 4. Type 2 diabetes. 5. Anemia of end-stage renal disease. PLAN: At this time, the patient reports that she is short of breath despite looking very comfortable and is not tachypneic on exam. Chest x-ray shows some very small amounts of pleural effusion. She is scheduled for her brand new dialysis unit tomorrow, but obviously she will not be there. Nephrology was consulted. They will do dialysis tomorrow and increased ultrafiltration. I discussed with her once again to be very compliant with her diet including volume intake and low-sodium diet. She seems to not be very compliant whatsoever despite me describing this in discussing with her on several occasions. On any rate, Cardiology was consulted for the mild troponin leakage. This again was chronic and they recommended outpatient ischemic workup at a later date once the patient is much more stable at the dialysis unit. I will go ahead and resume same home medications. Give Lasix 100 mg IV x1. She did not qualify for home O2 on the last discharge. We will try to see if she qualifies this time around. Otherwise, we will put her on heparin for DVT prophylaxis. Renal diet. MD ESTER Guerra/MARTINEL /[id number]
[2019-09-21] VITALS (9 sets, daily range): BP systolic 108–132; BP diastolic 59–78
--- NOTE | 2019-09-21 01:23 | Consultation ---
DATE OF CONSULTATION: 09/20/2019 Cardiology Consult Note REASON FOR CONSULTATION: Elevated troponin. CHIEF COMPLAINT: Shortness of breath. HISTORY OF PRESENT ILLNESS: The patient is a 69-year-old female, well known to our service. She was recently admitted to the hospital for volume overload, acute on chronic kidney injury, initiated on dialysis, was sent home and returns once again with worsening shortness of breath and orthopnea. Denies any chest pain. Troponin noted to be elevated at 0.46. REVIEW OF SYSTEMS: As per HPI, otherwise negative. PAST MEDICAL HISTORY: As noted in the HPI, hypertension, hyperlipidemia, and end-stage renal disease. SOCIAL HISTORY: Does not smoke, drink, or abuse drugs. FAMILY HISTORY: Noncontributory. OUTPATIENT MEDICATIONS: Reviewed. ALLERGIES: REVIEWED. OBJECTIVE: VITAL SIGNS: Temperature afebrile, pulse 86, respiratory rate 20, blood pressure 112/73, saturating 97% on 2 L nasal cannula. GENERAL: Middle-aged female, in no acute distress. CARDIOVASCULAR: Regular rate and rhythm. No murmurs, rubs, or gallops. LUNGS: Clear to auscultation anteriorly. ABDOMEN: Soft, nontender, and nondistended. NEURO AND PSYCH: Alert and oriented to person, place, and time. Normal affect. INPATIENT MEDICATIONS: Reviewed. LABORATORY DATA: Reviewed. Notable for sodium of 131, creatinine 3.89, troponin 0.46 with normal CK and CK-MB, coronavirus PCR is pending. IMAGING DATA: Reviewed. Chest x-ray shows pulmonary venous congestion, increased bilateral pleural effusion with bibasilar atelectasis. TELEMETRY DATA: Reviewed, shows normal sinus rhythm. ASSESSMENT AND PLAN: Elevated troponin. PLAN: Discussed with the patient once again regarding catheterization. The patient says she feels too short of breath, unable to lay down, does not want to undergo catheterization until after breathing is better. She is planned to have dialysis tomorrow morning. Currently she wishes to wait as an outpatient to get her catheterization performed. We will get another two sets of troponin to trend, given normal CK and CK-MB. Troponin elevation likely secondary to type 2 LA in the setting of volume overload instead of true ACS. EKG without any significant change compared to her prior EKG, although it is abnormal at baseline. Thank you for this consult. We will continue to follow. MD MARCUS Dailey/NORBERTO /[id number]
[2019-09-21 06:00] LABS: BASOPHILS # (AUTO) 0.1 (0.0-0.1); EOSINOPHILS # (AUTO) 0.3 (0.0-0.4); HEMATOCRIT 24.6 % (34.2-44.1); HEMOGLOBIN 8.1 g/dL (12.0-16.0); LYMPHOCYTES # (AUTO) 1.5 (1.0-3.2); MEAN CORPUSCULAR HGB CONC 32.9 g/dL (31-35); MEAN CORPUSCULAR VOLUME 88.2 fL (81-99); MONOCYTES # (AUTO) 0.7 (0.2-0.8); NEUTROPHILS # (AUTO) 5.1 (2.1-6.9); PLATELET COUNT 317 x10e3/uL (140-360); RED BLOOD COUNT 2.79 x10e6/uL (3.6-5.1); RED CELL DISTRIBUTION WIDTH 12.7 % (11.7-14.4)
[2019-09-21 06:18] LABS: ALBUMIN 2.7 g/dL (3.5-5.0); ALBUMIN/GLOBULIN RATIO 0.7 (0.8-2.0); ANION GAP 13.5 mmol/L (8-16); CALCIUM 8.5 mg/dL (8.4-10.2); CREATININE, SERUM 4.5 mg/dL (0.57-1.11); POTASSIUM 4.5 mmol/L (3.5-5.1)
[2019-09-21 06:53] LABS: CREATINE KINASE MB 7.7 ng/mL (0-5.0)
--- NOTE | 2019-09-21 07:00 | NUR ---
Notified Dr Arlet Clinton regarding elevated Troponin 1.048, new order received to keep her NPO after breakfast for possible heart cath today after Dialysis
--- NOTE | 2019-09-21 07:20 | NUR ---
Bedside report and walking rounds completed with oncoming nurse. Patient in bed with call light within reach. No issues or concerns noted.
[2019-09-21] MEDS: INSULIN LISPRO 100 UNIT/1 ML 3ML VIAL SQ SCH ×4 (07:30→21:00)
[2019-09-21] MEDS: FAMOTIDINE 20 MG/2 ML VIAL IV SCH ×3 (08:43→19:31)
[2019-09-21] MEDS: ASPIRIN 81 MG ENTERIC COATED PO SCH (08:43)
[2019-09-21] MEDS ORDERED: ASPIRIN 325 MG TAB PO SCH (09:00)
[2019-09-21] MEDS: HEPARIN SOD (PORCINE) 5,000 UNIT/ML VIAL SC SCH (09:00)
[2019-09-21] MEDS ORDERED: SODIUM CHLORIDE 0.9% 1000ML 2,000 ML ONE (09:03)
--- NOTE | 2019-09-21 09:44 | NUR ---
Pt. expressed no spiritual or emotional concerns at this time. [employer] provided hospitality and information on how to reach cms expert, if needed. No need to follow at this time. JONNATHAN ROSENBERG [employer] Spiritual Care Department O: [phone]
[2019-09-21] MEDS ORDERED: SODIUM CHLORIDE 0.9% 1000ML 2,000 ML IV PRN (12:15)
[2019-09-21] MEDS ORDERED: SODIUM CHLORIDE 0.9% 250ML 500 ML IV PRN (12:15)
[2019-09-21] MEDS ORDERED: HEPARIN SOD (PORCINE) 1000 UNIT/ML SDV IV PRN (12:15)
--- NOTE | 2019-09-21 14:31 | Progress Note ---
DATE: 09/21/2019 Medicine Progress Note SUBJECTIVE: The patient is doing well today with no complaints. She did have hemodialysis this morning. I spoke with Cardiology. They want to do a left heart catheterization, but due to the Coronavirus PCR that was ordered in the ER, we are waiting for that to be negative in order for her to have her heart catheterization. Possibly can occur tomorrow at the earliest. PHYSICAL EXAMINATION: VITAL SIGNS: Temperature is 97.7, pulse 87, respiratory rate is 16, blood pressure is 132/76, and pulse ox 100%. She is on room air. She is not even on oxygen. GENERAL: Not in acute distress. Alert and oriented x3. Cooperative on examination. HEENT: Head; normocephalic, atraumatic. Eyes; pupils are equal, round, and reactive to light bilaterally. Extraocular movements intact bilaterally. Throat; no evidence of erythema or exudates in the posterior pharynx. Has poor dentition. NECK: Supple. Good range of motion. PULMONARY: Clear to auscultation bilaterally. No wheezing, no rales, no rhonchi, no crackles. CARDIOVASCULAR: Positive S1 and S2. No murmurs, rubs, or gallops appreciated. ABDOMEN: Soft, nondistended, and nontender to palpation. Bowel sounds present. MUSCULOSKELETAL: She is able to move all the extremities with no evidence of any weakness. NEUROLOGIC: No neurological deficits on exam. SKIN: Intact. Warm to touch. Good cap refill. PSYCHIATRIC: She has normal affect and mood. Alert and oriented x3. EXTREMITIES: No edema appreciated. LABORATORY DATA: Show white count 7.7, hemoglobin 8.1, hematocrit is 24.6, and platelets of 317. Chemistry; sodium 131, potassium 4.5, chloride 98, bicarb 24, anion gap of 13, BUN is 33, and creatinine is 4.5. Troponin was elevated at 1.048 and CK-MB is 7.7. Albumin 2.7. Coronavirus PCR is pending. MICROBIOLOGY: Blood cultures, no growth. IMAGING STUDIES: None. IMPRESSION: 1. Shortness of breath secondary to volume overload. 2. End-stage renal disease, on hemodialysis. 3. Hypertension. 4. Type 2 diabetes. 5. Anemia of end-stage renal disease. 6. Elevated troponin. PLAN: At this time, her shortness of breath resolved after having ultrafiltration today with dialysis. Labs reviewed and stable. I discussed this case with Nephrology. In the event, the patient does have a heart catheterization tomorrow, we will dialyze her tomorrow and possibly discharge tomorrow. She was supposed to get a left heart catheterization today, but we are waiting for the Coronavirus PCR to come back. She has had 3 Coronavirus PCRs in the last 3 weeks and they all been negative. On any rate, once that result is back and it is negative, she will undergo a left heart catheterization as per our discussion with Cardiology. Hopefully that will occur tomorrow and if it is all negative, she could potentially be discharged to home. Discussed plan of care with nursing staff. MD ESTER Guerra/MODYasmin /[id number]
[2019-09-21] MEDS ORDERED: DIPHENHYDRAMINE HCL INJ 50 MG/ML VIAL IV PRN (15:15)
[2019-09-21] MEDS ORDERED: HYDROCORTISONE SOD SUCCINATE 100 MG VIAL IV PRN (15:15)
[2019-09-21] MEDS ORDERED: HYDROCORTISONE SOD SUCCINATE 250 MG VIAL IV PRN (15:30)
--- NOTE | 2019-09-21 15:46 | Progress Note ---
DATE: 09/21/2019 Nephrology Progress Note SUBJECTIVE: Followed for end-stage kidney disease. Admitted with dyspnea. Now feeling much better after having dialysis with 3 L fluid removal earlier today. Denies any shortness of breath or nausea. OBJECTIVE: VITAL SIGNS: Stable. Blood pressure 132/76, respirations 16 per minute. She is afebrile. NECK: Without JVP. RESPIRATORY: Symmetrical breathing without any distress. CARDIOVASCULAR: Regular rate and rhythm. ABDOMEN: Not distended. EXTREMITIES: Without pitting edema. NEUROLOGICAL: Alert and oriented x3. LABORATORY DATA: Hemoglobin 8.1, normal white count and platelets. Serum chemistries from this morning noted. Sodium was 131, potassium 4.5, creatinine 4.5. IMPRESSION AND PLAN: 1. End-stage kidney disease, status post hemodialysis and ultrafiltration today. Clinically, feels much better. Cardiac catheterization is planned for later today or tomorrow morning. 2. Anemia, secondary to chronic kidney disease. Stable hemoglobin. 3. Hypertension, controlled. 4. We will consider dialyzing her after the cardiac catheterization tomorrow. Lucho Bae MD [facility]/MODL /[id number]
--- NOTE | 2019-09-21 17:14 | NUR ---
Dr Meng had rounds , new order recvd to start on Heparin drip.
[2019-09-21] MEDS ORDERED: HEPARIN 25,000 UNIT 600 UNIT in DEXTROSE 5% 250ML 250 ML IV SCH (17:30)
[2019-09-21 18:46] LABS: INR 0.98; PROTHROMBIN TIME 13.6 seconds (11.9-14.5)
[2019-09-21 18:47] LABS: PARTIAL THROMBOPLASTIN TIME 35.2 seconds (23.8-35.5)
--- NOTE | 2019-09-21 19:12 | NUR ---
RECEIVED REPORT FROM PREVIOUS NURSE. CALL LIGHT WITHIN REACH. PATIENT IN BED.
[2019-09-21] MEDS: ACETAMINOPHEN 325 MG TAB PO PRN (19:41)
[2019-09-21] MEDS: ATORVASTATIN 20 MG TAB PO SCH (21:22)
[2019-09-22] VITALS (17 sets, daily range): BP systolic 103–144; BP diastolic 57–90
--- NOTE | 2019-09-22 01:07 | NUR ---
PATIENT'S PTT IS 59.1 SO THE RATE WAS NOT CHANGED AND KEPT AT 6 MLS/HR
--- NOTE | 2019-09-22 07:02 | NUR ---
GAVE BEDSIDE SHIFT REPORT TO ONCOMING NURSE. CALL LIGHT WITHIN REACH. PATIENT IN BED.
[2019-09-22] MEDS: INSULIN LISPRO 100 UNIT/1 ML 3ML VIAL SQ SCH ×4 (07:30→20:38)
[2019-09-22] MEDS: FAMOTIDINE 20 MG/2 ML VIAL IV SCH ×2 (08:09→19:49)
[2019-09-22] MEDS: ASPIRIN 81 MG ENTERIC COATED PO SCH (09:00)
--- NOTE | 2019-09-22 11:20 | NUR ---
ORDERS FOR HOME 02 O2 EVAL BY RESP SHOWS SATS 98% PT DOES NOT QUALIFY FOR HOME [address] FUENTES ASKING FOR INPT ORDER ON THIS 2 DAY OBS
[2019-09-22] MEDS ORDERED: LIDOCAINE HCL 2% LOCAL 20 ML VIAL ONE (12:21)
[2019-09-22] MEDS ORDERED: VERAPAMIL HCL 2.5 MG/ML 2 ML VIAL ONE (12:21)
[2019-09-22] MEDS ORDERED: HEPARIN SOD (PORCINE) 1000 UNIT/ML 30ML ONE (12:21)
[2019-09-22] MEDS ORDERED: IOPAMIDOL 370 MG/ML 200 ML INFUS..BTL INJ ONE (12:22)
[2019-09-22] MEDS ORDERED: HEPARIN SOD/SOD CHLORIDE 2,000 ML ONE (12:22)
[2019-09-22] MEDS ORDERED: SODIUM CHLORIDE 0.9% 500ML 500 ML ONE (12:23)
[2019-09-22] MEDS ORDERED: NITROGLYCERIN/D5W 200 MCG/ML 250 ML ONE (12:23)
--- NOTE | 2019-09-22 12:55 | NUR ---
Patient off the unit for Hear cath, stable, no distress noted
--- NOTE | 2019-09-22 14:04 | NUR ---
1404pm PREP NOTE PROCEDURAL .................................................................................. pt in #9, prepped for procedure. Alert oriented and appropriate, PERRLA, respirations even and unlabored to room air. Pulses x4 extremities equal and faint. Pedal pulses PT/DP weak to nonexistent and marked. Cap fill brisk < 3 sec. bilateral feet semi cool and pale. Rt TR band site healthy Pt NO fix Rt TR band may have Heparin drip restart at 1915pm tonight. REminder brace off with am shower.Rt wrist iv site w/o s/s infiltration NO iv infusing at this time hx on renal Hd Skin warm and dry integrity appears intact in general. started and presents healthy w/o s/s of infiltration or complain Back to baseline. Abdomen soft and supple. pt offered toileting, denies need to urinate or defecate. Personal affects with patient. Family at bedside. Pt and family verbalizes understanding of POC. Pre-Op Meds benadryl and prednisone per floor staff. Chart copied with CD ready for transfer for increase level of care. Monitor SR No gross issues pain,pallor,pressure or dysthymia
--- NOTE | 2019-09-22 14:45 | NUR ---
1445p RADIAL COMPRESSION REMOVAL NOTE: Initial Cuff volume 13 cc 1445p -3cc Removed No hematoma/bleeding noted with normal neurovascular function. 1500p -5cc Removed No hematoma/ bleeding noted with normal neurovascular function. 1515p -5cc Removed No hematoma/bleeding noted with normal neurovascular function. Air removal completed. Stasis achieved sterile 2x2,Tegaderm, Coban dressing No hematoma, bleeding noted with normal neurovascular function. Wrist splint in place. Pt instructed on POC. Ds/Rn
--- NOTE | 2019-09-22 15:40 | Progress Note ---
DATE: 09/22/2019 Nephrology Progress Note. SUBJECTIVE: The patient walked in the hallway this morning without getting short of breath. 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 Appears comfortable. OBJECTIVE: VITALS: Blood pressure 129/75, pulse 76 per minute, afebrile, oxygen saturation 96%. NECK: Supple. RESPIRATIONS: Symmetric, no distress. CARDIOVASCULAR: S1, S2. ABDOMEN: Not examined due to patient being covered on her way to the shrimp pond laborer. EXTREMITIES: Not examined because of above. NEUROLOGICAL: Alert and oriented x3. LABS: None from today. IMPRESSION: 1. End-stage kidney disease, was dialyzed and ultrafiltered yesterday. Now much more comfortable. 2. We will plan on dialyzing her either today after catheterization or tomorrow morning. 3. Anemia secondary to chronic kidney disease, hemoglobin remains stable. 4. Hypertension, continue current medications. Lucho Bae MD [facility]/MODL /[id number]
--- NOTE | 2019-09-22 16:00 | NUR ---
1600p phoned report and face to face handoff completed with Willi Cruz pt to transfer to higher level care surgical eval. Eber Marshall RN f/o MOT. No gross issues pain,pallor,pressure or dysrhythmia. TR band teaching completed with Pt NO conscious sedation given only premed. To have heparin drip restarted by 730pm. Rt wrist iv site NO s/s infiltration. Has arm reminder in place NOrmal neuro vascular function. Left pt in room side rails down call light at bedside. Calling family to inform of transfer. Left pt with copy of diagram and tr band teaching tool. Pt aware of POC. Monitor remains NSR and vs stable.REport to tel room.ernie/willi
--- NOTE | 2019-09-22 16:06 | Progress Note ---
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 I was not able to see her before the transfer to the pharmaceutical laboratory technician. Discussed case with the nursing staff. The patient was doing well with no issues prior to the catheterization. PHYSICAL EXAMINATION: VITAL SIGNS: Temperature is 97.8, pulse 76, respiratory rate is 20, blood pressure 120/75, and pulse ox is 96% on 2 L nasal cannula. Unable to obtain, the patient is currently in the pharmaceutical laboratory technician and she left before I was able to come and evaluate her. LABORATORY DATA: White count 7.7, hemoglobin 8.1, hematocrit is 24.6, and platelets of 317. Chemistries reviewed and stable. MICROBIOLOGY: Blood cultures no growth. Coronavirus PCR nondetected. IMPRESSION: 1. Shortness of breath secondary to volume overload. 2. End-stage renal disease, on dialysis. 3. Hypertension. 4. Type 2 diabetes. 5. Anemia of end-stage renal disease. 6. Elevated troponin/ule-ZG-rhvjepckb myocardial infarction. PLAN: At this time, she is currently in the pharmaceutical laboratory technician receiving a left heart catheterization for further evaluation and management. This will help determine if the patient needs further intervention. If she does get a PCI, we will convert her to inpatient. If she does not get a PCI, then we will keep her under observation. She will be dialyzed as per Nephrology recommendations. Continue with same plan of care and monitor very closely. Continue with cardioprotective medications for now. We will discuss the results of the catheterization with Cardiology once she is back from the procedure. I discussed plan of care with nursing staff. MD ESTER Guerra/NORBERTO /[id number]
--- NOTE | 2019-09-22 16:06 | NUR ---
Recvd patient from [employer], rt radial approach site is intact, dressing intact, denies any pain, no distress noted
--- NOTE | 2019-09-22 19:40 | NUR ---
STARTED HEPARIN DRIP AT 5 MLS/HR. WAITING A BED AT MEDICAL CENTER TO TRANSFER THE PATIENT FOR CABG. DAUGHTER AT THE BEDSIDE.
[2019-09-22] MEDS: ATORVASTATIN 20 MG TAB PO SCH (20:38)
--- NOTE | 2019-09-22 21:29 | NUR ---
RECEIVED BEDSIDE SHIFT REPORT FROM PREVIOUS NURSE. CALL LIGHT WITHIN REACH. PATIENT IN BED Addendum: 09/22/19 at 2129 by Sandra Marie RN TIME [id number]
--- NOTE | 2019-09-22 22:38 | NUR ---
GAVE REPORT TO NOE AT [facility]. PATIENT IS BEING TRANSFERRED TO [address] [place] [address] TO BED 16. PATIENT LEFT VIA STRETCHER WITH BELONGINGS AND CONNECTED TO HEPARIN DRIP AT 5 MLS/HR. PATIENT WAS CONNECTED TO A HEART MONITOR. DAUGHTER ACCOMPANIED PATIENT WHILE SHE WAS TRANSFERRED WITH EMS. PATIENT IN NO PAIN OR DISTRESS. PATIENT WAS TOLD INSTRUCTIONS AND HAD NO QUESTIONS. PATIENT AND FAMILY MEMBER GRATEFUL FOR THE CARE THEY RECEIVED.
--- NOTE | 2019-09-24 04:52 | Discharge Summary ---
FINAL DISCHARGE DIAGNOSES: 1. Pulmonary edema secondary to volume overload. 2. Rrj-CS-uxnbsztfi myocardial infarction, status post left heart catheterization, found to have diffuse coronary artery disease, transferred to [facility] for coronary artery bypass grafting evaluation. 3. End-stage renal disease, on dialysis. 4. Hypertension. 5. Type 2 diabetes. 6. Anemia of end-stage renal disease. CONSULTANTS: Nephrology and Cardiology. PHYSICAL EXAMINATION: VITAL SIGNS: Temperature is 97.8, pulse 93, respiratory rate is 20, blood pressure is 120/74, and pulse ox 100% on room air. LABORATORY DATA: Show white count 7.7, hemoglobin 8.1, hematocrit is 25.6, platelets of 317. Chemistry; sodium was 131, potassium 4.5, chloride 98, bicarb 24, anion gap of 13, BUN 33, creatinine 4.5, glucose 91, A1c is 5.4, calcium 8.5, total bilirubin was 0.4 AST 22, ALT 12, alkaline phosphatase 85. Troponins were elevated at 1.048 on the last reading. Albumin is 2.7. SEROLOGY: Shows coronavirus PCR negative. Hepatitis panel antigen for B negative and COVID was negative. MICROBIOLOGY: Blood cultures, no growth to-date. IMAGING STUDIES: Chest x-ray shows pulmonary venous congestion and slight interval increase in about small bilateral pleural effusions with bibasilar airspace opacities, likely atelectasis. HOSPITAL COURSE: A 69-year-old female, who recently started on dialysis, comes into the ED with complaints of shortness of breath with underlying pulmonary edema seen on imaging studies. The patient was admitted and Nephrology was consulted. The patient had several dialysis treatments with increased ultrafiltration. While here, her troponin was slightly elevated. She was supposed to follow up as an outpatient with a paper pattern folder for further evaluation, but did not; now presents with mild elevation of troponin, in which Cardiology was consulted. The patient underwent left heart catheterization on 09/22/2019, found to have diffuse CAD needing CABG evaluation. The patient was then transferred to [facility] in [facility] for a CABG evaluation by CV Surgery. Prior to being discharged, the patient was stable with no complaints. The patient was cleared for discharge by all consultants. On the day of discharge, vital signs were stable, labs reviewed and stable. The patient is seen and evaluated, and examined thoroughly on the day of discharge. No other complaints. The patient verbalized understanding and agrees to plan of care to follow up accordingly as a transfer to [facility] for CABG evaluation. I discussed plan of care with all the consultants and verbalized understanding. MEDICATIONS: See med reconciliation form. DISPOSITION: Transfer to [facility] for CABG evaluation. CONDITION: Stable. DIET: Heart healthy. Once again, the patient will be transferred to [facility] for further evaluation and management for CABG evaluation. MD ESTER Guerra/NORBERTO /[id number]
--- NOTE | 2019-11-03 00:41 | Operative Report ---
DATE OF PROCEDURE: 09/22/2019 SURGEON: Armani Clinton MD CARDIAC CATHETERIZATION REPORT INDICATION FOR PROCEDURE: Non-ST elevation DC and CHF. PREPROCEDURE ASSESSMENT: The risks, benefits, and alternatives of treatment were explained to the patient prior to the procedure. The patient was deemed to be an appropriate candidate for cardiac catheterization. Informed consent was obtained and documented in the medical record. MEDICATIONS: Please see nursing notes for medications administered throughout the procedure. PROCEDURES PERFORMED: 1. Coronary angiography. 2. Left heart catheterization. PROCEDURE IN DETAIL: The patient was brought to the cardiac catheterization laboratory in a fasting state. Right wrist was prepped and draped in a sterile fashion. A 6-Occitan Slender sheath was inserted in the right radial artery using modified Seldinger technique. Coronary angiography was performed using a 5-Occitan Noreen radial catheter. Left heart catheterization was performed using a pigtail catheter. All catheters were removed over a wire. Multiple orthogonal views were taken of each coronary artery. Access site was closed using a TR band. SIGNIFICANT FINDINGS: Left main, no significant CAD. LAD, small vessel wraps around the apex, diffuse disease 99% with RAMANA-2 flow in the mid LAD. Distal and apical LAD also diffusely diseased. There is a small portion of the mid LAD about 2 mm in diameter. There appears to be relatively normal. There is a large diagonal one branch with multiple tandem 80% lesions proximal and distal portions. Left circumflex, nondominant left circumflex about 2.5 mm in diameter, 70% lesion in the midportion. RCA; large dominant RCA. There is 90% stenosis at the bifurcation of the left PDA and left PL branches into true bifurcation lesion with involvement of the ostium of the PDA and PLV. Left ventricular end-diastolic pressure of 19. No gradient across aortic valve. LV ejection fraction estimated to be 35% to 40% with global hypokinesis. GRAFTS AND IMPLANTS: None. SPECIMEN REMOVED: None. ESTIMATED BLOOD LOSS: 20 mL. COMPLICATIONS: None. FINAL RECOMMENDATIONS: Recommend transfer for coronary artery bypass graft surgery. Armani Clinton MD [facility]/MODL /[id number]
== END 2019-09-22 22:48 | disposition other institution (70) ==
LOC: ER 06:24 → ERHOLD 08:33 → MED/SURG3 09:53
PROVIDERS: ADMIT Internal Medicine; ATTEND Internal Medicine
DX: I21.4 Non-ST elevation (NSTEMI) myocardial infarction (principal); N18.6 End stage renal disease; E11.22 Type 2 diabetes mellitus with diabetic chronic kidney disease; Z99.2 Dependence on renal dialysis; Z79.4 Long term (current) use of insulin; I25.10 Atherosclerotic heart disease of native coronary artery without angina pectoris; D63.1 Anemia in chronic kidney disease; Z11.59 Encounter for screening for other viral diseases; I13.2 Hypertensive heart and chronic kidney disease with heart failure and with stage 5 chronic kidney disease, or end stage renal disease; I50.9 Heart failure, unspecified
CPT/HCPCS: 90970; 93458; G0257; 36415; 71045; 75625; 80053; 82550; 82553; 82948; 83036; 84484; 85007; 85025; 85027; 85610; 85730; 86705; 86706; 87040; 87340; 87635; 93005; 99152; 99284; C1769; C1887; C1894; G0378; J1200; J1644; J1720; J1940; J2001; J7030; J7040; Q9967

== ENCOUNTER 2021-05-05 13:03 | Inpatient (IN) | payer MEDICARE, OTHER ==
[~2021-05-05] VITALS: Ht 147.3 cm; Wt 69.9 kg
[~2021-05-05 13:03] MED LIST changes: +AMLODIPINE BESY10 MG PO; +VITAMIN D250 MCG PO
[2021-05-05 14:02] LABS: BASOPHILS % 0.5 % (0.0-1.0); EOSINOPHILS % 0.2 % (0.0-6.0); HEMATOCRIT 35.4 % (34.2-44.1); LYMPHOCYTES # (AUTO) 1.2 (1.0-3.2); LYMPHOCYTES % 14.8 % (18.0-39.1); MEAN CORPUSCULAR HEMOGLOBIN 29.6 pg (28-32); MEAN CORPUSCULAR HGB CONC 31.1 g/dL (31-35); MEAN CORPUSCULAR VOLUME 95.4 fL (81-99); MONOCYTES # (AUTO) 0.5 (0.2-0.8); NEUTROPHILS # (AUTO) 6.3 (2.1-6.9); NEUTROPHILS % 78.1 % (38.7-80.0); PLATELET COUNT 300 x10e3/uL (140-360); RED BLOOD COUNT 3.71 x10e6/uL (3.6-5.1); RED CELL DISTRIBUTION WIDTH 15.6 % (11.7-14.4)
[2021-05-05 14:22] LABS: ALBUMIN 3.6 g/dL (3.5-5.0); ALBUMIN/GLOBULIN RATIO 0.7 (0.8-2.0); CALCIUM 8.8 mg/dL (8.4-10.2); CREATININE, SERUM 7.33 mg/dL (0.57-1.11)
[2021-05-05 14:28] LABS: CREATINE KINASE MB 1.6 ng/mL (0-5.0)
[2021-05-05 14:43] LABS: ANION GAP 23.5 mmol/L (8-16); POTASSIUM 6.5 mmol/L (3.5-5.1)
[2021-05-05] MEDS ORDERED: SODIUM BICARBONATE 8.4% INJ 50 ML SYR IV STA (14:53)
[2021-05-05] MEDS ORDERED: DEXTROSE 50% SYRINGE 50 ML IV STA (14:53)
[2021-05-05] MEDS ORDERED: CALCIUM GLUCONATE 10% INJ 4.65 MEQ in SODIUM CHLORIDE 0.9% 50ML 50 ML IV ONE (15:00)
[2021-05-05] MEDS ORDERED: INSULIN REGULAR, HUMAN 100 UNIT/1 ML IV ONE (15:00)
[2021-05-05] MEDS ORDERED: ASPIRIN 81 MG CHEW TAB PO ONE (15:30)
[2021-05-05] MEDS ORDERED: HEPARIN SOD IV ONE (15:45)
[2021-05-05] MEDS ORDERED: HEPARIN 25,000 UNIT 25,000 UNIT in DEXTROSE 5% 250ML 250 ML IV SCH (15:45)
[2021-05-05] MEDS ORDERED: DEXTROSE 5% IV ONE (15:45)
[2021-05-05] MEDS ORDERED: HEPARIN SOD (PORCINE) 5,000 UNIT/ML VIAL IV ONE (16:00)
[2021-05-05] MEDS ORDERED: NITROGLYCERIN 0.4 MG SUBL SL PRN (16:00)
[2021-05-05] MEDS ORDERED: DEXTROSE 50% SYRINGE 50 ML IV PRN ×3 (16:00→20:00)
[2021-05-05] MEDS ORDERED: ONDANSETRON HCL INJ 2MG/ML 2ML 2 MG/ML VIAL IV PRN (16:00)
[2021-05-05] MEDS: HEPARIN 25,000 UNIT 600 UNIT in DEXTROSE 5% 250ML 250 ML IV SCH (16:28)
[2021-05-05] MEDS: INSULIN LISPRO 100 UNIT/1 ML 3ML VIAL SQ SCH ×2 (16:30→21:00)
[2021-05-05] MEDS ORDERED: HEPARIN 25,000 UNIT DRIP IV ONE (16:33)
[2021-05-05] MEDS: FAMOTIDINE 20 MG/2 ML VIAL IV SCH (17:00)
[2021-05-05 17:07] LABS: INR 1.06; PROTHROMBIN TIME 14.7 seconds (11.9-14.5)
[2021-05-05 17:08] LABS: PARTIAL THROMBOPLASTIN TIME 37.4 seconds (23.8-35.5)
[2021-05-05] MEDS ORDERED: SODIUM CHLORIDE 0.9% 1000ML 2,000 ML ONE (17:52)
[2021-05-05] MEDS ORDERED: BENZONATATE 100 MG CAP PO PRN (19:45)
[2021-05-05] MEDS ORDERED: LIDOCAINE 4% PATCH TP PRN (19:45)
[2021-05-05] MEDS ORDERED: SIMETHICONE 80 MG CHEW PO PRN (19:45)
[2021-05-05] MEDS ORDERED: DIPHENHYDRAMINE HCL 25 MG CAP PO PRN (19:45)
[2021-05-05] MEDS ORDERED: HYDRALAZINE HCL 20 MG/ML VIAL IV PRN (19:45)
[2021-05-05] MEDS ORDERED: POTASSIUM CHLORIDE 20 MEQ TAB CR PO PRN (19:45)
[2021-05-05] MEDS ORDERED: HYDROCODONE/APAP 5MG-325MG TAB PO PRN (19:45)
[2021-05-05] MEDS ORDERED: ALBUTEROL/IPRATROPIUM 3 ML NEB NEB PRN (19:45)
[2021-05-05] MEDS ORDERED: DOCUSATE SODIUM 100 MG CAP PO PRN (19:45)
[2021-05-05 23:00] VITALS: BP 109/87
[2021-05-05 23:10] LABS: CREATINE KINASE MB 2.5 ng/mL (0-5.0)
[2021-05-06] VITALS (9 sets, daily range): BP systolic 79–109; BP diastolic 47–87
[2021-05-06 05:05] LABS: BASOPHILS # (AUTO) 0.1 (0.0-0.1); BASOPHILS % 0.8 % (0.0-1.0); EOSINOPHILS # (AUTO) 0.3 (0.0-0.4); EOSINOPHILS % 2.8 % (0.0-6.0); HEMATOCRIT 35.5 % (34.2-44.1); HEMOGLOBIN 11.1 g/dL (12.0-16.0); LYMPHOCYTES # (AUTO) 1.7 (1.0-3.2); LYMPHOCYTES % 18.9 % (18.0-39.1); MEAN CORPUSCULAR HEMOGLOBIN 30.1 pg (28-32); MEAN CORPUSCULAR HGB CONC 31.3 g/dL (31-35); MEAN CORPUSCULAR VOLUME 96.2 fL (81-99); MONOCYTES # (AUTO) 0.7 (0.2-0.8); NEUTROPHILS # (AUTO) 6.2 (2.1-6.9); NEUTROPHILS % 69.1 % (38.7-80.0); PLATELET COUNT 244 x10e3/uL (140-360); RED BLOOD COUNT 3.69 x10e6/uL (3.6-5.1); RED CELL DISTRIBUTION WIDTH 15.5 % (11.7-14.4)
[2021-05-06 05:20] LABS: MAGNESIUM 2.5 MG/DL (1.3-2.1); PHOSPHORUS 4.7 MG/DL (2.3-4.7)
[2021-05-06 05:30] LABS: CREATINE KINASE MB 2.5 ng/mL (0-5.0)
[2021-05-06 05:43] LABS: THYROID STIMULATING HORMONE 3.684 uIU/mL (0.350-4.940)
[2021-05-06 05:57] LABS: ALBUMIN 3.6 g/dL (3.5-5.0); ALBUMIN/GLOBULIN RATIO 0.8 (0.8-2.0); ANION GAP 18.3 mmol/L (8-16); CALCIUM 9.2 mg/dL (8.4-10.2); CHOL/HDL RATIO 3.2 (3.0-3.6); CREATININE, SERUM 5.26 mg/dL (0.57-1.11); POTASSIUM 4.3 mmol/L (3.5-5.1)
[2021-05-06] MEDS: FAMOTIDINE 20 MG/2 ML VIAL IV SCH ×2 (06:00→19:12)
[2021-05-06] MEDS: INSULIN LISPRO 100 UNIT/1 ML 3ML VIAL SQ SCH ×4 (07:30→21:00)
[2021-05-06] MEDS: PANTOPRAZOLE SOD 40 MG TABEC PO SCH (08:17)
[2021-05-06] MEDS: ASPIRIN 81 MG ENTERIC COATED PO SCH (08:17)
[2021-05-06] MEDS ORDERED: DESMOPRESSIN ACETATE 4 MCG/ML VIAL IV ONE (11:00)
[2021-05-06] MEDS ORDERED: DESMOPRESSIN ACETATE IV ONE (13:00)
[2021-05-06] MEDS ORDERED: SODIUM CHLORIDE 0.9% IV ONE (13:00)
[2021-05-06] MEDS: HEPARIN 25,000 UNIT 600 UNIT in DEXTROSE 5% 250ML 250 ML IV SCH (17:48)
[2021-05-06] MEDS: ATORVASTATIN 20 MG TAB PO SCH (21:10)
[2021-05-07] VITALS (7 sets, daily range): BP systolic 92–109; BP diastolic 49–61
[2021-05-07] MEDS: ACETAMINOPHEN 325 MG TAB PO PRN ×2 (02:18→21:45)
[2021-05-07] MEDS: FAMOTIDINE 20 MG/2 ML VIAL IV SCH ×2 (05:50→17:34)
[2021-05-07 06:05] LABS: BASOPHILS # (AUTO) 0.1 (0.0-0.1); BASOPHILS % 0.8 % (0.0-1.0); EOSINOPHILS # (AUTO) 0.3 (0.0-0.4); EOSINOPHILS % 3.7 % (0.0-6.0); HEMATOCRIT 31.5 % (34.2-44.1); HEMOGLOBIN 9.8 g/dL (12.0-16.0); LYMPHOCYTES # (AUTO) 1.7 (1.0-3.2); LYMPHOCYTES % 18.9 % (18.0-39.1); MEAN CORPUSCULAR HEMOGLOBIN 30.1 pg (28-32); MEAN CORPUSCULAR HGB CONC 31.1 g/dL (31-35); MEAN CORPUSCULAR VOLUME 96.6 fL (81-99); MONOCYTES # (AUTO) 0.9 (0.2-0.8); MONOCYTES % 10.2 % (4.4-11.3); NEUTROPHILS # (AUTO) 5.8 (2.1-6.9); NEUTROPHILS % 65.9 % (38.7-80.0); PLATELET COUNT 217 x10e3/uL (140-360); RED BLOOD COUNT 3.26 x10e6/uL (3.6-5.1); RED CELL DISTRIBUTION WIDTH 15.6 % (11.7-14.4)
[2021-05-07 06:22] LABS: ANION GAP 19.2 mmol/L (8-16); CALCIUM 8.4 mg/dL (8.4-10.2); CREATININE, SERUM 7.2 mg/dL (0.57-1.11); MAGNESIUM 2.7 MG/DL (1.3-2.1); POTASSIUM 5.2 mmol/L (3.5-5.1)
[2021-05-07 06:37] LABS: ALBUMIN 3.4 g/dL (3.5-5.0); ALBUMIN/GLOBULIN RATIO 0.8 (0.8-2.0); ANION GAP 18.2 mmol/L (8-16); CALCIUM 8.6 mg/dL (8.4-10.2); CREATININE, SERUM 7.19 mg/dL (0.57-1.11); POTASSIUM 5.2 mmol/L (3.5-5.1)
[2021-05-07] MEDS: INSULIN LISPRO 100 UNIT/1 ML 3ML VIAL SQ SCH ×4 (07:30→21:00)
[2021-05-07] MEDS: PANTOPRAZOLE SOD 40 MG TABEC PO SCH (07:30)
[2021-05-07] MEDS: ASPIRIN 81 MG ENTERIC COATED PO SCH (08:50)
[2021-05-07] MEDS: ONDANSETRON HCL INJ 2MG/ML 2ML 2 MG/ML VIAL IV PRN (14:52)
[2021-05-07 16:21] LABS: PHOSPHORUS 4.8 MG/DL (2.3-4.7)
[2021-05-07] MEDS: ATORVASTATIN 20 MG TAB PO SCH (21:00)
[2021-05-08] VITALS: BP 105/56
[2021-05-08 04:00] VITALS: BP 110/62
[2021-05-08] MEDS: FAMOTIDINE 20 MG/2 ML VIAL IV SCH (05:16)
[2021-05-08] MEDS: ONDANSETRON HCL INJ 2MG/ML 2ML 2 MG/ML VIAL IV PRN (06:35)
[2021-05-08] MEDS: INSULIN LISPRO 100 UNIT/1 ML 3ML VIAL SQ SCH ×4 (07:30→21:00)
[2021-05-08] MEDS ORDERED: SODIUM CHLORIDE 0.9% 1000ML 2,000 ML ONE (08:19)
[2021-05-08 08:39] VITALS: BP 118/62
[2021-05-08] MEDS: PANTOPRAZOLE SOD 40 MG TABEC PO SCH (08:42)
[2021-05-08] MEDS: ASPIRIN 81 MG ENTERIC COATED PO SCH (08:42)
[2021-05-08] MEDS ORDERED: ONDANSETRON HCL 4 MG ORAL DISINTEGRATING TAB PO PRN (10:30)
[2021-05-08 12:00] VITALS: BP 119/60
[2021-05-08] MEDS: CLOPIDOGREL BISULFATE 75 MG TAB PO SCH (12:43)
[2021-05-08 16:30] VITALS: BP 101/65
[2021-05-08] MEDS: FAMOTIDINE 20 MG TAB PO SCH (18:00)
[2021-05-08 20:00] VITALS: BP 100/56
[2021-05-08] MEDS: ATORVASTATIN 20 MG TAB PO SCH (21:00)
[2021-05-08] MEDS: ACETAMINOPHEN 325 MG TAB PO PRN (22:00)
[2021-05-09] VITALS: BP 94/68
[2021-05-09 04:00] VITALS: BP 105/59
[2021-05-09] MEDS: ACETAMINOPHEN 325 MG TAB PO PRN ×2 (04:07→14:00)
[2021-05-09] MEDS: FAMOTIDINE 20 MG TAB PO SCH (06:21)
[2021-05-09] MEDS: INSULIN LISPRO 100 UNIT/1 ML 3ML VIAL SQ SCH ×2 (07:30→11:30)
[2021-05-09 07:54] VITALS: BP 109/64
[2021-05-09 08:16] VITALS: BP 109/64
[2021-05-09] MEDS: PANTOPRAZOLE SOD 40 MG TABEC PO SCH (08:26)
[2021-05-09] MEDS: ASPIRIN 81 MG ENTERIC COATED PO SCH (08:26)
[2021-05-09] MEDS: CLOPIDOGREL BISULFATE 75 MG TAB PO SCH (08:26)
[2021-05-09] MEDS ORDERED: PLAVIX75 MG PO (10:08)
[2021-05-09] MEDS ORDERED: LIPITOR20 MG PO (10:08)
[2021-05-09 11:44] VITALS: BP 117/64
== END 2021-05-09 14:40 | disposition home or self-care (01) | DRG 280 ==
LOC: ER 13:39 → ERHOLD 16:02 → ICU 23:03 → MED/SURG 05-06 13:58
PROVIDERS: ADMIT Internal Medicine; ATTEND Internal Medicine
PROC: 5A1D70Z Performance of Urinary Filtration, Intermittent, Less than 6 Hours Per Day (ICD-10-PCS; principal; 2021-05-05)
DX: I13.2 Hypertensive heart and chronic kidney disease with heart failure and with stage 5 chronic kidney disease, or end stage renal disease (principal); N18.6 End stage renal disease; I21.A1 Myocardial infarction type 2; T82.838A Hemorrhage due to vascular prosthetic devices, implants and grafts, initial encounter; R11.2 Nausea with vomiting, unspecified; I50.22 Chronic systolic (congestive) heart failure; E11.22 Type 2 diabetes mellitus with diabetic chronic kidney disease; Z99.2 Dependence on renal dialysis; Z79.899 Other long term (current) drug therapy; I25.10 Atherosclerotic heart disease of native coronary artery without angina pectoris; Z53.29 Procedure and treatment not carried out because of patient's decision for other reasons; Z20.822 Contact with and (suspected) exposure to COVID-19; T40.605A Adverse effect of unspecified narcotics, initial encounter; T36.95XA Adverse effect of unspecified systemic antibiotic, initial encounter; D63.1 Anemia in chronic kidney disease; Z95.810 Presence of automatic (implantable) cardiac defibrillator; I95.89 Other hypotension; Z91.15 Patient's noncompliance with renal dialysis; I25.5 Ischemic cardiomyopathy; Z86.73 Personal history of transient ischemic attack (TIA), and cerebral infarction without residual deficits
CPT/HCPCS: 36415; 74022; 80048; 80053; 80061; 82550; 82553; 82948; 83036; 83735; 84100; 84443; 84484; 85025; 85610; 85730; 86704; 86706; 87340; 90962; 93005; 94799; 99251; 99285; J0610; J1644; J1817; J2405; J7030; J7799; U0002

== ENCOUNTER 2021-07-13 18:56 | Emergency (ER) | payer MEDICARE ==
[~2021-07-13] VITALS: Ht 147.3 cm; Wt 69.9 kg
[~2021-07-13 18:56] MED LIST changes: +LIPITOR20 MG PO
[2021-07-13 19:17] LABS: BASOPHILS % 0.4 % (0.0-1.0); EOSINOPHILS # (AUTO) 0.2 (0.0-0.4); EOSINOPHILS % 2.3 % (0.0-6.0); HEMATOCRIT 26.9 % (34.2-44.1); HEMOGLOBIN 8.3 g/dL (12.0-16.0); LYMPHOCYTES # (AUTO) 1.1 (1.0-3.2); LYMPHOCYTES % 12.3 % (18.0-39.1); MEAN CORPUSCULAR HEMOGLOBIN 27.7 pg (28-32); MEAN CORPUSCULAR HGB CONC 30.9 g/dL (31-35); MEAN CORPUSCULAR VOLUME 89.7 fL (81-99); MONOCYTES # (AUTO) 0.8 (0.2-0.8); MONOCYTES % 9.1 % (4.4-11.3); NEUTROPHILS # (AUTO) 6.5 (2.1-6.9); NEUTROPHILS % 75.3 % (38.7-80.0); PLATELET COUNT 289 x10e3/uL (140-360); RED CELL DISTRIBUTION WIDTH 18.3 % (11.7-14.4)
[2021-07-13 19:33] LABS: ALBUMIN 2.4 g/dL (3.5-5.0); ALBUMIN/GLOBULIN RATIO 0.5 (0.8-2.0); ANION GAP 20.4 mmol/L (8-16); CALCIUM 8.5 mg/dL (8.4-10.2); CREATININE, SERUM 7.27 mg/dL (0.57-1.11); POTASSIUM 4.4 mmol/L (3.5-5.1)
[2021-07-13] MEDS ORDERED: MIRALAX17 GM PO (20:48)
[2021-07-13] MEDS ORDERED: GLYCERIN1 EAC1 RC (20:48)
== END 2021-07-13 21:08 | disposition home or self-care (01) ==
LOC: ER 19:10
DX: K59.00 Constipation, unspecified (principal); I12.0 Hypertensive chronic kidney disease with stage 5 chronic kidney disease or end stage renal disease; E11.22 Type 2 diabetes mellitus with diabetic chronic kidney disease; N18.6 End stage renal disease; Z99.2 Dependence on renal dialysis; E78.5 Hyperlipidemia, unspecified; K21.9 Gastro-esophageal reflux disease without esophagitis; F41.9 Anxiety disorder, unspecified; M54.9 Dorsalgia, unspecified; G89.29 Other chronic pain; Z86.73 Personal history of transient ischemic attack (TIA), and cerebral infarction without residual deficits; Z95.810 Presence of automatic (implantable) cardiac defibrillator
CPT/HCPCS: 36415; 71045; 74018; 80053; 83880; 84484; 85025; 93005; 99284

== ENCOUNTER 2021-07-25 18:35 | Inpatient (IN) | payer MEDICARE ==
[~2021-07-25] VITALS: Ht 142.2 cm; Wt 77.8 kg
[~2021-07-25 18:35] MED LIST changes: +GLYCERIN1 EAC1 RC; +MIRALAX17 GM PO
[2021-07-25 18:54] LABS: BASOPHILS % 0.2 % (0.0-1.0); EOSINOPHILS # (AUTO) 0.2 (0.0-0.4); HEMATOCRIT 29.3 % (34.2-44.1); HEMOGLOBIN 9.2 g/dL (12.0-16.0); LYMPHOCYTES # (AUTO) 0.9 (1.0-3.2); LYMPHOCYTES % 9.5 % (18.0-39.1); MEAN CORPUSCULAR HEMOGLOBIN 29.3 pg (28-32); MEAN CORPUSCULAR HGB CONC 31.4 g/dL (31-35); MEAN CORPUSCULAR VOLUME 93.3 fL (81-99); MONOCYTES % 10.7 % (4.4-11.3); NEUTROPHILS # (AUTO) 7.5 (2.1-6.9); NEUTROPHILS % 77.1 % (38.7-80.0); PLATELET COUNT 214 x10e3/uL (140-360); RED BLOOD COUNT 3.14 x10e6/uL (3.6-5.1); RED CELL DISTRIBUTION WIDTH 21.2 % (11.7-14.4)
[2021-07-25] MEDS ORDERED: SODIUM CHLORIDE 0.9% 500ML 500 ML IV STA (18:57)
[2021-07-25] MEDS ORDERED: SODIUM CHLORIDE 0.9% 500ML 500 ML ONE (19:04)
[2021-07-25 19:15] LABS: ALBUMIN 2.5 g/dL (3.5-5.0); ALBUMIN/GLOBULIN RATIO 0.5 (0.8-2.0); ANION GAP 15.3 mmol/L (8-16); CALCIUM 8.4 mg/dL (8.4-10.2); CREATININE, SERUM 5.36 mg/dL (0.57-1.11); POTASSIUM 3.3 mmol/L (3.5-5.1)
[2021-07-25 19:21] LABS: CREATINE KINASE MB 1.3 ng/mL (0-5.0)
[2021-07-25] MEDS ORDERED: COREG3.125 MG PO (21:05)
[2021-07-25] MEDS ORDERED: MIDODRINE HCL5 MG PO (21:10)
[2021-07-25] MEDS ORDERED: MEGESTROL ACETA20 MG PO (21:10)
[2021-07-25] MEDS ORDERED: ISOSORBIDE MONO20 MG PO (21:10)
[2021-07-25] MEDS ORDERED: CLARITIN10 M4 PO (21:10)
[2021-07-25] MEDS ORDERED: HEPARIN SOD (PORCINE) 5,000 UNIT/ML VIAL IV ONE (22:30)
[2021-07-25] MEDS ORDERED: DEXTROSE 5% IV ONE (22:30)
[2021-07-25] MEDS ORDERED: HEPARIN SOD IV ONE (22:30)
[2021-07-25 23:16] LABS: INR 1.12; PROTHROMBIN TIME 15.4 seconds (11.9-14.5)
[2021-07-25 23:17] LABS: PARTIAL THROMBOPLASTIN TIME 37.9 seconds (23.8-35.5)
[2021-07-25 23:41] LABS: CREATINE KINASE MB 1.2 ng/mL (0-5.0)
[2021-07-25] MEDS ORDERED: HEPARIN SOD (PORCINE) 5,000 UNIT/ML VIAL ONE (23:51)
[2021-07-26] VITALS (71 sets, daily range): BP systolic 62–133; BP diastolic 42–96
[2021-07-26] MEDS ORDERED: FUROSEMIDE INJ 10 MG/ML 4 ML VIAL IV STA (00:09)
[2021-07-26] MEDS ORDERED: HEPARIN 25,000 UNIT 900 UNIT in DEXTROSE 5% 250ML 250 ML IV SCH (00:30)
[2021-07-26] MEDS ORDERED: HEPARIN SOD (PORCINE) 5,000 UNIT/ML VIAL IV ONE (00:30)
[2021-07-26] MEDS ORDERED: HEPARIN 25,000 UNIT DRIP IV ONE (00:48)
[2021-07-26] MEDS: NOREPINEPHRINE 8 MG/D5W 250 ML 250 ML IV SCH (00:52)
[2021-07-26] MEDS ORDERED: ALBUMIN 25% 25GM 100ML 0.25 GM/ML BTL IV ONE (05:00)
[2021-07-26] MEDS ORDERED: Vancomycin IV 1 GM in SODIUM CHLORIDE 0.9% 250ML 250 ML IV ONE (05:00)
[2021-07-26 05:55] LABS: BASOPHILS # (AUTO) 0.1 (0.0-0.1); BASOPHILS % 0.3 % (0.0-1.0); EOSINOPHILS # (AUTO) 0.1 (0.0-0.4); EOSINOPHILS % 0.2 % (0.0-6.0); HEMATOCRIT 31.4 % (34.2-44.1); HEMOGLOBIN 9.8 g/dL (12.0-16.0); LYMPHOCYTES # (AUTO) 0.7 (1.0-3.2); LYMPHOCYTES % 3.6 % (18.0-39.1); MEAN CORPUSCULAR HEMOGLOBIN 29.3 pg (28-32); MEAN CORPUSCULAR HGB CONC 31.2 g/dL (31-35); MEAN CORPUSCULAR VOLUME 93.7 fL (81-99); MONOCYTES # (AUTO) 1.2 (0.2-0.8); MONOCYTES % 5.7 % (4.4-11.3); NEUTROPHILS % 88.8 % (38.7-80.0); PLATELET COUNT 275 x10e3/uL (140-360); RED BLOOD COUNT 3.35 x10e6/uL (3.6-5.1); RED CELL DISTRIBUTION WIDTH 21.2 % (11.7-14.4)
[2021-07-26 06:20] LABS: ALBUMIN 2.6 g/dL (3.5-5.0); ALBUMIN/GLOBULIN RATIO 0.5 (0.8-2.0); ANION GAP 18.4 mmol/L (8-16); CALCIUM 8.6 mg/dL (8.4-10.2); CREATININE, SERUM 5.72 mg/dL (0.57-1.11); POTASSIUM 3.4 mmol/L (3.5-5.1)
[2021-07-26 06:26] LABS: CREATINE KINASE MB 1.1 ng/mL (0-5.0)
[2021-07-26] MEDS ORDERED: SODIUM CHLORIDE 0.9% 1000ML 2,000 ML ONE (07:31)
[2021-07-26] MEDS ORDERED: MIDODRINE HCL 5 MG TABLET PO SCH (08:00)
[2021-07-26] MEDS ORDERED: DEXTROSE 50% SYRINGE 50 ML IV PRN (08:00)
[2021-07-26] MEDS ORDERED: CEFEPIME 1 GM in SODIUM CHLORIDE 0.9% 50ML 50 ML IV SCH ×2 (08:25→09:00)
[2021-07-26 09:02] LABS: CHOL/HDL RATIO 2.6 (3.0-3.6)
[2021-07-26] MEDS: CEFEPIME 1 GM in SODIUM CHLORIDE 0.9% 50ML 50 ML IV SCH (10:28)
[2021-07-26] MEDS: INSULIN REGULAR, HUMAN 100 UNIT/1 ML SQ SCH ×3 (11:34→21:00)
[2021-07-26] MEDS: MIDODRINE HCL 5 MG TABLET PO SCH ×2 (11:39→16:19)
[2021-07-26 14:02] LABS: CREATINE KINASE MB 1.4 ng/mL (0-5.0)
[2021-07-26] MEDS ORDERED: SODIUM CHLORIDE 0.9% 100 ML IV ONE (15:30)
[2021-07-26] MEDS ORDERED: MAGNESIUM SULFATE 2GM/50ML 50 ML IV ONE (16:00)
[2021-07-26] MEDS: METRONIDAZOLE 500MG/NS 100ML 100 ML IV SCH (16:19)
[2021-07-26] MEDS: ATORVASTATIN 40 MG TAB PO SCH (21:29)
[2021-07-27] VITALS (27 sets, daily range): BP systolic 71–118; BP diastolic 44–73
[2021-07-27] MEDS: NOREPINEPHRINE 8 MG/D5W 250 ML 250 ML IV SCH (00:15)
[2021-07-27] MEDS: METRONIDAZOLE 500MG/NS 100ML 100 ML IV SCH ×3 (03:12→16:32)
[2021-07-27] MEDS ORDERED: Vancomycin IV 1 GM in SODIUM CHLORIDE 0.9% 250ML 250 ML IV SCH (05:00)
[2021-07-27 05:13] LABS: BASOPHILS % 0.3 % (0.0-1.0); EOSINOPHILS # (AUTO) 0.2 (0.0-0.4); EOSINOPHILS % 1.2 % (0.0-6.0); HEMATOCRIT 22.2 % (34.2-44.1); LYMPHOCYTES # (AUTO) 1.6 (1.0-3.2); LYMPHOCYTES % 10.5 % (18.0-39.1); MEAN CORPUSCULAR HEMOGLOBIN 29.7 pg (28-32); MEAN CORPUSCULAR HGB CONC 31.5 g/dL (31-35); MEAN CORPUSCULAR VOLUME 94.1 fL (81-99); MONOCYTES # (AUTO) 1.5 (0.2-0.8); MONOCYTES % 9.5 % (4.4-11.3); NEUTROPHILS # (AUTO) 12.1 (2.1-6.9); NEUTROPHILS % 77.6 % (38.7-80.0); PLATELET COUNT 213 x10e3/uL (140-360); RED BLOOD COUNT 2.36 x10e6/uL (3.6-5.1); RED CELL DISTRIBUTION WIDTH 21.9 % (11.7-14.4)
[2021-07-27 05:54] LABS: ALBUMIN 2.5 g/dL (3.5-5.0); ALBUMIN/GLOBULIN RATIO 0.6 (0.8-2.0); ANION GAP 14.7 mmol/L (8-16); CALCIUM 8.5 mg/dL (8.4-10.2); CREATININE, SERUM 4.68 mg/dL (0.57-1.11); POTASSIUM 3.7 mmol/L (3.5-5.1)
[2021-07-27] MEDS: INSULIN REGULAR, HUMAN 100 UNIT/1 ML SQ SCH ×4 (07:30→20:29)
[2021-07-27] MEDS ORDERED: CEFEPIME HCL 1 GM VIAL ONE (07:49)
[2021-07-27] MEDS: MIDODRINE HCL 5 MG TABLET PO SCH ×3 (08:19→16:32)
[2021-07-27] MEDS: CEFEPIME 1 GM in SODIUM CHLORIDE 0.9% 50ML 50 ML IV SCH (09:40)
[2021-07-27] MEDS: ONDANSETRON HCL INJ 2MG/ML 2ML 2 MG/ML VIAL IV PRN ×2 (09:40→13:40)
[2021-07-27 10:09] LABS: FERRITIN 1250.43 ng/mL (4.63-204.00)
[2021-07-27] MEDS ORDERED: SODIUM CHLORIDE 0.9% 250ML 250 ML IV ONE (11:30)
[2021-07-27 11:42] LABS: BASOPHILS # (AUTO) 0.1 (0.0-0.1); BASOPHILS % 0.4 % (0.0-1.0); EOSINOPHILS # (AUTO) 0.2 (0.0-0.4); HEMATOCRIT 28.3 % (34.2-44.1); HEMOGLOBIN 8.7 g/dL (12.0-16.0); LYMPHOCYTES # (AUTO) 0.9 (1.0-3.2); LYMPHOCYTES % 5.8 % (18.0-39.1); MEAN CORPUSCULAR HEMOGLOBIN 29.1 pg (28-32); MEAN CORPUSCULAR HGB CONC 30.7 g/dL (31-35); MEAN CORPUSCULAR VOLUME 94.6 fL (81-99); MONOCYTES # (AUTO) 1.3 (0.2-0.8); MONOCYTES % 8.3 % (4.4-11.3); NEUTROPHILS # (AUTO) 13.1 (2.1-6.9); NEUTROPHILS % 83.9 % (38.7-80.0); PLATELET COUNT 213 x10e3/uL (140-360); RED BLOOD COUNT 2.99 x10e6/uL (3.6-5.1); RED CELL DISTRIBUTION WIDTH 22.1 % (11.7-14.4)
[2021-07-27] MEDS: VANCOMYCIN 250MG/5ML ORAL SOLN PO SCH ×2 (13:37→17:28)
[2021-07-27] MEDS: FAMOTIDINE 20 MG/2 ML VIAL IV SCH (16:33)
[2021-07-27] MEDS: ATORVASTATIN 40 MG TAB PO SCH (20:31)
[2021-07-28] VITALS (26 sets, daily range): BP systolic 87–122; BP diastolic 46–67
[2021-07-28] MEDS: VANCOMYCIN 250MG/5ML ORAL SOLN PO SCH ×5 (00:17→23:57)
[2021-07-28] MEDS: METRONIDAZOLE 500MG/NS 100ML 100 ML IV SCH ×2 (01:30→08:09)
[2021-07-28] MEDS: NOREPINEPHRINE 8 MG/D5W 250 ML 250 ML IV SCH (04:13)
[2021-07-28 05:08] LABS: BASOPHILS # (AUTO) 0.1 (0.0-0.1); BASOPHILS % 0.5 % (0.0-1.0); EOSINOPHILS # (AUTO) 0.2 (0.0-0.4); EOSINOPHILS % 1.3 % (0.0-6.0); HEMATOCRIT 28.1 % (34.2-44.1); HEMOGLOBIN 8.9 g/dL (12.0-16.0); LYMPHOCYTES # (AUTO) 0.8 (1.0-3.2); LYMPHOCYTES % 6.1 % (18.0-39.1); MEAN CORPUSCULAR HEMOGLOBIN 29.5 pg (28-32); MEAN CORPUSCULAR HGB CONC 31.7 g/dL (31-35); MONOCYTES # (AUTO) 1.2 (0.2-0.8); MONOCYTES % 8.9 % (4.4-11.3); NEUTROPHILS # (AUTO) 10.7 (2.1-6.9); NEUTROPHILS % 82.4 % (38.7-80.0); PLATELET COUNT 230 x10e3/uL (140-360); RED BLOOD COUNT 3.02 x10e6/uL (3.6-5.1); RED CELL DISTRIBUTION WIDTH 21.7 % (11.7-14.4)
[2021-07-28 05:31] LABS: MAGNESIUM 2.5 MG/DL (1.3-2.1); PHOSPHORUS 3.1 MG/DL (2.3-4.7)
[2021-07-28 05:34] LABS: ALBUMIN 2.5 g/dL (3.5-5.0); ALBUMIN/GLOBULIN RATIO 0.6 (0.8-2.0); ANION GAP 18.6 mmol/L (8-16); CALCIUM 8.7 mg/dL (8.4-10.2); CREATININE, SERUM 5.51 mg/dL (0.57-1.11); POTASSIUM 3.6 mmol/L (3.5-5.1)
[2021-07-28] MEDS: INSULIN REGULAR, HUMAN 100 UNIT/1 ML SQ SCH ×4 (07:30→20:53)
[2021-07-28] MEDS ORDERED: SODIUM CHLORIDE 0.9% 1000ML 2,000 ML IV PRN (07:45)
[2021-07-28] MEDS: FAMOTIDINE 20 MG/2 ML VIAL IV SCH ×2 (08:09→16:04)
[2021-07-28] MEDS: MIDODRINE HCL 5 MG TABLET PO SCH ×3 (08:09→16:04)
[2021-07-28] MEDS: EPOETIN ALFA-EPBX 10,000 UNIT/ML VIAL SC SCH (15:40)
[2021-07-28] MEDS: ATORVASTATIN 40 MG TAB PO SCH (20:53)
[2021-07-28] MEDS: ONDANSETRON HCL INJ 2MG/ML 2ML 2 MG/ML VIAL IV PRN (21:24)
[2021-07-29] VITALS (27 sets, daily range): BP systolic 80–111; BP diastolic 44–70
[2021-07-29] MEDS: NOREPINEPHRINE 8 MG/D5W 250 ML 250 ML IV SCH (00:15)
[2021-07-29 05:07] LABS: BASOPHILS % 0.2 % (0.0-1.0); EOSINOPHILS # (AUTO) 0.1 (0.0-0.4); EOSINOPHILS % 1.4 % (0.0-6.0); HEMATOCRIT 28.3 % (34.2-44.1); HEMOGLOBIN 8.7 g/dL (12.0-16.0); LYMPHOCYTES # (AUTO) 0.8 (1.0-3.2); LYMPHOCYTES % 9.3 % (18.0-39.1); MEAN CORPUSCULAR HEMOGLOBIN 28.8 pg (28-32); MEAN CORPUSCULAR HGB CONC 30.7 g/dL (31-35); MEAN CORPUSCULAR VOLUME 93.7 fL (81-99); MONOCYTES # (AUTO) 0.8 (0.2-0.8); NEUTROPHILS # (AUTO) 7.2 (2.1-6.9); NEUTROPHILS % 79.5 % (38.7-80.0); PLATELET COUNT 217 x10e3/uL (140-360); RED BLOOD COUNT 3.02 x10e6/uL (3.6-5.1)
[2021-07-29 05:28] LABS: ALBUMIN 2.4 g/dL (3.5-5.0); ALBUMIN/GLOBULIN RATIO 0.6 (0.8-2.0); ANION GAP 18.1 mmol/L (8-16); CALCIUM 8.8 mg/dL (8.4-10.2); CREATININE, SERUM 4.05 mg/dL (0.57-1.11); POTASSIUM 4.1 mmol/L (3.5-5.1)
[2021-07-29] MEDS: VANCOMYCIN 250MG/5ML ORAL SOLN PO SCH ×4 (06:09→23:14)
[2021-07-29] MEDS: INSULIN REGULAR, HUMAN 100 UNIT/1 ML SQ SCH ×4 (07:30→21:14)
[2021-07-29] MEDS: MIDODRINE HCL 5 MG TABLET PO SCH ×3 (07:51→17:42)
[2021-07-29] MEDS: FAMOTIDINE 20 MG/2 ML VIAL IV SCH ×2 (07:51→17:00)
[2021-07-29] MEDS: ATORVASTATIN 40 MG TAB PO SCH (20:44)
[2021-07-30] VITALS (22 sets, daily range): BP systolic 87–119; BP diastolic 49–68
[2021-07-30] MEDS: NOREPINEPHRINE 8 MG/D5W 250 ML 250 ML IV SCH (00:15)
[2021-07-30] MEDS: VANCOMYCIN 250MG/5ML ORAL SOLN PO SCH ×4 (06:46→23:57)
[2021-07-30] MEDS: INSULIN REGULAR, HUMAN 100 UNIT/1 ML SQ SCH ×4 (07:30→20:46)
[2021-07-30] MEDS: MIDODRINE HCL 5 MG TABLET PO SCH ×3 (08:40→17:21)
[2021-07-30] MEDS: FAMOTIDINE 20 MG/2 ML VIAL IV SCH (09:03)
[2021-07-30] MEDS: FAMOTIDINE 20 MG TAB PO SCH (17:21)
[2021-07-30] MEDS: ATORVASTATIN 40 MG TAB PO SCH (21:35)
[2021-07-31] VITALS (7 sets, daily range): BP systolic 90–108; BP diastolic 50–78
[2021-07-31 04:47] LABS: BASOPHILS # (AUTO) 0.1 (0.0-0.1); BASOPHILS % 0.8 % (0.0-1.0); EOSINOPHILS # (AUTO) 0.1 (0.0-0.4); EOSINOPHILS % 1.8 % (0.0-6.0); HEMOGLOBIN 9.3 g/dL (12.0-16.0); LYMPHOCYTES # (AUTO) 1.3 (1.0-3.2); LYMPHOCYTES % 16.7 % (18.0-39.1); MEAN CORPUSCULAR HEMOGLOBIN 28.9 pg (28-32); MEAN CORPUSCULAR VOLUME 93.2 fL (81-99); MONOCYTES # (AUTO) 0.8 (0.2-0.8); MONOCYTES % 10.5 % (4.4-11.3); NEUTROPHILS # (AUTO) 5.5 (2.1-6.9); NEUTROPHILS % 69.4 % (38.7-80.0); PLATELET COUNT 211 x10e3/uL (140-360); RED BLOOD COUNT 3.22 x10e6/uL (3.6-5.1); RED CELL DISTRIBUTION WIDTH 23.1 % (11.7-14.4)
[2021-07-31 05:12] LABS: ALBUMIN 2.4 g/dL (3.5-5.0); ALBUMIN/GLOBULIN RATIO 0.6 (0.8-2.0); ANION GAP 19.1 mmol/L (8-16); CREATININE, SERUM 5.86 mg/dL (0.57-1.11); POTASSIUM 4.1 mmol/L (3.5-5.1)
[2021-07-31] MEDS: VANCOMYCIN 250MG/5ML ORAL SOLN PO SCH ×4 (05:22→23:57)
[2021-07-31] MEDS: INSULIN REGULAR, HUMAN 100 UNIT/1 ML SQ SCH ×4 (07:30→21:00)
[2021-07-31] MEDS: MIDODRINE HCL 5 MG TABLET PO SCH ×3 (08:29→16:39)
[2021-07-31] MEDS: FAMOTIDINE 20 MG TAB PO SCH ×2 (08:29→16:39)
[2021-07-31] MEDS ORDERED: ALBUMIN 25% 12.5GM 0.25 GM/ML BTL IV PRN (09:15)
[2021-07-31] MEDS ORDERED: SODIUM CHLORIDE 0.9% 250ML 500 ML IV PRN (09:15)
[2021-07-31] MEDS ORDERED: ONDANSETRON HCL 4 MG ORAL DISINTEGRATING TAB PO PRN (09:30)
[2021-07-31] MEDS: ACETAMINOPHEN 325 MG TAB PO PRN (10:12)
[2021-07-31] MEDS: ASPIRIN 81 MG ENTERIC COATED PO SCH (13:30)
[2021-07-31] MEDS: EPOETIN ALFA-EPBX 10,000 UNIT/ML VIAL SC SCH (16:39)
[2021-07-31] MEDS: NYSTATIN SUSPENSION 5 ML UDC PO SCH ×2 (16:39→22:08)
[2021-07-31] MEDS: ATORVASTATIN 40 MG TAB PO SCH (22:08)
[2021-08-01 03:01] VITALS: BP 95/54
[2021-08-01] MEDS: VANCOMYCIN 250MG/5ML ORAL SOLN PO SCH ×4 (05:16→23:10)
[2021-08-01] MEDS: INSULIN REGULAR, HUMAN 100 UNIT/1 ML SQ SCH ×4 (07:30→21:11)
[2021-08-01 08:00] VITALS: BP 99/60
[2021-08-01] MEDS: MIDODRINE HCL 5 MG TABLET PO SCH ×3 (08:19→16:29)
[2021-08-01] MEDS: ASPIRIN 81 MG ENTERIC COATED PO SCH (08:19)
[2021-08-01] MEDS: NYSTATIN SUSPENSION 5 ML UDC PO SCH ×3 (08:19→21:10)
[2021-08-01] MEDS: FAMOTIDINE 20 MG TAB PO SCH ×2 (08:19→16:29)
[2021-08-01] MEDS ORDERED: RENA-VITE RX T1 EACH PO (13:00)
[2021-08-01] MEDS ORDERED: OMEGA 3 FISH O1 EACH PO (13:03)
[2021-08-01] MEDS ORDERED: VITAMIN D250 MCG PO (13:05)
[2021-08-01 20:25] VITALS: BP 102/42
[2021-08-01 20:55] VITALS: BP 102/42
[2021-08-01] MEDS: ATORVASTATIN 40 MG TAB PO SCH (21:10)
[2021-08-01 23:53] VITALS: BP 102/54
[2021-08-02 04:00] VITALS: BP 102/59
[2021-08-02] MEDS: ACETAMINOPHEN 325 MG TAB PO PRN ×2 (04:31→21:54)
[2021-08-02] MEDS: VANCOMYCIN 250MG/5ML ORAL SOLN PO SCH ×4 (05:29→23:56)
[2021-08-02 05:41] LABS: BASOPHILS # (AUTO) 0.1 (0.0-0.1); EOSINOPHILS # (AUTO) 0.2 (0.0-0.4); EOSINOPHILS % 2.7 % (0.0-6.0); HEMATOCRIT 32.3 % (34.2-44.1); HEMOGLOBIN 9.7 g/dL (12.0-16.0); LYMPHOCYTES # (AUTO) 1.5 (1.0-3.2); LYMPHOCYTES % 24.2 % (18.0-39.1); MEAN CORPUSCULAR HEMOGLOBIN 29.9 pg (28-32); MEAN CORPUSCULAR VOLUME 99.7 fL (81-99); MONOCYTES # (AUTO) 0.7 (0.2-0.8); MONOCYTES % 11.3 % (4.4-11.3); NEUTROPHILS # (AUTO) 3.7 (2.1-6.9); NEUTROPHILS % 59.7 % (38.7-80.0); PLATELET COUNT 136 x10e3/uL (140-360); RED BLOOD COUNT 3.24 x10e6/uL (3.6-5.1); RED CELL DISTRIBUTION WIDTH 24.9 % (11.7-14.4)
[2021-08-02 06:03] LABS: ALBUMIN 2.4 g/dL (3.5-5.0); ALBUMIN/GLOBULIN RATIO 0.6 (0.8-2.0); ANION GAP 15.6 mmol/L (8-16); CALCIUM 8.5 mg/dL (8.4-10.2); CREATININE, SERUM 5.24 mg/dL (0.57-1.11); POTASSIUM 3.6 mmol/L (3.5-5.1)
[2021-08-02 06:23] LABS: MAGNESIUM 2.3 MG/DL (1.3-2.1); PHOSPHORUS 2.5 MG/DL (2.3-4.7)
[2021-08-02 07:39] VITALS: BP 103/64
[2021-08-02] MEDS: ASPIRIN 81 MG ENTERIC COATED PO SCH (08:46)
[2021-08-02] MEDS: MIDODRINE HCL 5 MG TABLET PO SCH ×3 (08:46→15:28)
[2021-08-02] MEDS: FAMOTIDINE 20 MG TAB PO SCH ×2 (08:46→16:49)
[2021-08-02] MEDS: INSULIN REGULAR, HUMAN 100 UNIT/1 ML SQ SCH ×4 (09:06→21:00)
[2021-08-02] MEDS: NYSTATIN SUSPENSION 5 ML UDC PO SCH ×3 (09:44→21:00)
[2021-08-02] MEDS: BALSAM PERU/CASTOR OIL 60 GM OINT...G. TP SCH (12:00)
[2021-08-02] MEDS: EPOETIN ALFA-EPBX 10,000 UNIT/ML VIAL SC SCH (15:27)
[2021-08-02 19:59] VITALS: BP 105/58
[2021-08-02] MEDS: ATORVASTATIN 40 MG TAB PO SCH (21:00)
[2021-08-03] VITALS (7 sets, daily range): BP systolic 91–145; BP diastolic 50–70
[2021-08-03] MEDS: ACETAMINOPHEN 325 MG TAB PO PRN ×2 (04:27→20:37)
[2021-08-03] MEDS: VANCOMYCIN 250MG/5ML ORAL SOLN PO SCH ×4 (05:17→23:43)
[2021-08-03 05:55] LABS: ANION GAP 13.5 mmol/L (8-16); CALCIUM 8.8 mg/dL (8.4-10.2); CREATININE, SERUM 4.08 mg/dL (0.57-1.11); POTASSIUM 3.5 mmol/L (3.5-5.1)
[2021-08-03] MEDS: INSULIN REGULAR, HUMAN 100 UNIT/1 ML SQ SCH ×4 (07:30→21:00)
[2021-08-03] MEDS: BALSAM PERU/CASTOR OIL 60 GM OINT...G. TP SCH (08:50)
[2021-08-03] MEDS: MIDODRINE HCL 5 MG TABLET PO SCH ×3 (08:50→17:22)
[2021-08-03] MEDS: NYSTATIN SUSPENSION 5 ML UDC PO SCH ×3 (08:50→20:37)
[2021-08-03] MEDS: FAMOTIDINE 20 MG TAB PO SCH ×2 (08:50→17:22)
[2021-08-03] MEDS: ASPIRIN 81 MG ENTERIC COATED PO SCH (08:50)
[2021-08-03] MEDS: ATORVASTATIN 40 MG TAB PO SCH (20:37)
[2021-08-04 00:30] VITALS: BP 125/79
[2021-08-04] MEDS ORDERED: NYSTATIN100000 UNI PO (05:14)
[2021-08-04] MEDS ORDERED: MIDODRINE HCL5 MG PO (05:14)
[2021-08-04] MEDS ORDERED: VANCOCIN HCL250 MG PO (05:14)
[2021-08-04] MEDS: VANCOMYCIN 250MG/5ML ORAL SOLN PO SCH ×2 (05:14→11:54)
[2021-08-04] MEDS ORDERED: FAMOTIDINE20 MG PO (05:14)
[2021-08-04 05:34] LABS: BASOPHILS % 0.7 % (0.0-1.0); EOSINOPHILS # (AUTO) 0.2 (0.0-0.4); HEMATOCRIT 31.4 % (34.2-44.1); HEMOGLOBIN 9.6 g/dL (12.0-16.0); LYMPHOCYTES # (AUTO) 1.2 (1.0-3.2); LYMPHOCYTES % 21.4 % (18.0-39.1); MEAN CORPUSCULAR HEMOGLOBIN 29.7 pg (28-32); MEAN CORPUSCULAR HGB CONC 30.6 g/dL (31-35); MEAN CORPUSCULAR VOLUME 97.2 fL (81-99); MONOCYTES # (AUTO) 0.6 (0.2-0.8); MONOCYTES % 10.4 % (4.4-11.3); NEUTROPHILS # (AUTO) 3.5 (2.1-6.9); PLATELET COUNT 123 x10e3/uL (140-360); RED BLOOD COUNT 3.23 x10e6/uL (3.6-5.1); RED CELL DISTRIBUTION WIDTH 25.1 % (11.7-14.4)
[2021-08-04 05:48] LABS: ALBUMIN 2.3 g/dL (3.5-5.0); ALBUMIN/GLOBULIN RATIO 0.6 (0.8-2.0); ANION GAP 15.5 mmol/L (8-16); CALCIUM 8.6 mg/dL (8.4-10.2); CREATININE, SERUM 5.08 mg/dL (0.57-1.11); MAGNESIUM 2.2 MG/DL (1.3-2.1); PHOSPHORUS 2.9 MG/DL (2.3-4.7); POTASSIUM 3.5 mmol/L (3.5-5.1)
[2021-08-04 06:09] VITALS: BP 97/74
[2021-08-04] MEDS: INSULIN REGULAR, HUMAN 100 UNIT/1 ML SQ SCH ×2 (07:30→11:29)
[2021-08-04] MEDS: FAMOTIDINE 20 MG TAB PO SCH (07:45)
[2021-08-04] MEDS: MIDODRINE HCL 5 MG TABLET PO SCH ×2 (07:45→11:54)
[2021-08-04] MEDS: BALSAM PERU/CASTOR OIL 60 GM OINT...G. TP SCH (07:57)
[2021-08-04] MEDS: ASPIRIN 81 MG ENTERIC COATED PO SCH (07:57)
[2021-08-04 08:00] VITALS: BP 107/65
[2021-08-04] MEDS: NYSTATIN SUSPENSION 5 ML UDC PO SCH (08:50)
[2021-08-04 10:20] VITALS: BP 107/65
[2021-08-04 11:55] VITALS: BP 103/52
== END 2021-08-04 14:11 | disposition home health service (06) | DRG 871 ==
LOC: ER 18:42 → ERHOLD 22:32 → ICU 23:44 → MED/SURG2 07-30 19:55
PROVIDERS: ADMIT Internal Medicine; ATTEND Internal Medicine
PROC: 02HV33Z Insertion of Infusion Device into Superior Vena Cava, Percutaneous Approach (ICD-10-PCS; 2021-07-25)
PROC: 3E043XZ Introduction of Vasopressor into Central Vein, Percutaneous Approach (ICD-10-PCS; principal; 2021-07-26)
PROC: 5A1D70Z Performance of Urinary Filtration, Intermittent, Less than 6 Hours Per Day (ICD-10-PCS; 2021-07-26)
DX: A41.89 Other specified sepsis (principal); R65.21 Severe sepsis with septic shock; U07.1 COVID-19; N18.6 End stage renal disease; I50.43 Acute on chronic combined systolic (congestive) and diastolic (congestive) heart failure; G93.41 Metabolic encephalopathy; J69.0 Pneumonitis due to inhalation of food and vomit; I21.A1 Myocardial infarction type 2; A04.72 Enterocolitis due to Clostridium difficile, not specified as recurrent; E87.1 Hypo-osmolality and hyponatremia; E66.9 Obesity, unspecified; Z68.36 Body mass index [BMI] 36.0-36.9, adult; Z99.2 Dependence on renal dialysis; Z79.899 Other long term (current) drug therapy; E11.21 Type 2 diabetes mellitus with diabetic nephropathy; E03.9 Hypothyroidism, unspecified; Z86.73 Personal history of transient ischemic attack (TIA), and cerebral infarction without residual deficits; I25.5 Ischemic cardiomyopathy; I25.10 Atherosclerotic heart disease of native coronary artery without angina pectoris; D63.8 Anemia in other chronic diseases classified elsewhere; J98.4 Other disorders of lung; I11.0 Hypertensive heart disease with heart failure
CPT/HCPCS: 36415; 70450; 70551; 71045; 74230; 80048; 80053; 80061; 82140; 82550; 82553; 82607; 82728; 82948; 83036; 83540; 83605; 83735; 83880; 84100; 84466; 84484; 85025; 85610; 85730; 86705; 86706; 87040; 87071; 87205; 87340; 87493; 90962; 93005; 93306; 94799; 96360; 96372; 97139; 99251; 99284; J0456; J0692; J1644; J1817; J1940; J2405; J3370; J3475; J7030; J7040; J7050; P9047; Q0162; U0002

== ENCOUNTER 2021-10-30 12:02 | Inpatient (IN) | payer MEDICARE ==
[~2021-10-30] VITALS: Ht 157.5 cm; Wt 73.9 kg
[~2021-10-30 12:02] MED LIST changes: +CLARITIN10 M4 PO; +COREG3.125 MG PO; +FAMOTIDINE20 MG PO; +ISOSORBIDE MONO20 MG PO; +MEGESTROL ACETA20 MG PO; +MIDODRINE HCL5 MG PO; +NYSTATIN100000 UNI PO; +OMEGA 3 FISH O1 EACH PO; +RENA-VITE RX T1 EACH PO; +VANCOCIN HCL250 MG PO
[2021-10-30 12:27] LABS: BASOPHILS # (AUTO) 0.1 (0.0-0.1); BASOPHILS % 0.5 % (0.0-1.0); EOSINOPHILS # (AUTO) 0.2 (0.0-0.4); EOSINOPHILS % 1.9 % (0.0-6.0); HEMATOCRIT 41.2 % (34.2-44.1); HEMOGLOBIN 12.5 g/dL (12.0-16.0); LYMPHOCYTES # (AUTO) 1.2 (1.0-3.2); LYMPHOCYTES % 12.4 % (18.0-39.1); MEAN CORPUSCULAR HEMOGLOBIN 30.9 pg (28-32); MEAN CORPUSCULAR HGB CONC 30.3 g/dL (31-35); MEAN CORPUSCULAR VOLUME 101.7 fL (81-99); MONOCYTES # (AUTO) 0.8 (0.2-0.8); MONOCYTES % 8.3 % (4.4-11.3); NEUTROPHILS # (AUTO) 7.4 (2.1-6.9); NEUTROPHILS % 76.6 % (38.7-80.0); PLATELET COUNT 180 x10e3/uL (140-360); RED BLOOD COUNT 4.05 x10e6/uL (3.6-5.1); RED CELL DISTRIBUTION WIDTH 16.3 % (11.7-14.4)
[2021-10-30] MEDS ORDERED: SODIUM CHLORIDE FLUSH 10 ML SYR INJ PRN (13:30)
[2021-10-30 14:08] LABS: ALBUMIN 2.6 g/dL (3.5-5.0); ALBUMIN/GLOBULIN RATIO 0.6 (0.8-2.0); ANION GAP 19.9 mmol/L (8-16); CALCIUM 8.4 mg/dL (8.4-10.2); CREATININE, SERUM 5.4 mg/dL (0.57-1.11)
[2021-10-30 14:10] LABS: POTASSIUM 2.9 mmol/L (3.5-5.1)
[2021-10-30] MEDS ORDERED: POTASSIUM CHLORIDE 20 MEQ TAB CR PO STA (14:12)
[2021-10-30 14:22] LABS: CREATINE KINASE MB 5.7 ng/mL (0-5.0)
[2021-10-30] MEDS: MIDODRINE HCL 5 MG TABLET PO SCH (15:00)
[2021-10-30] MEDS ORDERED: ASPIRIN 325 MG TAB PO ONE (15:00)
[2021-10-30] MEDS: ASPIRIN 325 MG TAB PO SCH (15:30)
[2021-10-30] MEDS: HEPARIN SOD (PORCINE) 5,000 UNIT/ML VIAL SC SCH ×2 (15:30→21:45)
[2021-10-30 15:48] VITALS: BP 90/58
[2021-10-30 16:02] VITALS: BP 90/58
[2021-10-30] MEDS ORDERED: SODIUM CHLORIDE 0.9% 1000ML 2,000 ML IV PRN (16:30)
[2021-10-30] MEDS ORDERED: MANNITOL 25% 12.5GM/50 ML VIAL IV PRN (16:30)
[2021-10-30] MEDS ORDERED: SODIUM CHLORIDE 0.9% 250ML 500 ML IV PRN (16:30)
[2021-10-30] MEDS ORDERED: ALBUMIN 25% 12.5GM 0.25 GM/ML BTL IV PRN (16:30)
[2021-10-30] MEDS ORDERED: SODIUM CHLORIDE 0.9% 1000ML 2,000 ML ONE (16:40)
[2021-10-30 18:25] VITALS: BP 90/58
[2021-10-30] MEDS ORDERED: RENVELA0.8 GM PO (18:39)
[2021-10-30 19:38] LABS: INR 1.25; PROTHROMBIN TIME 16.8 seconds (11.9-14.5)
[2021-10-30 19:39] LABS: PARTIAL THROMBOPLASTIN TIME 36.8 seconds (23.8-35.5)
[2021-10-30 19:54] LABS: CREATINE KINASE MB 5.3 ng/mL (0-5.0)
[2021-10-30] MEDS ORDERED: HEPARIN SOD (PORCINE) 5,000 UNIT/ML VIAL IV ONE (20:00)
[2021-10-30 20:15] VITALS: BP 98/51
[2021-10-30] MEDS: ATORVASTATIN 40 MG TAB PO SCH (21:00)
[2021-10-30] MEDS ORDERED: HEPARIN 25,000 UNIT DRIP IV ONE (22:39)
[2021-10-30] MEDS: HEPARIN 25,000 UNIT 700 UNIT in DEXTROSE 5% 250ML 250 ML IV SCH (22:40)
[2021-10-30 23:20] VITALS: BP 98/51
[2021-10-31] VITALS (8 sets, daily range): BP systolic 71–116; BP diastolic 51–79
[2021-10-31] MEDS ORDERED: ATIVAN1 MG PO (01:33)
[2021-10-31] MEDS: LORAZEPAM 0.5 MG TAB PO PRN ×2 (03:45→20:30)
[2021-10-31 04:46] LABS: BASOPHILS % 0.5 % (0.0-1.0); EOSINOPHILS # (AUTO) 0.2 (0.0-0.4); HEMATOCRIT 36.1 % (34.2-44.1); HEMOGLOBIN 11.2 g/dL (12.0-16.0); LYMPHOCYTES # (AUTO) 1.3 (1.0-3.2); LYMPHOCYTES % 17.4 % (18.0-39.1); MEAN CORPUSCULAR HEMOGLOBIN 31.2 pg (28-32); MEAN CORPUSCULAR VOLUME 100.6 fL (81-99); MONOCYTES # (AUTO) 0.9 (0.2-0.8); MONOCYTES % 11.3 % (4.4-11.3); NEUTROPHILS # (AUTO) 5.2 (2.1-6.9); NEUTROPHILS % 68.4 % (38.7-80.0); PLATELET COUNT 148 x10e3/uL (140-360); RED BLOOD COUNT 3.59 x10e6/uL (3.6-5.1); RED CELL DISTRIBUTION WIDTH 16.2 % (11.7-14.4)
[2021-10-31 04:54] LABS: PROTHROMBIN TIME 30.6 seconds (11.9-14.5)
[2021-10-31 05:01] LABS: ALBUMIN 2.8 g/dL (3.5-5.0); ALBUMIN/GLOBULIN RATIO 0.7 (0.8-2.0); ANION GAP 18.5 mmol/L (8-16); CALCIUM 7.9 mg/dL (8.4-10.2); CREATININE, SERUM 4.07 mg/dL (0.57-1.11); POTASSIUM 3.5 mmol/L (3.5-5.1)
[2021-10-31 05:20] LABS: CREATINE KINASE MB 3.7 ng/mL (0-5.0)
[2021-10-31 05:44] LABS: MAGNESIUM 1.9 MG/DL (1.3-2.1); PHOSPHORUS 2.7 MG/DL (2.3-4.7)
[2021-10-31 05:51] LABS: PARTIAL THROMBOPLASTIN TIME > 200.0 seconds (23.8-35.5)
[2021-10-31 07:08] LABS: CHOL/HDL RATIO 1.9 (3.0-3.6)
[2021-10-31] MEDS: MIDODRINE HCL 5 MG TABLET PO SCH ×3 (10:10→17:04)
[2021-10-31] MEDS: ASPIRIN 325 MG TAB PO SCH (10:10)
[2021-10-31 14:32] LABS: CREATINE KINASE MB 6.2 ng/mL (0-5.0)
[2021-10-31] MEDS: HEPARIN 25,000 UNIT 700 UNIT in DEXTROSE 5% 250ML 250 ML IV SCH (15:30)
[2021-10-31] MEDS: NYSTATIN SUSPENSION 5 ML UDC PO SCH (21:00)
[2021-10-31] MEDS: ATORVASTATIN 40 MG TAB PO SCH (21:00)
[2021-11-01] VITALS (7 sets, daily range): BP systolic 81–103; BP diastolic 51–65
[2021-11-01 06:24] LABS: BASOPHILS # (AUTO) 0.1 (0.0-0.1); BASOPHILS % 1.1 % (0.0-1.0); EOSINOPHILS # (AUTO) 0.1 (0.0-0.4); EOSINOPHILS % 1.1 % (0.0-6.0); HEMATOCRIT 38.4 % (34.2-44.1); HEMOGLOBIN 11.6 g/dL (12.0-16.0); LYMPHOCYTES # (AUTO) 1.3 (1.0-3.2); LYMPHOCYTES % 20.4 % (18.0-39.1); MEAN CORPUSCULAR HGB CONC 30.2 g/dL (31-35); MEAN CORPUSCULAR VOLUME 102.7 fL (81-99); MONOCYTES # (AUTO) 0.7 (0.2-0.8); MONOCYTES % 10.6 % (4.4-11.3); NEUTROPHILS % 66.1 % (38.7-80.0); PLATELET COUNT 106 x10e3/uL (140-360); RED BLOOD COUNT 3.74 x10e6/uL (3.6-5.1); RED CELL DISTRIBUTION WIDTH 16.5 % (11.7-14.4)
[2021-11-01 06:38] LABS: ALBUMIN/GLOBULIN RATIO 0.8 (0.8-2.0); ANION GAP 20.8 mmol/L (8-16); CALCIUM 8.3 mg/dL (8.4-10.2); CREATININE, SERUM 4.77 mg/dL (0.57-1.11); POTASSIUM 3.8 mmol/L (3.5-5.1)
[2021-11-01] MEDS: MIDODRINE HCL 5 MG TABLET PO SCH ×3 (09:22→16:53)
[2021-11-01] MEDS: NYSTATIN SUSPENSION 5 ML UDC PO SCH ×2 (09:22→16:53)
[2021-11-01] MEDS: ASPIRIN 325 MG TAB PO SCH (09:22)
[2021-11-01] MEDS ORDERED: EPINEPHRINE HCL SYRINGE ONE (13:08)
[2021-11-01] MEDS ORDERED: SUCCINYLCHOLINE CHLORIDE 20 MG/ML 10ML VIAL ONE (13:08)
[2021-11-01] MEDS ORDERED: CALCIUM CHLORIDE 10% 1.36 MEQ/ML 10ML SYR IV ONE (13:08)
[2021-11-01] MEDS ORDERED: ETOMIDATE 2 MG/ML 10 ML INJ IV ONE (13:08)
[2021-11-01] MEDS ORDERED: SODIUM BICARBONATE 8.4% INJ 50 ML SYR ONE (13:08)
== END 2021-11-02 01:15 | disposition expired ==
LOC: ER 12:20 → ERHOLD 13:23 → MED/SURG2 14:37 → IMCU 11-02 00:56
PROVIDERS: ADMIT Internal Medicine; ATTEND Internal Medicine
PROC: 5A1D70Z Performance of Urinary Filtration, Intermittent, Less than 6 Hours Per Day (ICD-10-PCS; principal; 2021-10-30)
DX: I50.43 Acute on chronic combined systolic (congestive) and diastolic (congestive) heart failure (principal); I21.4 Non-ST elevation (NSTEMI) myocardial infarction; N18.6 End stage renal disease; I13.2 Hypertensive heart and chronic kidney disease with heart failure and with stage 5 chronic kidney disease, or end stage renal disease; E87.1 Hypo-osmolality and hyponatremia; I24.9 Acute ischemic heart disease, unspecified; Z99.2 Dependence on renal dialysis; I95.89 Other hypotension; Z79.899 Other long term (current) drug therapy; E03.9 Hypothyroidism, unspecified; Z95.0 Presence of cardiac pacemaker; K52.9 Noninfective gastroenteritis and colitis, unspecified; Z20.822 Contact with and (suspected) exposure to COVID-19; E78.5 Hyperlipidemia, unspecified; Z88.5 Allergy status to narcotic agent; Z88.8 Allergy status to other drugs, medicaments and biological substances; Z91.041 Radiographic dye allergy status; D63.8 Anemia in other chronic diseases classified elsewhere; R06.09 Other forms of dyspnea; E87.6 Hypokalemia; Z79.82 Long term (current) use of aspirin; E11.40 Type 2 diabetes mellitus with diabetic neuropathy, unspecified; Z86.16 Personal history of COVID-19
CPT/HCPCS: 31500; 36415; 71045; 80053; 80061; 82550; 82553; 83036; 83735; 83880; 84100; 84484; 85025; 85610; 85730; 86705; 86706; 87340; 92950; 93005; 93306; 94799; 99285; J0171; J0330; J1644; J7030